=== PATIENT | male | born 1955 | race Caucasian/White ===

== ENCOUNTER → 2017-04-23 | Outpatient (CLI) | payer OTHER ==
[~2017-04-23] MED LIST: ADVIN25/60 INH; ATV/1 PO; CLC100X PO; FLUO20CA36 PO; LAMO200T38 PO; OMEP20CA9 PO; PROP40TA5 PO; PRZ/40 PO; QUET5TAB PO; RISP-99 PO; TRAZ100T29 PO
[2017-04-23 18:13] LABS: BASO % 0.6 %; BASO ABS # 0.04 K/uL (0-0.2); COMPLETE YES; EOS % 1.9 %; HEMATOCRIT 40.8 % (42-52); IG% 0.1 %; LYMPH % 23.1 %; LYMPH ABS # 1.55 K/uL (1.2-3.4); MEAN CELL VOLUME 91.7 fL (80-100); MEAN CORPUSCULAR HEMOGLOBIN 31.2 pg (25-34); MEAN CORPUSCULAR HGB CONC 34.1 g/dl (32-36); MEAN PLATELET VOLUME 9.8 fL (7.4-10.4); MONO % 10.4 %; NEUT % 63.9 %; PLATELET COUNT 213 K/uL (130-400); RED BLOOD COUNT 4.45 M/uL (4.7-6.1)
[2017-04-23 18:21] LABS: ALT/SGPT 32 U/L (12-78); BLOOD UREA NITROGEN 9 mg/dl (7-18); BUN/CREATININE RATIO 12.5 (10-20); CALCIUM 8.8 mg/dl (8.5-10.1); CARBON DIOXIDE 27 mmol/L (21-32); CHLORIDE 106 mmol/L (98-107); CREATININE 0.73 mg/dl (0.60-1.40); GLUCOSE 94 mg/dl (70-99); POTASSIUM 4.2 mmol/L (3.5-5.1); SODIUM 139 mmol/L (136-145)
[2017-04-23 18:32] LABS: ALB/GLOB RATIO 1.8 (0.9-2); ALKALINE PHOSPHATASE 67 U/L (45-117); AST/SGOT 24 U/L (15-37)
[2017-04-23 19:02] LABS: ESTIMATED AVERAGE GLUCOSE 91 mg/dl; HA1C FLAG Normal (Normal)
--- NOTE | 2017-04-29 12:04 | CODING QUERY MEDICAL NECESSITY ---
SUPPORTING DIAGNOSIS NEEDED A supporting diagnosis is required for the test/procedure performed on this patient in order for us to be reimbursed by the patient's insurance. Please provide a supporting diagnosis for the following test/procedure listed below next to the test name along with your signature. *If there is no additional diagnosis for this patient that would support the following test/procedure please document that below next to the test/procedure. Test(s)/Procedure(s) that require a supporting diagnosis: * HEMOGLOBIN A1C DIAGNOSIS: Provider Signature: Date: Thank you Diana Elizondo [facility] Information Management Once completed, please kindly fax back to [phone] For questions please call [phone]
== END | disposition home or self-care (01) ==
LOC: C.LABSPEC 17:33
PROVIDERS: ATTEND Internal Medicine
DX: R53.83 Other fatigue (principal); R63.4 Abnormal weight loss; R73.9 Hyperglycemia, unspecified

== ENCOUNTER 2017-08-03 09:49 | Inpatient (IN) | payer OTHER ==
[~2017-08-03] VITALS: Ht 182.9 cm; Wt 58.7 kg
--- NOTE | 2017-08-03 10:49 | DIAGNOSTIC IMAGING REPORT ---
CHEST ONE VIEW PORTABLE CLINICAL HISTORY: AMS mental status change COMPARISON STUDY: 12/03/2014 FINDINGS: Small left pleural effusion. Parenchymal infiltrate right base. Baseline emphysematous change. Mild stable cardiomegaly. IMPRESSION: 1. Mild parenchymal infiltrate right base. 2. Small left pleural effusion. The above report was generated using voice recognition software. It may contain grammatical, syntax or spelling errors. Electronically signed by: Chente Peralta M.D. 08/03/2017 10:48 AM Dictated Date/Time: 08/03/2017 10:47 AM
--- NOTE | 2017-08-03 11:28 | DIAGNOSTIC IMAGING REPORT ---
HEAD CT NONCONTRAST CT DOSE: 765.09 mGycm HISTORY: Altered mental status. Weakness. TECHNIQUE: Multiaxial CT images of the head were performed without the use of intravenous contrast. Automated exposure control was utilized for this study. A dose lowering technique was utilized adhering to the principles of ALARA. Comparison: Head CT 12/03/2014. Findings: Partial opacification of the right maxillary sinus which has improved. The mastoid air cells are clear. The calvarium and skull base are intact. There is no mass, hematoma, midline shift, acute infarct. White matter hypodensity is nonspecific but suggestive of microvascular ischemic change. The ventricles and sulci demonstrate mild age-related involutional changes. Impression: No significant change compared to the prior study. No acute intracranial abnormality. Electronically signed by: Ray Coker M.D. 08/03/2017 11:27 AM Dictated Date/Time: 08/03/2017 11:23 AM
[2017-08-03] MEDS ORDERED: LEVAQUIN 750MG / 150ML D5W IV STA (11:38)
[2017-08-03 11:49] LABS: BASO % 0.4 %; BASO ABS # 0.03 K/uL (0-0.2); COMPLETE YES; IG% 0.3 %; LYMPH % 13.4 %; LYMPH ABS # 0.92 K/uL (1.2-3.4); MEAN CELL VOLUME 91.5 fL (80-100); MEAN CORPUSCULAR HEMOGLOBIN 30.3 pg (25-34); MEAN CORPUSCULAR HGB CONC 33.1 g/dl (32-36); MEAN PLATELET VOLUME 9.4 fL (7.4-10.4); NEUT % 76.9 %; PLATELET COUNT 166 K/uL (130-400); RED BLOOD COUNT 4.59 M/uL (4.7-6.1); WHITE BLOOD COUNT 6.89 K/uL (4.8-10.8)
[2017-08-03 11:56] LABS: PARTIAL THROMBOPLASTIN RATIO 1.3; PROTHROMBIN TIME (PATIENT) 10.8 SECONDS (9.0-12.0)
[2017-08-03 12:06] LABS: URINE APPEARANCE CLOUDY (CLEAR); URINE BILIRUBIN NEG (NEG); URINE COLOR DK YELLOW; URINE NITRITE POS (NEG); URINE SPECIFIC GRAVITY 1.016 (1.000-1.030); UROBILINOGEN NEG (NEG); ZZURINE CULT IF INDIC CATH YES
[2017-08-03 12:07] LABS: ALT/SGPT 31 U/L (12-78); BLOOD UREA NITROGEN 9 mg/dl (7-18); BUN/CREATININE RATIO 16.5 (10-20); CALCIUM 9.1 mg/dl (8.5-10.1); CARBON DIOXIDE 30 mmol/L (21-32); CHLORIDE 103 mmol/L (98-107); CREATININE 0.55 mg/dl (0.60-1.40); GLUCOSE 97 mg/dl (70-99); POTASSIUM 4.3 mmol/L (3.5-5.1); SODIUM 137 mmol/L (136-145)
[2017-08-03 12:10] LABS: MANUAL MICROSCOPIC REQUIRED? NO; REVIEW REQ? NO
[2017-08-03 12:12] LABS: ALKALINE PHOSPHATASE 78 U/L (45-117); AST/SGOT 19 U/L (15-37)
[2017-08-03] MEDS ORDERED: RISP0.5T10 PO (12:16)
[2017-08-03] MEDS ORDERED: LAMO200T38 PO (12:16)
[2017-08-03] MEDS ORDERED: FLUO20CA35 PO (12:16)
[2017-08-03] MEDS ORDERED: PRLSR20 PO (12:16)
[2017-08-03] MEDS ORDERED: QUET1TAB32 PO (12:16)
[2017-08-03] MEDS ORDERED: LORA-741 PO (12:16)
[2017-08-03] MEDS ORDERED: FLUO40CA8 PO (12:16)
[2017-08-03] MEDS ORDERED: TRAZ100T29 PO (12:17)
[2017-08-03] MEDS ORDERED: FLUV100T12 PO (12:17)
[2017-08-03] MEDS ORDERED: CEFTRIAXONE SOD INJ 1 GM ADDVIAL IV STA (12:32)
[2017-08-03] MEDS ORDERED: INFLUENZA VIRUS QUAD VACCINE 0.5 ML SYR IM. ONE (12:45)
[2017-08-03] MEDS ORDERED: ACETAMINOPHEN 325 MG TAB PO PRN (12:45)
[2017-08-03] MEDS ORDERED: BOOST VANILLA PO SCH ×2 (12:45)
[2017-08-03] MEDS ORDERED: ONDANSETRON INJ 8 MG in DEXTROSE 5% 50ML 50 ML IV PRN (13:45)
[2017-08-03] MEDS ORDERED: LORAZEPAM 0.5 MG TAB PO PRN (13:45)
[2017-08-03 14:44] VITALS: BP 100/65; PULSE 62; TEMP 36.4; O2SAT 90
[2017-08-03] MEDS ORDERED: DO NOT ADMINISTER FLU VACCINE PRN ×3 (14:45)
[2017-08-03] MEDS: SODIUM CHLORIDE 0.9% 1000ML 1,000 ML IV SCH (14:50)
[2017-08-03] MEDS: QUETIAPINE FUMARATE 25 MG TAB PO SCH ×2 (15:48→20:12)
[2017-08-03 16:00] VITALS: BP 100/65; PULSE 62; TEMP 36.4; O2SAT 95; Ht 182.9 cm; Wt 58.7 kg
[2017-08-03] MEDS: LEVALBUTEROL 1.25MG/3ML NEB INH SCH ×2 (16:04→19:46)
[2017-08-03 16:05] VITALS: PULSE 64; O2SAT 95
--- NOTE | 2017-08-03 16:46 | EMERGENCY ROOM VISIT NOTE ---
History Report prepared by Pilar: Deondre Milligan Under the Supervision of: Dr. Cirilo Tony D.O. First contact with patient: 10:12 Chief Complaint: WEAKNESS Stated Complaint: FALLING, WEAKNESS History of Present Illness The patient is a 61 year old male who presents to the Emergency Room with complaints of constant generalized weakness beginning today. He has a history of mental retardation. Per mother, the patient is normally able to speak and would normally know where he is. She states that the patient has been at his mental baseline recently. She is concerned because the patient fell three times today. The patient's mother notes that he has tremors in his upper extremities at baseline. She notes that he takes four doses of Imodium per day as he was prescribed several months ago. The patient states that he fell while doing laundry today. He remembers each fall. He did not hit his head or lose consciousness on any of the falls. The patient also complains of burning with urination. He states this urinary burning been happening "for a while". He denies chest pain, neck pain, abdominal pain, SOB, nausea, or vomiting. The patient has had a cough for over a year. Source of History: patient, parent (mother) Onset: Today Position: other (generalized) Quality: other (weakness) Timing: constant Associated Symptoms: + urinary symptoms (burning), No LOC, No cough (new), No neck pain, No chest pain, No SOB, No nausea, No vomiting, No abdominal pain Review of Systems See HPI for pertinent positives & negatives. A total of 10 systems reviewed and were otherwise negative. Past Medical & Surgical Medical Problems: (1) Mental retardation (2) pneumonia, UTI Surgical Problems: (1) H/O hernia repair Family History No pertinent family history Social History Smoking Status: Former Smoker Housing Status: lives with family Current/Historical Medications Scheduled Fluoxetine (Prozac), 20 MG PO DAILY Fluoxetine (Prozac), 40 MG PO DAILY Fluvoxamine Maleate (Luvox), 50 MG PO HS Lamotrigine (Lamictal), 200 MG PO HS Omeprazole (Prilosec), 20 MG PO BID Quetiapine Fumarate (Seroquel), 50 MG PO TID Risperidone (Risperdal), 0.5 MG PO BID Trazodone Hcl (Trazodone), 200 MG PO HS Scheduled PRN Lorazepam (Ativan), 0.5 MG PO BID PRN for Anxiety Allergies Coded Allergies: Diazepam (Verified Allergy, Unknown, 08/03/17) Physical Exam Vital Signs Date Time Temp Pulse Resp B/P (MAP) Pulse Ox O2 Delivery O2 Flow Rate FiO2 08/03/17 12:49 61 23 93 08/03/17 12:32 108/75 08/03/17 12:19 61 19 95 08/03/17 12:04 60 18 110/65 95 08/03/17 12:01 110/65 08/03/17 11:49 63 24 92 08/03/17 11:42 113/51 08/03/17 10:49 66 23 92 08/03/17 10:37 115/68 08/03/17 10:24 63 08/03/17 10:15 110/71 08/03/17 09:57 36.9 67 18 114/70 94 Room Air Physical Exam GENERAL: Sitting up in bed, disheveled, chronically ill appearing, in no acute distress. HEAD: normal cephalic, atraumatic EYE EXAM: normal conjunctiva, PERRL and EOM's grossly intact OROPHARYNX: no exudate, no erythema, lips, buccal mucosa, and tongue normal and mucous membranes are moist EARS: TMs clear b/l NECK: supple, no nuchal rigidity, no adenopathy, non-tender CHEST: stable to compression anteriorly and posteriorly LUNGS: clear to auscultation. Normal chest wall mechanics HEART: no murmurs, S1 normal and S2 normal ABDOMEN: abdomen soft, non-tender, normo-active bowel sounds, no masses, no rebound or guarding. PELVIS: stable to compression anteriorly and posteriorly BACK: Back is symmetrical on inspection and there is no deformity, no midline tenderness, no CVA tenderness. UPPER EXTREMITIES: full active and passive range of motion of all joints without tenderness to palpation LOWER EXTREMITIES: full active and passive range of motion of all joints without tenderness to palpation NEURO EXAM: Oriented to place and person, but not year. CN II-XII intact. No weakness of the upper or lower extremities. Medical Decision & Procedures ER Provider Diagnostic Interpretation: Radiology results as stated below per my review and the radiologist's interpretation: HEAD CT NONCONTRAST Findings: Partial opacification of the right maxillary sinus which has improved. The mastoid air cells are clear. The calvarium and skull base are intact. There is no mass, hematoma, midline shift, acute infarct. White matter hypodensity is nonspecific but suggestive of microvascular ischemic change. The ventricles and sulci demonstrate mild age-related involutional changes. Impression: No significant change compared to the prior study. No acute intracranial abnormality. Electronically signed by: Ray Coker M.D. 08/03/2017 11:27 AM CHEST ONE VIEW PORTABLE FINDINGS: Small left pleural effusion. Parenchymal infiltrate right base. Baseline emphysematous change. Mild stable cardiomegaly. IMPRESSION: 1. Mild parenchymal infiltrate right base. 2. Small left pleural effusion. The above report was generated using voice recognition software. It may contain grammatical, syntax or spelling errors. Electronically signed by: Chente Peralta M.D. 08/03/2017 10:48 AM Laboratory Results 08/03/17 11:31 Red Blood Count 4.59, Mean Corpuscular Volume 91.5, Mean Corpuscular Hemoglobin 30.3, Mean Corpuscular Hemoglobin Concent 33.1, Mean Platelet Volume 9.4, Neutrophils (%) (Auto) 76.9, Lymphocytes (%) (Auto) 13.4, Monocytes (%) (Auto) 8.0, Eosinophils (%) (Auto) 1.0, Basophils (%) (Auto) 0.4, Neutrophils # (Auto) 5.30, Lymphocytes # (Auto) 0.92, Monocytes # (Auto) 0.55, Eosinophils # (Auto) 0.07, Basophils # (Auto) 0.03 08/03/17 11:31 Test 08/03/17 11:31 08/03/17 11:50 White Blood Count 6.89 K/uL (4.8-10.8) Red Blood Count 4.59 M/uL (4.7-6.1) Hemoglobin 13.9 g/dL (14.0-18.0) Hematocrit 42.0 % (42-52) Mean Corpuscular Volume 91.5 fL (80-100) Mean Corpuscular Hemoglobin 30.3 pg (25-34) Mean Corpuscular Hemoglobin Concent 33.1 g/dl (32-36) Platelet Count 166 K/uL (130-400) Mean Platelet Volume 9.4 fL (7.4-10.4) Neutrophils (%) (Auto) 76.9 % Lymphocytes (%) (Auto) 13.4 % Monocytes (%) (Auto) 8.0 % Eosinophils (%) (Auto) 1.0 % Basophils (%) (Auto) 0.4 % Neutrophils # (Auto) 5.30 K/uL (1.4-6.5) Lymphocytes # (Auto) 0.92 K/uL (1.2-3.4) Monocytes # (Auto) 0.55 K/uL (0.11-0.59) Eosinophils # (Auto) 0.07 K/uL (0-0.5) Basophils # (Auto) 0.03 K/uL (0-0.2) RDW Standard Deviation 45.2 fL (36.4-46.3) RDW Coefficient of Variation 13.5 % (11.5-14.5) Immature Granulocyte % (Auto) 0.3 % Immature Granulocyte # (Auto) 0.02 K/uL (0.00-0.02) Prothrombin Time 10.8 SECONDS (9.0-12.0) Prothromb Time International Ratio 1.0 (0.9-1.1) Activated Partial Thromboplast Time 33.7 SECONDS (21.0-31.0) Partial Thromboplastin Ratio 1.3 Anion Gap 4.0 mmol/L (3-11) Est Creatinine Clear Calc Drug Dose 117.1 ml/min Estimated GFR () 130.4 Estimated GFR (Non- 112.5 BUN/Creatinine Ratio 16.5 (10-20) Calcium Level 9.1 mg/dl (8.5-10.1) Total Bilirubin 0.5 mg/dl (0.2-1) Direct Bilirubin 0.2 mg/dl (0-0.2) Aspartate Amino Transf (AST/SGOT) 19 U/L (15-37) Alanine Aminotransferase (ALT/SGPT) 31 U/L (12-78) Alkaline Phosphatase 78 U/L (45-117) Troponin I < 0.015 ng/ml (0-0.045) Total Protein 5.9 gm/dl (6.4-8.2) Albumin 3.3 gm/dl (3.4-5.0) Urine Color DK YELLOW Urine Appearance CLOUDY (CLEAR) Urine pH 7.0 (4.5-7.5) Urine Specific [place] 1.016 (1.000-1.030) Urine Protein NEG (NEG) Urine Glucose (UA) NEG (NEG) Urine Ketones NEG (NEG) Urine Occult Blood TRACE (NEG) Urine Nitrite POS (NEG) Urine Bilirubin NEG (NEG) Urine Urobilinogen NEG (NEG) Urine Leukocyte Esterase SMALL (NEG) Urine WBC (Auto) 10-30 /hpf (0-5) Urine RBC (Auto) 0-4 /hpf (0-4) Urine Hyaline Casts (Auto) 1-5 /lpf (0-5) Urine Epithelial Cells (Auto) 10-20 /lpf (0-5) Urine Bacteria (Auto) 1+ (NEG) Laboratory results per my review. Medications Administered Medications (Trade) Dose Ordered Sig/Thierno Route Start Time Stop Time Status Last Admin Dose Admin Levofloxacin (Levaquin / D5W) 750 mg NOW STAT IV 08/03/17 11:38 08/03/17 11:39 DC 08/03/17 12:02 750 MG Ceftriaxone Sodium (Rocephin Inj) 1 gm NOW STAT IV 08/03/17 12:32 08/03/17 12:33 DC 08/03/17 12:32 1 GM Enteral Nutritional Formula (Boost) 1 can NOW PO 08/03/17 12:45 08/03/17 16:00 DC 08/03/17 13:41 1 CAN Sodium Chloride 1,000 ml @ 100 mls/hr Q10H IV 08/03/17 12:45 09/02/17 12:44 08/03/17 14:50 100 MLS/HR ECG Indication: weakness Rate (beats per minute): 82 Rhythm: sinus rhythm Findings: 1st degree AV block, no ectopy ED Course ED COURSE: Vital signs were reviewed and appeared normal. The patients medical record was reviewed The above diagnostic studies were performed and reviewed. ED treatments and interventions as stated above. 1020: The patient was evaluated in room B1. A complete history and physical examination was performed. 1138: Ordered Levaquin / D5W 750 mg I. 1232: Ordered Rocephin Inj 1 gm IV. 1235: Upon reevaluation, the patient is resting comfortably. I discussed my findings with the patient and he understands and agrees with the treatment plan. Based on the patients age, coexisting illnesses, exam and lab findings the decision to treat as an inpatient was made. The patient remained stable while under my care. The patient appeared well at the time of discharge. 1245: Ordered Boost 1 can PO. Medical Decision Differential diagnoses include major intracranial, cervical, spinal, thoracic, abdominal, pelvic and neurologic injury. Fracture, contusion, sprain, strain, laceration, abrasions included as well. Patient is a 61-year-old male who was brought in by mom for worsening cough and dysuria. He fell 3 times today and is complaining of feeling very weak. Labs show no significant leukocytosis. BMP all LFTs, bilirubin and troponin was unremarkable. UA shows nitrates, esterase, white cells and +1 bacteria. INR was unremarkable. Patient was updated at bedside. He was given IV antibiotics. He was given IV fluids. Discussed with his PCP who admitted him to the hospital for pneumonia with UTI and recurrent falls. Medication Reconcilliation Current Medication List: was personally reviewed by me Blood Pressure Screening Patient's blood pressure: Normal blood pressure Blood pressure disposition: Did not require urgent referral Consults Time Called: 1232 Consulting Physician: Dr. Samuels -[facility] Returned Call: 1238 I reviewed the patient's case with Dr. Samuels. He will evaluate the patient for further management. Impression Primary Impression: Pneumonia Additional Impression: Recurrent falls Scribe Attestation The scribe's documentation has been prepared under my direction and personally reviewed by me in its entirety. I confirm that the note above accurately reflects all work, treatment, procedures, and medical decision making performed by me. Departure Information Dispostion Being Evaluated By Hospitalist Referrals No Doctor, Assigned (PCP) Patient Instructions My [facility] Problem Qualifiers Primary Impression: Pneumonia Pneumonia type: due to unspecified organism Laterality: unspecified laterality Lung location: unspecified part of lung Qualified Codes: J18.9 - Pneumonia, unspecified organism
[2017-08-03 19:47] VITALS: PULSE 68; O2SAT 95
--- NOTE | 2017-08-03 19:53 | History and Physical ---
History & Physical Date of Service Aug 03, 2017. History & Physical ADMISSION DATE: 08/03/2017 CHIEF COMPLAINT: 61-year-old male admitted through the emergency room with multiple problems including generalized weakness, multiple falls, was also diagnosed with right lower lobe pneumonia and urinary tract infection. PRESENT ILLNESS: patient with chronic obstructive complaint disease, depression, anxiety, obsessive disorder, history of surgery for Zenker's diverticulum. he does have mental handicap His mother called this morning stating that she was very weak. He fell down 3 times. She was concerned about multiple issues with him. I asked her to bring him to the emergency room. He was evaluated by Dr. Tony. Multiple tests were done. His chest x-ray showed evidence of an infiltrate in the right base. His urinalysis was abnormal showing evidence of urinary tract infection. Patient has not had any fever at home or any chills. Denies any congestion. He has had some cough. No sputum. No hemoptysis. Was not having any urinary frequency or burning on urination. Patient was admitted for further treatment PAST MEDICAL HISTORY: * chronic obstructive pulmonary disease. Long-standing. * Long-standing history of depression and anxiety and obsessive disorder.he has been treated by Dr. Saldaña. * Had a long-standing problem with sinus infection and congestion. He has had sinus surgery in the past back in 2004. * Bilateral inguinal hernias repaired in the past but they did recur and require additional surgery * Zenker's diverticulum requiring surgery in 2005 * all his teeth have been extracted. Does not have any dentures. * Mental handicap. SOCIAL HISTORY: he is single. He does have a girlfriend who lives with him and his parents house. They have been together for many years over 20. He does not smoke. He does chew tobacco. No excessive coffee tea or soft drinks. No drugs. 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 FAMILY HISTORY: his father of urine in her bladder cancer with metastases. His mother is living. She has atrial fibrillation, arterial hypertension. He has one brother and one sister. ALLERGIES: * diazepam which caused him psychotic symptomatology CURRENT MEDICATIONS: * lorazepam 0.5 mg twice a day * Fluoxetine 40 mg daily * Luvox 50 mg at bedtime he has 100 mg tablets that he breaks in half * Trazodone 200 mg at bedtime * Omeprazole 20 mg daily * Lamotrigine 200 mg at bedtime * Seroquel 50 mg 3 times a day * Risperidone 0.5 mg at bedtime * B 12 2500 mcg daily * aspirin 81 mg daily * Iron one tablet daily * Advair 250/50 one inhalation twice a day REVIEW OF SYSTEMS: he has been complaining of feeling weak and tired. Denies any headache. No dizziness. He fell down 3 times at home. He just felt weak. There was no loss of consciousness. No head trauma. Denied any earache or sore throat. No neck pain. No chest pain. No shortness of breath. Minimal cough. No sputum. No hemoptysis. No abdominal pain no nausea no vomiting. No problem with his bowel movements. No problem urinating. No pain in his back or extremities. PHYSICAL EXAMINATION: GENERAL : Well developed. Well nourished. No acute distress.weight 58.7 kg, height 182.9 cm, BMI 17.5. VITAL SIGNS : Blood Pressure : 114/70, pulse 67, respiration 18, temperature 36.9, oxygen saturation 94% on room air. SKIN : Warm and dry. No rash. HEENT :He was glasses. Post cataract surgery. Had hearing aid. Does not have any teeth. NECK : Supple. No adenopathy. No thyromegaly. No JVD. Normal carotid pulses. No carotid bruit. CHEST : Normal HEART: Regular heart sounds without any murmur rub or gallop. PMI not displaced. LUNGS: Minimal rhonchi right base. No wheezing. ABDOMEN: Soft nontender. No organomegaly or masses. Good bowel sounds. BACK: No spine or CVA tenderness. EXTREMITIES : No edema clubbing or cyanosis. No joint or muscle tenderness. Good peripheral pulses. NEUROLOGICAL EXAMINATION he is well-developed. No distress. No evidence of any deficit. LABORATORY TEST; WBC count 6809 8, hemoglobin 13.9, hematocrit 42%, platelet count 166,000. Prothrombin time 10.8, INR one, PTT 33.7. Sodium 137, potassium 4.3, chloride 103, CO2 30, BUN 9, creatinine 0.55, glucose 97, calcium 9.1, total bilirubin 0.5, direct bilirubin 2.2, AST 19, ALT 31, alkaline phosphatase 78, total protein 5.9, albumin 3.3, troponin I less than 0.015. CT scan of the the head without contrast was unremarkable. Chest x-ray showed mild parenchymal infiltrates right base. Electrocardiogram showed a sinus rhythm. No acute changes. QT and QTC were normal ASSESSMENT: * right basilar pneumonia * Urinary tract infection * Generalized weakness * Chronic obstructive pulmonary disease * Depression, anxiety, obsessive disorder. * Mental handicap. PLAN: patient was admitted to a medical bed. Resuscitation level I. all his laboratory tests were ordered. Fall precautions ordered. He was started on IV Levaquin, given high flow treatments with Xopenex. He was continued on some of his medications but not all of them. Physical and occupational therapies ordered. Urine culture was ordered. The plan is to wait for his cultures. See how he does with his therapies. Continue his medications. IV fluid. IV Levaquin.
[2017-08-03] MEDS: BOOST VANILLA PO SCH ×2 (20:10)
[2017-08-03] MEDS: HEPARIN SOD 5000 UNIT/0.5 ML CARP SQ SCH (20:32)
[2017-08-03] MEDS: FLUTICASONE/SALMETEROL 250/50 (ADVAIR) 14 PUFF/1 INHALER INH SCH (21:36)
[2017-08-04] VITALS (8 sets, daily range): BP systolic 112–124; BP diastolic 58–70; PULSE 70–88; TEMP 36.7–37.6; O2SAT 90–97
[2017-08-04] MEDS: SODIUM CHLORIDE 0.9% 1000ML 1,000 ML IV SCH ×3 (00:06→22:07)
[2017-08-04] MEDS: LEVALBUTEROL 1.25MG/3ML NEB INH SCH ×4 (01:39→19:04)
--- NOTE | 2017-08-04 07:18 | Clinical Documentation Query ---
CLINICAL DOCUMENTATION QUERY 61 year old male who presents to the Emergency Room with complaints of constant generalized weakness found to have pneumonia and UTI. Nursing assessments and RD consult demonstrate this patient has being underweight. In your clinical opinion is this patient being managed for: ( x ) Mild malnutrition evidenced by BMI of 17.9 and malnutrition risk score of 2 treated with dietary consult, Regular diet, and Boost BID. ( ) Not Agree ( ) Other explanation of clinical findings (Please Explain) ( ) Unable to determine (Please Define) ( ) Need to Discuss The medical record reflects the following clinical findings, treatment, and risk factors. Clinical Indicators: BMI 17.9, Wt 58.7 kg, Risk for malnutrition score of 2. RD consult states that family is reporting weight is down but unsure of exact amount. He is underweight per RD. Treatment: Regular diet, Boost BID, Dietary consult, Risk Factors: Age, acute and chronic illnesses, mentally handicap. Please clarify and document your clinical opinion in the progress notes and discharge summary. Terms such as "probable", "suspected", "likely", "questionable", "possible", or "still to be ruled out" are acceptable. IF IN AGREEMENT, YOU MUST DOCUMENT ABOVE DIAGNOSTIC STATEMENT IN DAILY PROGRESS NOTES AND DISCHARGE SUMMARY. This document is not part of the patient's record. Thank You, Polo Molina, [phone] [phone]
[2017-08-04] MEDS: FLUOXETINE HCL 20 MG CAP PO SCH (08:19)
[2017-08-04] MEDS: BOOST VANILLA PO SCH ×4 (08:19→17:25)
[2017-08-04] MEDS: QUETIAPINE FUMARATE 25 MG TAB PO SCH ×3 (08:19→20:48)
[2017-08-04] MEDS: FLUTICASONE/SALMETEROL 250/50 (ADVAIR) 14 PUFF/1 INHALER INH SCH ×2 (08:19→20:47)
[2017-08-04] MEDS: PANTOprazole SOD 40 MG TAB PO SCH (08:20)
[2017-08-04] MEDS: HEPARIN SOD 5000 UNIT/0.5 ML CARP SQ SCH ×2 (08:22→20:52)
[2017-08-04 08:54] LABS: BASO % 0.4 %; BASO ABS # 0.02 K/uL (0-0.2); COMPLETE YES; EOS % 1.2 %; HEMATOCRIT 41.2 % (42-52); IG% 0.2 %; LYMPH % 20.4 %; LYMPH ABS # 1.06 K/uL (1.2-3.4); MEAN CELL VOLUME 92.2 fL (80-100); MEAN CORPUSCULAR HEMOGLOBIN 30.4 pg (25-34); MEAN PLATELET VOLUME 9.5 fL (7.4-10.4); NEUT % 66.8 %; PLATELET COUNT 186 K/uL (130-400); RED BLOOD COUNT 4.47 M/uL (4.7-6.1)
[2017-08-04 09:18] LABS: BUN/CREATININE RATIO 10.9 (10-20); CALCIUM 8.2 mg/dl (8.5-10.1); CREATININE 0.65 mg/dl (0.60-1.40); POTASSIUM 3.8 mmol/L (3.5-5.1)
[2017-08-04] MEDS ORDERED: LEVOFLOXACIN / D5W 750 MG in PREMIXED IN D5W 150 ML IV SCH (12:00)
[2017-08-04] MEDS ORDERED: LOPERAMIDE HCL 2 MG CAP PO PRN (15:45)
--- NOTE | 2017-08-04 17:43 | Progress Note ---
Progress Note Date of Service Aug 04, 2017. Progress Note 61-year-old male admitted through the emergency room with multiple problems including * Urinary tract infection * Right basilar infiltrate * Generalized weakness * Multiple falls * Chronic obstructive pulmonary disease * Mental handicap Patient was admitted. He was started on IV fluid. IV Levaquin. Physical and occupational therapies were ordered. Overall he seems to have improved. Denied any headache or dizziness. No chest pain. No shortness of breath. Minimal cough. No sputum or hemoptysis. Good appetite. No abdominal pain. No nausea no vomiting. He does have loose stool when he drinks Ensure. EXAMINATION : GENERAL: No distress VITAL SIGNS: Blood pressure 112/69, pulse 71, respiration 18, temperature 37.6, oxygen saturation 90% on room air SKIN: Warm and dry. No rash. HEENT: Decreased hearing. Has hearing aids. Edentulous. NECK: Supple. Nontender. No adenopathy no thyromegaly. No JVD. Scar from prior surgery for Zenker's diverticulum HEART: Regular heart sounds no murmur rub or gallop LUNGS: Decreased breath sounds. No wheezing. ABDOMEN: Soft nontender. No organomegaly or masses BACK: No spinal tenderness EXTREMITIES: No edema clubbing or cyanosis. LABORATORY TESTS : WBC count 5200, hemoglobin 13.6, hematocrit 41.2, platelet count 186,000. Sodium 140, potassium 3.8, chloride 105, CO2 31, BUNs 7, creatinine 0.65, glucose 89, calcium 8.2. Urine culture is growing Escherichia coli. Final report is pending. ASSESSMENT : * Urinary tract infection * Right basilar infiltrate * Generalized weakness * Multiple falls * Chronic obstructive pulmonary disease * Poor nutritional status PLAN : * Urine culture results final report pending * Continue the same antibiotics * Continue IV fluid * Physical and occupational therapies * Supplementation of his meals with the ensure * Anticipating that he will go back home after his acute hospitalization
[2017-08-05] VITALS (7 sets, daily range): BP systolic 107–131; BP diastolic 61–71; PULSE 67–91; TEMP 36.6–37; O2SAT 93–96
[2017-08-05] MEDS: LEVALBUTEROL 1.25MG/3ML NEB INH SCH ×3 (02:11→14:07)
[2017-08-05] MEDS: SODIUM CHLORIDE 0.9% 1000ML 1,000 ML IV SCH ×2 (04:56→14:09)
[2017-08-05] MEDS: FLUTICASONE/SALMETEROL 250/50 (ADVAIR) 14 PUFF/1 INHALER INH SCH (08:31)
[2017-08-05] MEDS: BOOST VANILLA PO SCH ×2 (08:31)
[2017-08-05] MEDS: FLUOXETINE HCL 20 MG CAP PO SCH (08:32)
[2017-08-05] MEDS: PANTOprazole SOD 40 MG TAB PO SCH (08:32)
[2017-08-05] MEDS: QUETIAPINE FUMARATE 25 MG TAB PO SCH ×2 (08:32→14:09)
[2017-08-05] MEDS: HEPARIN SOD 5000 UNIT/0.5 ML CARP SQ SCH (08:38)
[2017-08-05] MEDS ORDERED: LEVOFLOXACIN 750 MG TAB PO SCH (12:00)
[2017-08-05] MEDS ORDERED: LVQ750 PO (17:32)
[2017-08-05] MEDS ORDERED: ADVIN25050 INH (17:32)
--- NOTE | 2017-08-05 17:35 | Discharge Instructions ---
Discharge Instructions Date of Service Aug 05, 2017. Admission Reason for Admission: Pneumonia,Uti Discharge Discharge Diagnosis / Problem: LEFT BASILAR PNEUMONIA. URINARY TRACT INFECTION Discharge Goals Goal(s): Decrease discomfort, Improve function, Increase independence, Improve disease control, Improve nutritional status Activity Recommendations Activity Limitations: resume your previous activity . Instructions / Follow-Up Instructions / Follow-Up Dr Samuels in one week Current Hospital Diet Patient's current hospital diet: Regular Diet Discharge Diet Recommended Diet: Regular Diet Pending Studies Studies pending at discharge: no Medical Emergencies . Who to Call and When: Medical Emergencies: If at any time you feel your situation is an emergency, please call 911 immediately. . Non-Emergent Contact Non-Emergency issues call your: Primary Care Provider . . "Provider Documentation" section prepared by Rodrick Samuels. . VTE Core Measure Inpt VTE Proph given/why not?: Treatment not indicated
--- NOTE | 2017-08-05 17:46 | Progress Note ---
Progress Note Date of Service Aug 05, 2017. Progress Note 61-year-old male admitted with left basilar pneumonia and urinary tract infection. His medical problems also include chronic obstructive pulmonary disease, psychiatric disorder, dyspepsia. Patient was admitted. Started on IV fluid. He is started on IV Levaquin. Overall he is doing well. He is very anxious to go home. He denied any headache or dizziness or lightheadedness. No chest pain no shortness of breath. No cough. No sputum. No nausea no vomiting. He is ambulating. I was able to walk with him around the unit on the fourth floor without any problem. He did not need any support. EXAMINATION : GENERAL: Well-developed in no distress VITAL SIGNS: 107/61, pulse 91, respiration 18, temperature 37, oxygen saturation 93% on room air SKIN: Warm and dry. No rash HEENT: No mucosal abnormalities NECK: Supple. Nontender. No lymph node or thyroid enlargement. HEART: Regular heart sounds LUNGS: Decreased breath sounds. No wheezing no rhonchi ABDOMEN: Soft nontender. BACK: No spinal tenderness EXTREMITIES: No edema clubbing or cyanosis ASSESSMENT : * Right basilar infiltrate consistent with early pneumonia * Urinary tract infection secondary to Escherichia coli * Psychiatric disorder * Dehydration * Chronic obstructive pulmonary disease * Dyspepsia * History of Zenker's diverticulum required surgery PLAN : * His condition has improved. Good appetite. He is ambulating. He remains afebrile. * He is very anxious to go home. * We will go ahead and discharge him tonight. * He will be on oral Levaquin * He will continue his other medications * I will see him in the office in one week
--- NOTE | 2017-08-17 20:17 | Discharge Summary ---
Discharge Summary Date of Service Aug 17, 2017. Discharge Summary ADMISSION DATE: 08/03/2017 DISCHARGE DATE: 08/05/2017 DISCHARGE DIAGNOSES: * right basilar pneumonia * Urinary tract infection * psychiatric disorder * Dehydration * Chronic obstructive pulmonary disease DISCHARGE MEDICATIONS: * Advair Diskus 250/50 one inhalation twice a day * Levofloxacin 750 mg daily for 7 days * Fluoxetine 60 mg daily. He has the 20 mg and the 40 mg capsules at home and he takes one of each * Luvox 100 mg tablets half at bedtime * Lamotrigine 200 mg at bed time * lorazepam 0.5 mg twice a day as needed for anxiety * Omeprazole 20 mg daily * Seroquel 50 mg 3 times a day * Risperidone 0.5 mg twice a day * Trazodone 200 mg at bedtime 61-year-old male admitted with evidence of right lower lobe pneumonia and urinary tract infection. Patient with chronic obstructive lung disease, depression, anxiety, objective disorder, period his mother called the office stating that he was feeling very weak. He fell down 3 times. We asked her to bring him to the emergency room. He was evaluated. He had an abnormal chest x-ray. Also abnormal urinalysis. He was started on IV fluids. Started on IV antibiotics. Arrangements were made for admission. PAST MEDICAL HISTORY, SOCIAL HISTORY, FAMILY HISTORY: As noted on admission history and physical ALLERGIES: diazepam ADMISSION MEDICATIONS: As noted on the home medication list PHYSICAL EXAMINATION AND LABORATORY TESTS ARE NOTED ON ADMISSION HITORY AND PHYSICAL HOSPITAL COURSE: patient was admitted to a medical bed. Resuscitation status I. laboratory tests were ordered. Father risks precautions were taken. He was started on IV Levaquin. Given high flow treatment with Xopenex. Physical and occupational therapies were ordered. Urine culture was done. He remained afebrile. He was not having any significant cough or any sputum. His condition started to improve. His urine culture grew Escherichia coli. He was doing well in therapy. He was ambulating. He was very anxious to go home. Patient was seen by dietitian. Issues related to his diet and supplementation were addressed. Patient was discharged home. Medications as noted above. Followup in the office in one week.
== END 2017-08-05 18:12 | disposition home or self-care (01) | DRG 194 ==
LOC: C.EDB 09:53 → C.MS4W 12:54 → ENRESERV 13:26
PROVIDERS: ADMIT Internal Medicine; ATTEND Internal Medicine
DX: J18.9 Pneumonia, unspecified organism (principal); N39.0 Urinary tract infection, site not specified; J44.9 Chronic obstructive pulmonary disease, unspecified; F79 Unspecified intellectual disabilities; F41.9 Anxiety disorder, unspecified; F32.9 Major depressive disorder, single episode, unspecified; F42.8 Other obsessive-compulsive disorder; Z87.01 Personal history of pneumonia (recurrent); Z87.440 Personal history of urinary (tract) infections; Z87.891 Personal history of nicotine dependence; Z91.81 History of falling

== ENCOUNTER 2024-11-27 20:46 | Inpatient (IN) ==
[2024-11-27 21:42] LABS: Albumin Globulin Ratio 2.1 (0.9-2); Albumin Level 3.6 gm/dl (3.4-5.0); BUN Creatinine Ratio 34.8 (10-20); Bilirubin,Total 0.5 mg/dl (0.2-1.0); Calcium 8.4 mg/dl (8.6-10.3); Creatinine Clr Calc Pharmacy 109.5 ml/min; Globulin 1.7 gm/dl (2.5-4.0); Hematocrit (blood only) 42.4 % (42.0-52.0); Hemoglobin 14.5 g/dl (14.0-18.0); Mean Corpuscular Hgb Conc 34.2 g/dL (32.0-36.0); Mean Corpuscular Volume 96.4 fL (80.0-100.0); Mean Platelet Volume 9.2 fL (9.4-12.4); Platelet Count 350 K/uL (130-400); Potassium 3.5 mmol/L (3.5-5.1); RDW Coefficient of Variation 13.8 % (11.5-14.5); RDW Standard Deviation 49.6 fL (36.4-46.3); Total Protein 5.3 gm/dl (6.0-8.3)
[2024-11-27 21:47] LABS: Troponin I High Sensitivity 12.5 pg/ml (0-20)
[2024-11-27 21:50] LABS: Partial Thromboplastin Ratio 1.2; Partial Thromboplastin Time 31 Seconds (21-31); Prothrombin Time 11.3 Seconds (9.0-12.0)
[2024-11-27 22:07] LABS: Adenovirus PCR Not Detected (NotDetected); Bordetella parapertussis PCR Not Detected (NotDetected); Bordetella pertussis PCR Not Detected (NotDetected); Chlamydia pneumoniae PCR Not Detected (NotDetected); Coronavirus 229E PCR Not Detected (NotDetected); Coronavirus CoV-2 (COVID19)PCR Not Detected (NotDetected); Coronavirus HKU1 PCR Not Detected (NotDetected); Coronavirus NL63 PCR Not Detected (NotDetected); Coronavirus OC43PCR Not Detected (NotDetected); Human Metapneumovirus PCR Not Detected (NotDetected); Influenza A PCR Not Detected (NotDetected); Influenza B PCR Not Detected (NotDetected); Mycoplasma pneumoniae PCR Not Detected (NotDetected); Parainfluenza Virus 1 PCR Not Detected (NotDetected); Parainfluenza Virus 2 PCR Not Detected (NotDetected); Parainfluenza Virus 3 PCR Not Detected (NotDetected); Parainfluenza Virus 4 PCR Not Detected (NotDetected); Respiratory Syncytial VirusPCR Not Detected (NotDetected); Rhinovirus/Enterovirus PCR Not Detected (NotDetected)
[2024-11-27] MEDS: OPTIRAY 320 125ml IV ONE (22:19)
--- NOTE | 2024-11-27 22:32 | XRay Report ---
Exam(s): XR CXR 1 VIEW EXAM: XR Chest, 1 View CLINICAL HISTORY: Reason for exam: Chest pain, nonspecific. TECHNIQUE: Frontal view of the chest. COMPARISON: No relevant prior studies available. FINDINGS: Lungs: There is approximately 9 cm elevation left diaphragm with left lower lung atelectasis versus edema or pneumonia. Small amount of right lung base edema or infiltrate as well. Pleural space: Unremarkable. No pneumothorax. Heart: Unremarkable. No cardiomegaly. Mediastinum: Unremarkable. Normal mediastinal contour. Bones/joints: Unremarkable. No acute fracture. Vasculature: The aortic arch is mildly calcified. IMPRESSION: 1. There is approximately 9 cm elevation left diaphragm with left lower lung atelectasis versus edema or pneumonia. 2. Small amount of right lung base edema or infiltrate as well. Electronically signed by: Young Davis MD 11/27/24 22:31 PM
[2024-11-27 22:34] LABS: Basophils # (auto) 0.04 K/uL (0.00-0.20); Basophils % (auto) 0.2 %; Eosinophils # (auto) 0.02 K/uL (0.00-0.50); Eosinophils % (auto) 0.1 %; Immature Granulocytes # (auto) 0.16 K/uL (0.01-0.20); Immature Granulocytes % (auto) 0.7 %; Lymphocytes # (auto) 1.07 K/uL (1.20-3.40); Lymphocytes % (auto) 4.5 %; Monocytes # (auto) 1.27 K/uL (0.11-0.59); Monocytes % (auto) 5.4 %; Neutrophils # (auto) 21.04 K/uL (1.40-6.50); Neutrophils % (auto) 89.1 %
[2024-11-27 22:45] LABS: Appearance Urine Clear (Clear); Bacteria Urine Automated None Seen (None Seen); Bilirubin Urine Negative (Negative); Blood Urine Negative (Negative); Cast Urine Automated 0-2 /lpf (0-2); Color Urine Dark Yellow; Glucose Urine UA Negative (Negative); Ketones Urine Negative (Negative); Leukocyte Esterase Urine Trace (Negative); Nitrite Urine Negative (Negative); Protein Urine 1+ (Negative); RBC Urine Automated 0-2 /hpf (0-2); Specific Gravity Urine 1.028 (1.000-1.030); Urobilinogen Urine Negative (Negative); WBC Urine Automated 0-5 /hpf (0-5); pH Urine 5.5 (4.5-7.5)
--- NOTE | 2024-11-27 23:14 | CT Scan Report ---
Exam(s): CTA CHEST IV Amt: 119 ML [id number] EXAM: CT Angiography Chest With Intravenous Contrast CLINICAL HISTORY: Reason for exam: substernal chest pain, hx of COPD. TECHNIQUE: Axial computed tomographic angiography images of the chest with intravenous contrast. CTDI is 26.16 mGy and DLP is 383.63 mGy-cm. Automated exposure control was utilized for the study. A dose lowering technique was utilized adhering to the principles of ALARA. MIP reconstructed images were created and reviewed. COMPARISON: No relevant prior studies available. FINDINGS: Pulmonary arteries: The pulmonary arterial tree is well opacified with contrast. No pulmonary embolism is identified. Aorta: The thoracic aorta is mildly calcified and tortuous but nondilated. There is no aneurysm or dissection. Lungs: Small amount of infiltrate in the right middle lobe and right lower lobe as well. Pleural space: Unremarkable. No significant effusion. No pneumothorax. Heart: Unremarkable. No cardiomegaly. No significant pericardial effusion. No evidence of RV dysfunction. Bones/joints: There is a chronic appearing 80% compression fracture of T6 is diffuse osteopenia. No acute fracture is identified. No dislocation. Soft tissues: Unremarkable. Lymph nodes: Unremarkable. No enlarged lymph nodes. Upper abdomen: There is 5 cm elevation of the left diaphragm as well as consolidation and infiltrate involving most of the lower lobe and lingula as well as a portion of the left upper lobe centrally. IMPRESSION: 1. The thoracic aorta is mildly calcified and tortuous but nondilated. There is no aneurysm or dissection. 2. The pulmonary arterial tree is well opacified with contrast. No pulmonary embolism is identified. 3. There is 5 cm elevation of the left diaphragm as well as consolidation and infiltrate involving most of the lower lobe and lingula as well as a portion of the left upper lobe centrally. Consider a combination of pneumonia and atelectasis. There is a small amount of bronchial plugging extending into the left upper lobe. 4. Small amount of infiltrate in the right middle lobe and right lower lobe as well. Electronically signed by: Young Davis MD 11/27/24 23:13 PM
[2024-11-27] MEDS ORDERED: VANCOMYCIN CONSULT ACTIVE PRN (23:17)
[2024-11-27] MEDS: CEFEPIME 2000MG 2,000 MG/20 ML SYR IV STA (23:19)
[2024-11-28] MEDS: DOXYCYCLINE HYCLATE 100 MG in DEXTROSE 5% MINI-B 100 ML IV STA (00:13)
[2024-11-28] MEDS: VANCOMYCIN HCL 1,000 MG in SODIUM CHLORIDE 0.9% 500 ML IV ONE (00:14)
--- NOTE | 2024-11-28 00:29 | Emergency Department Note ---
Impression & Plan Multifocal pneumonia ED Provider Note NAME: MING ESTRADA AGE: 69 SEX: Male INFORMANT: Patient and family ED PROVIDER(S): Christiano Nina MD CHIEF COMPLAINT: Chest pain PLAN: Disposition: Admitted Outpatient prescription management: none Referral: None MEDICAL DECISION MAKING: Patient presented because of worsening pulmonary symptoms and chest discomfort. Workup was initiated. Pneumonia seen on chest x-ray. ECG did not show any acute ischemia. The patient had a marked leukocytosis on his CBC. He is already finished his prednisone and the leukocytosis is above that I would expect for steroids. Patient had blood cultures done. Chemistries were rather unremarkable. He was treated with cefepime, vancomycin and doxycycline for broad-spectrum and atypical coverage. CT imaging of the chest was performed. No pulmonary embolism but multifocal pneumonia seen Most notably in the left lower lobe. Further management in the hospital will be necessary. Patient in agreement. Consultation was made with Dr. Ayaz Ledesma of the [facility] service. Patient was evaluated in the ER for further management. Care/management discussed with: warehouse distribution manager Level of care consideration(s): After review of the information above and other included data, I feel the patient requires escalation of care to admission Triage Nursing notes: reviewed and agree them. Vital Signs: reviewed and remarkable for no significant abnormalities Additional History obtained from: none Chronic Medical/Social Conditions affecting care: COPD Prior/ Outside/ External records reviewed: none Differential Diagnosis: Reactive airway disease, pneumonia, pneumothorax, COPD, CHF, infections, cardiac ischemia, pulmonary embolism, musculoskeletal, gastrointestinal, as well as other pathologies. Diagnostics, independently interpreted by me: ECG: Twelve-lead ECG reveals normal sinus rhythm at 63 beats per minute. No evidence of pericarditis, ischemia, ectopy, or dysrhythmia. Cardiac Monitoring: Cardiac monitoring ordered by me: The patient was placed on continuous cardiac monitoring and observed. It revealed a normal sinus rhythm at 65 beats per minute without ectopy or evidence of dysrhythmia. Medical decision rules: none Imaging studies: Chest x-ray reveals left-sided pneumonia. CT PE study reveals left lower lobe and right perihilar infiltrates. I refer you to the EMR for further details. HPI: 69 year old Male arrives for evaluation of chest pain and cough. Patient presents with intermittent substernal chest discomfort and cough. He has had symptoms for a few weeks and was seen by his primary physician. Has a history of COPD. He was placed on an antibiotic and prednisone. He has finished the prednisone at this point. He was feeling more symptomatic and came to the emergency department. Patient reports his discomfort is a 4 out of 10. Pt denies LOC, headache, fevers, chills, neck pain, nausea, vomiting, abdominal pain, back pain, melena, hematochezia, urinary symptoms, numbness, weakness, or other complaints. PAST MEDICAL HISTORY: See Below, COPD PAST SURGICAL HISTORY: See Below, SOCIAL HISTORY: See Below, former smoker HOME MEDICATIONS: See Below ALLERGIES: See Below VITALS: See Below PHYSICAL EXAMINATION: GENERAL: Awake, alert, nontoxic-appearing, in no distress HENT: Normocephalic, atraumatic. Oropharynx unremarkable. EYES: Normal conjunctiva. Sclera non-icteric. NECK: Inspection normal. Non-tender. Supple. No nuchal rigidity. FROM. No masses. RESPIRATORY: Scattered rhonchi and rales. Wet sounding cough. Mildly increased respiratory effort. CARDIAC: Normal rate. Normal rhythm. No murmurs. No rubs. Extremities warm and well perfused. Pulses equal. No JVD. GI: Soft, non-distended. No tenderness to palpation. No rebound or guarding. No masses. RECTAL: Deferred. MUSCULOSKELETAL: Atraumatic. Chest examination reveals no tenderness. The back is symmetrical on inspection without obvious abnormality. There is no CVA tenderness to palpation. No joint edema. LOWER EXTREMITIES: Calves are equal size bilaterally and non-tender. 2+ edema. No discoloration. NEURO: Normal sensorium. No sensory or motor deficits noted. SKIN: No rash or jaundice noted. PROCEDURES: none CRITICAL CARE: none OBSERVATION NOTE: none Past Med/Surg History Problem List (Updated 11/28/24 @ 00:28 by Christiano Nina MD) Multifocal pneumonia (Acute) COPD exacerbation (Acute) Onychomycosis Hypogonadism in male Insomnia Osteoporosis COPD (chronic obstructive pulmonary disease) Constipation Low back pain Recurrent UTI HTN (hypertension) (~07/13/24) Anemia BPH (benign prostatic hyperplasia) Chewing tobacco nicotine dependence GERD with esophagitis Anxiety Depression Seasonal allergies Asthma Medical History (Updated 11/28/24 @ 00:28 by Christiano Nina MD) Hx of compression fracture of spine L1 and L2 Fracture Risk Assessment Score (FRAX) indicating greater than 3% risk for hip fracture Fracture Risk Assessment Score (FRAX) indicating greater than 20% risk for major osteoporosis-related fracture Rib pain on left side Weight loss Acute UTI Chronic diarrhea Fecal incontinence Agitation Intellectual disability Otomycosis Sensorineural hearing loss (SNHL) of both ears Chronic rhinitis Chronic sinusitis Excessive cerumen in both ear canals Recurrent falls Surgical History History of sinus surgery History of tooth extraction History of cataract extraction with lens replacement History of clubfoot correction History of hernia repair Family History (Updated 08/11/24 @ 14:49 by FELIPE Cochran) Mother Hearing loss Father Hypertension Cancer Prostate cancer Rheumatoid arthritis Aunt Stroke Grandfather (Maternal) Stomach cancer Other No family history of adverse response to anesthesia No family history of bleeding disorder Denies family history of Ovarian cancer Diabetes Myocardial infarction Breast cancer Lung cancer Colorectal cancer Social History (Updated 10/18/24 @ 14:17 by SHANNAN Blackburn) Smoking Status: Former smoker Tobacco Type: Cigarettes Age Started Using Tobacco: 18; Age Quit Using Tobacco: 28; packs per day: 0; Second Hand Exposure: No; Do You Dip or Chew Tobacco: Yes; Hx Alcohol Use: Yes Alcohol type: beer Alcohol Intake Frequency: Monthly or Less Hx Substance Use: No Preferred Language: Ukrainian Visual Impairment: Limited Hearing Ability: Use of Hearing Aid marital status: Single Current Living Situation: Family current occupational status: disabled Feels Safe at Home: Yes Childhood Exposure to Second-Hand Smoke: No caffeine: Yes Dental Care, Regularly: No Physical Activity Frequency: Does not Exercise Seatbelt Use: always Sunscreen Use: Yes Assistive Devices: Cane, Glasses and Hearing Aid - Bilateral Allergies Allergies Allergy/AdvReac Type Severity Reaction Status Date / Time diazepam AdvReac Intermediate OPPOSITE Verified 11/16/24 13:28 EFFECT Home Meds Home Medications Medication Instructions Recorded Confirmed acetaminophen 325 mg tablet 650 mg PO QID PRN Pain 06/02/22 11/27/24 (Tylenol) ferrous sulfate 325 mg (65 mg 325 mg PO DAILY 06/02/22 11/27/24 iron) tablet (FeroSul) mecobalamin (vitamin B12) 5,000 5,000 mcg PO DAILY 08/22/22 02/16/25 mcg disintegrating tablet multivitamin 1 tab PO DAILY 06/02/22 11/27/24 vitamin B complex 1 cap PO DAILY 06/02/22 11/27/24 cholecalciferol (vitamin D3) 50 50 mcg PO DAILY 04/07/24 11/27/24 mcg (2,000 unit) capsule (Vitamin D3) melatonin 3 mg tablet 6 mg PO HS PRN Pain 11/27/24 11/27/24 Previous Rx's Medication Instructions Recorded nebulizer accessories #1 ea 10/30/23 nebulizer and compressor #1 ea 10/30/23 omeprazole 40 mg capsule,delayed 40 mg PO DAILY #90 caps 05/17/24 release fluoxetine 20 mg capsule 20 mg PO DAILY #90 caps 06/16/24 fluoxetine 40 mg capsule 40 mg PO DAILY #90 caps 06/16/24 quetiapine 50 mg tablet 50 mg PO BID #180 tabs 06/16/24 trazodone 100 mg tablet 100 mg PO HS #90 tabs 07/13/24 fluticasone fur. 200 mcg-umeclid 1 inh inhalation Q24H #60 ea 09/15/24 62.5 mcg-vilant 25 mcg inhalat.powder (Trelegy Ellipta) sulfamethoxazole 400 0.5 tab PO DAILY 90 days #45 tabs 09/15/24 mg-trimethoprim 80 mg tablet (Bactrim) propranolol 40 mg tablet 40 mg PO BID 90 days #180 tabs 10/06/24 lorazepam 0.5 mg tablet 0.5 mg PO TID anxiety #90 tabs 10/17/24 loperamide 2 mg capsule (Imodium 2 mg PO DAILY PRN loose stool #120 10/18/24 A-D) caps BD GINO 2 GEN PEN NDL 32G 4MM #360 ea 11/24/24 teriparatide 20 mcg/dose (600 20 mcg (0.08 mL) subcut DAILY #2.4 11/24/24 mcg/2.4 mL) subcutaneous pen mL injector Results & Data (ED) Vital Signs Vital Signs - 24 hr 11/27/24 20:53 11/27/24 21:01 11/27/24 21:09 Temperature 36.7 C Temperature Source Temporal Artery Scan Pulse Rate 137 H 65 Pulse Rate [Left Finger] Respiratory Rate 20 Respiratory Effort / Characteristics Non-Labored Spontaneous Respiratory Depth Normal Respiratory Pattern Regular Blood Pressure 164/87 H Blood Pressure [Right Arm] Blood Pressure Mean 112 Blood Pressure Mean [Right Arm] Blood Pressure Position Sitting Pulse Oximetry 97 88 L Oxygen Delivery Method Room Air Room Air Oxygen Flow Rate Sepsis Recent Fever Within 48 Hours No Sepsis New/Unexplained Change in Mental Status No Sepsis Action Taken by Nursing No Action Required Oxygen Flow Rate - Titration 2 Pulse Oximetry Post Tiitration 93 11/27/24 21:09 11/27/24 21:14 11/27/24 23:20 Temperature Temperature Source Pulse Rate Pulse Rate [Left Finger] 63 Respiratory Rate 22 Respiratory Effort / Characteristics Respiratory Depth Respiratory Pattern Blood Pressure Blood Pressure [Right Arm] 153/78 H Blood Pressure Mean Blood Pressure Mean [Right Arm] 103 Blood Pressure Position Pulse Oximetry 95 95 95 Oxygen Delivery Method Room Air Nasal Cannula Nasal Cannula Nasal Cannula Oxygen Flow Rate 2 2 3 Sepsis Recent Fever Within 48 Hours Sepsis New/Unexplained Change in Mental Status Sepsis Action Taken by Nursing Oxygen Flow Rate - Titration Pulse Oximetry Post Tiitration 11/28/24 00:19 Temperature Temperature Source Pulse Rate Pulse Rate [Left Finger] 65 Respiratory Rate 24 Respiratory Effort / Characteristics Respiratory Depth Respiratory Pattern Blood Pressure Blood Pressure [Right Arm] 138/72 Blood Pressure Mean Blood Pressure Mean [Right Arm] 94 Blood Pressure Position Pulse Oximetry 93 Oxygen Delivery Method Nasal Cannula Oxygen Flow Rate 3 Sepsis Recent Fever Within 48 Hours Sepsis New/Unexplained Change in Mental Status Sepsis Action Taken by Nursing Oxygen Flow Rate - Titration Pulse Oximetry Post Tiitration Laboratory Data 11/27/24 21:04 11/27/24 21:04 Lab Results 11/27/24 11/27/24 Range/Units 21:04 22:27 WBC 23.60 H (4.8-10.8) K/ul RBC 4.40 L (4.70-6.10) M/uL Hgb 14.5 (14.0-18.0) g/dl Hct 42.4 (42.0-52.0) % MCV 96.4 (80.0-100.0) fL MCH 33.0 (25.0-34.0) pg MCHC 34.2 (32.0-36.0) g/dL RDW Std Deviation 49.6 H (36.4-46.3) fL RDW Coeff of Fabio 13.8 (11.5-14.5) % Plt Count 350 (130-400) K/uL MPV 9.2 L (9.4-12.4) fL Immature Gran % (Auto) 0.7 % Neut % (Auto) 89.1 % Lymph % (Auto) 4.5 % [place] % (Auto) 5.4 % Eos % (Auto) 0.1 % Baso % (Auto) 0.2 % Neut # (Auto) 21.04 H (1.40-6.50) K/uL Lymph # (Auto) 1.07 L (1.20-3.40) K/uL [place] # (Auto) 1.27 H (0.11-0.59) K/uL Eos # (Auto) 0.02 (0.00-0.50) K/uL Baso # (Auto) 0.04 (0.00-0.20) K/uL Immature Gran # (Auto) 0.16 (0.01-0.20) K/uL PT 11.3 (9.0-12.0) Seconds INR 1.0 (0.9-1.1) APTT 31 (21-31) Seconds PTT Ratio 1.2 Sodium 140 (136-145) mmol/L Potassium 3.5 (3.5-5.1) mmol/L Chloride 107 (98-107) mmol/L Carbon Dioxide 29 (21-32) mmol/L Anion Gap 4 (3-11) BUN 16 (6-23) mg/dl Creatinine 0.46 L (0.6-1.4) mg/dl Est Cr Clr Drug Dosing 109.5 ml/min eGFR 113.23 BUN/Creatinine Ratio 34.8 H (10-20) Glucose 113 H (70-99(Fasting)) mg/dl Calcium 8.4 L (8.6-10.3) mg/dl Total Bilirubin 0.5 (0.2-1.0) mg/dl AST 33 (13-39) U/L ALT 74 H (7-52) U/L Alkaline Phosphatase 126 H (34-104) U/L Troponin I High Sens 12.5 (0-20) pg/ml B-Natriuretic Peptide 365 H (0-100) pg/ml Total Protein 5.3 L (6.0-8.3) gm/dl Albumin 3.6 (3.4-5.0) gm/dl Globulin 1.7 L (2.5-4.0) gm/dl Albumin/Globulin Ratio 2.1 H (0.9-2) Lipase 12 (11-82) U/L Procalcitonin 0.03 (0-0.5) ng/ml Urine Color Dark Yellow Urine Appearance Clear (Clear) Urine pH 5.5 (4.5-7.5) Ur Specific Jesse 1.028 (1.000-1.030) Urine Protein 1+ H (Negative) Urine Glucose (UA) Negative (Negative) Urine Ketones Negative (Negative) Urine Blood Negative (Negative) Urine Nitrite Negative (Negative) Urine Bilirubin Negative (Negative) Urine Urobilinogen Negative (Negative) Ur Leukocyte Esterase Trace H (Negative) Urine WBC (Auto) 0-5 (0-5) /hpf Urine RBC (Auto) 0-2 (0-2) /hpf U Hyaline Cast (Auto) 0-2 (0-2) /lpf U Epithel Cells (Auto) 3-5 H (0-2) /hpf Urine Bacteria (Auto) None Seen (None Seen) Adenovirus (PCR) Not Detected (NotDetected) B. pertussis DNA (PCR) Not Detected (NotDetected) B.parapertussis DNA PCR Not Detected (NotDetected) C. pneumoniae DNA (PCR) Not Detected (NotDetected) Coronavirus OC43 (PCR) Not Detected (NotDetected) Coronavirus HKU1 (PCR) Not Detected (NotDetected) Coronavirus 229E (PCR) Not Detected (NotDetected) SARS-CoV-2 (PCR) Not Detected (NotDetected) Coronavirus NL63 (PCR) Not Detected (NotDetected) Human Metapneumovir PCR Not Detected (NotDetected) Influenza Type A (PCR) Not Detected (NotDetected) Influenza Type B (PCR) Not Detected (NotDetected) M. pneumoniae (PCR) Not Detected (NotDetected) Parainfluenza 1 (PCR) Not Detected (NotDetected) Parainfluenza 2 (PCR) Not Detected (NotDetected) Parainfluenza 3 (PCR) Not Detected (NotDetected) Parainfluenza 4 (PCR) Not Detected (NotDetected) RSV (PCR) Not Detected (NotDetected) Entero/Rhino (PCR) Not Detected (NotDetected) Administered Medications Vancomycin HCl 1,000 mg/ (Sodium Chloride) 520 mls @ 200 mls/hr IV NOW ONE Stop: 11/28/24 01:52 Last Admin: 11/28/24 00:14 Dose: 200 mls/hr Documented By: ISIDRO Doxycycline Hyclate 100 mg/ (Dextrose) 100 mls @ 50 mls/hr IV NOW STA Stop: 11/28/24 01:16 Last Admin: 11/28/24 00:13 Dose: 50 mls/hr Documented By: CTK Discontinued Medications Cefepime HCl (Maxipime 2000mg) 2,000 mg in 20 mls @ 5 mls/min IV NOW STA; Protocol Stop: 11/27/24 22:02 Last Admin: 11/27/24 23:19 Dose: 5 mls/min Documented By: ISIDRO Ioversol (Optiray 320 125ml) 119 ml IV ONCE ONE Stop: 11/27/24 22:19 Last Admin: 11/27/24 22:19 Dose: 119 ml Documented By: Imaging Data Radiologist's Impression: Chest X-Ray 11/27/24 21:02 Exam(s): XR CXR 1 VIEW EXAM: XR Chest, 1 View CLINICAL HISTORY: Reason for exam: Chest pain, nonspecific. TECHNIQUE: Frontal view of the chest. COMPARISON: No relevant prior studies available. FINDINGS: Lungs: There is approximately 9 cm elevation left diaphragm with left lower lung atelectasis versus edema or pneumonia. Small amount of right lung base edema or infiltrate as well. Pleural space: Unremarkable. No pneumothorax. Heart: Unremarkable. No cardiomegaly. Mediastinum: Unremarkable. Normal mediastinal contour. Bones/joints: Unremarkable. No acute fracture. Vasculature: The aortic arch is mildly calcified. IMPRESSION: 1. There is approximately 9 cm elevation left diaphragm with left lower lung atelectasis versus edema or pneumonia. 2. Small amount of right lung base edema or infiltrate as well. Electronically signed by: Young Davis MD 11/27/24 22:31 PM Chest CTA 11/27/24 21:57 Exam(s): CTA CHEST IV Amt: 119 ML [id number] EXAM: CT Angiography Chest With Intravenous Contrast CLINICAL HISTORY: Reason for exam: substernal chest pain, hx of COPD. TECHNIQUE: Axial computed tomographic angiography images of the chest with intravenous contrast. CTDI is 26.16 mGy and DLP is 383.63 mGy-cm. Automated exposure control was utilized for the study. A dose lowering technique was utilized adhering to the principles of ALARA. MIP reconstructed images were created and reviewed. COMPARISON: No relevant prior studies available. FINDINGS: Pulmonary arteries: The pulmonary arterial tree is well opacified with contrast. No pulmonary embolism is identified. Aorta: The thoracic aorta is mildly calcified and tortuous but nondilated. There is no aneurysm or dissection. Lungs: Small amount of infiltrate in the right middle lobe and right lower lobe as well. Pleural space: Unremarkable. No significant effusion. No pneumothorax. Heart: Unremarkable. No cardiomegaly. No significant pericardial effusion. No evidence of RV dysfunction. Bones/joints: There is a chronic appearing 80% compression fracture of T6 is diffuse osteopenia. No acute fracture is identified. No dislocation. Soft tissues: Unremarkable. Lymph nodes: Unremarkable. No enlarged lymph nodes. Upper abdomen: There is 5 cm elevation of the left diaphragm as well as consolidation and infiltrate involving most of the lower lobe and lingula as well as a portion of the left upper lobe centrally. IMPRESSION: 1. The thoracic aorta is mildly calcified and tortuous but nondilated. There is no aneurysm or dissection. 2. The pulmonary arterial tree is well opacified with contrast. No pulmonary embolism is identified. 3. There is 5 cm elevation of the left diaphragm as well as consolidation and infiltrate involving most of the lower lobe and lingula as well as a portion of the left upper lobe centrally. Consider a combination of pneumonia and atelectasis. There is a small amount of bronchial plugging extending into the left upper lobe. 4. Small amount of infiltrate in the right middle lobe and right lower lobe as well. Electronically signed by: Young Davis MD 11/27/24 23:13 PM Discharge Plan Visit Data Chief Complaint: Chest Pain Stated Complaint: CHEST PAIN, SOB, ED Provider: Christiano Nina Discharge Problem: Multifocal pneumonia Forms Stand Alone Forms: My [facility] [employer] Prescriptions Prescriptions: No Action omeprazole 40 mg capsule,delayed release(DR/EC) 40 mg PO DAILY Qty: 90 3RF quetiapine 50 mg tablet 50 mg PO BID Qty: 180 3RF Rx Instructions: TAKE 1 TABLET BY MOUTH TWICE A DAY fluoxetine 20 mg capsule 20 mg PO DAILY Qty: 90 3RF Rx Instructions: TOTAL DOSE 60 MG--TAKES WITH 40 MG CAP fluoxetine 40 mg capsule 40 mg PO DAILY Qty: 90 3RF Rx Instructions: TOTAL DOSE 60 MG--20 MG CAP. Trelegy Ellipta 200-62.5-25 mcg blister with device 1 inh inhalation Q24H Qty: 60 3RF sulfamethoxazole-trimethoprim [Bactrim] 400-80 mg tablet 0.5 tab PO DAILY 90 Days Qty: 45 3RF Rx Instructions: take one half a tablet once a day propranolol 40 mg tablet 40 mg PO BID 90 Days Qty: 180 1RF lorazepam 0.5 mg tablet 0.5 mg PO TID Qty: 90 2RF (DME) BD GINO 2 GEN PEN NDL 32G 4MM See Rx Instructions .Route .MEDSUPPLY Qty: 360 1RF Rx Instructions: As directed NEEDLES TO BE USES WITH TYMLOS INJECTIONS DAILY teriparatide 20 mcg/dose (600mcg/2.4mL) pen injector 20 mcg subcut DAILY Qty: 2.4 3RF (DME) nebulizer accessories Kit See Rx Instructions .ROUTE .MEDSUPPLY Qty: 1 0RF Rx Instructions: As directed (DME) nebulizer and compressor Device See Rx Instructions .ROUTE .MEDSUPPLY Qty: 1 0RF Rx Instructions: As directed mecobalamin (vitamin B12) 5,000 mcg tablet,disintegrating 5,000 mcg PO DAILY vitamin B complex Capsule 1 cap PO DAILY ferrous sulfate [FeroSul] 325 mg (65 mg iron) tablet 325 mg PO DAILY multivitamin Tablet 1 tab PO DAILY acetaminophen [Tylenol] 325 mg tablet 650 mg PO QID PRN (Reason: Pain) cholecalciferol (vitamin D3) [Vitamin D3] 50 mcg (2,000 unit) capsule 50 mcg PO DAILY loperamide [Imodium A-D] 2 mg capsule 2 mg PO DAILY PRN (Reason: loose stool) Qty: 120 2RF trazodone 100 mg tablet 100 mg PO HS Qty: 90 3RF melatonin 3 mg Tablet 6 mg PO HS PRN (Reason: Pain) Referrals Referrals: Syed Capone, [Primary Care Provider] -
[2024-11-28] MEDS ORDERED: VANCOMYCIN CONSULT ACTIVE PRN (02:15)
[2024-11-28] MEDS ORDERED: NON-FORMULARY MEDICATION (Fluticasone-Umeclidin-Vilanter [Trelegy Ellipta] 200-62.5-25 mcg INH SCH (02:15)
[2024-11-28] MEDS ORDERED: ONDANSETRON INJ 2 MG/ML 2 ML VIAL IV PRN (02:15)
--- NOTE | 2024-11-28 03:15 | History & Physical Report ---
Date of Service November 28, 2024 Assessment & Plan (1) Multifocal pneumonia: (2) COPD exacerbation: (3) Generalized weakness: (4) Acute respiratory failure with hypoxia: Plan The patient is a 69-year-old male with past medical history including COPD, osteoporosis, insomnia, constipation, recurring or tract infection, hypertension, BPH, GERD with esophagitis, anxiety with depression, seasonal allergies and asthma. The patient presents to the emergency department with complaint of worsening shortness of breath, dyspnea on exertion, productive cough over the past few days. Workup in the emergency department included chest x-ray showing significant multifocal pneumonia, in part associated with large left hiatal hernia, and bibasilar infiltrates. He was started on vancomycin, cefepime, doxycycline IV and was then referred for evaluation for admission. He was found to have pulse ox 88% on room air, which improved to 94% with 2 L nasal cannula. He did complain of feeling generally weak, and had decreased oral intake over the past few days as well. #Multifocal pneumonia/acute respiratory failure with hypoxia- Respiratory BioFire testing negative Vancomycin IV per pharmacokinetic monitoring Cefepime 2 g IV every 12 hours Doxycycline 100 mg IV every 12 hours DuoNebs every 2 hours as needed Zofran 4 mg IV every 6 hours as needed Consult speech therapy for assessment for possible aspiration Large hiatal hernia/GERD with esophagitis- Place on pantoprazole 40 mg IV daily Consult speech therapy as noted above, patient looks to be an aspiration risk Generalized deconditioning/ambulatory dysfunction- Consult PT/OT Anxiety with depression- Continue, trazodone, quetiapine, fluoxetine and lorazepam Admission and Anticipated Discharge Date Admission Date: November 28, 2024 History of Present Illness Chief Complaint: The patient presents to the emergency department with complaint of worsening shortness of breath, dyspnea on exertion, productive cough over the past few days. Workup in the emergency department included chest x-ray showing significant multifocal pneumonia, in part associated with large left hiatal hernia, and bibasilar infiltrates. He was started on vancomycin, cefepime, doxycycline IV and was then referred for evaluation for admission. Primary Care Provider: Syed Capone DO The patient is a 69-year-old male with past medical history including COPD, osteoporosis, insomnia, constipation, recurring or tract infection, hypertension, BPH, GERD with esophagitis, anxiety with depression, seasonal allergies and asthma. The patient presents to the emergency department with complaint of worsening shortness of breath, dyspnea on exertion, productive cough over the past few days. Workup in the emergency department included chest x-ray showing significant multifocal pneumonia, in part associated with large left hiatal hernia, and bibasilar infiltrates. He was started on vancomycin, cefepime, doxycycline IV and was then referred for evaluation for admission. He was found to have pulse ox 88% on room air, which improved to 94% with 2 L nasal cannula. Allergies Allergy/AdvReac Type Severity Reaction Status Date / Time diazepam AdvReac Intermediate OPPOSITE Verified 11/16/24 13:28 EFFECT Home Medications Medication Instructions Recorded Confirmed Type acetaminophen 325 mg tablet 650 mg PO QID PRN Pain 06/02/22 11/27/24 History (Tylenol) ferrous sulfate 325 mg (65 mg 325 mg PO DAILY 06/02/22 11/27/24 History iron) tablet (FeroSul) mecobalamin (vitamin B12) 5,000 5,000 mcg PO DAILY 06/02/22 11/27/24 History mcg disintegrating tablet multivitamin 1 tab PO DAILY 06/02/22 11/27/24 History vitamin B complex 1 cap PO DAILY 06/02/22 11/27/24 History nebulizer accessories #1 ea 10/30/23 11/27/24 Rx nebulizer and compressor #1 ea 10/30/23 11/27/24 Rx cholecalciferol (vitamin D3) 50 50 mcg PO DAILY 04/07/24 11/27/24 History mcg (2,000 unit) capsule (Vitamin D3) omeprazole 40 mg capsule,delayed 40 mg PO DAILY #90 caps 05/17/24 11/27/24 Rx release fluoxetine 20 mg capsule 20 mg PO DAILY #90 caps 06/16/24 11/27/24 Rx fluoxetine 40 mg capsule 40 mg PO DAILY #90 caps 06/16/24 11/27/24 Rx quetiapine 50 mg tablet 50 mg PO BID #180 tabs 06/16/24 11/27/24 Rx trazodone 100 mg tablet 100 mg PO HS #90 tabs 07/13/24 11/27/24 Rx fluticasone fur. 200 mcg-umeclid 1 inh inhalation Q24H #60 ea 09/15/24 11/27/24 Rx 62.5 mcg-vilant 25 mcg inhalat.powder (Trelegy Ellipta) sulfamethoxazole 400 0.5 tab PO DAILY 90 days #45 tabs 09/15/24 11/27/24 Rx mg-trimethoprim 80 mg tablet (Bactrim) propranolol 40 mg tablet 40 mg PO BID 90 days #180 tabs 10/06/24 11/27/24 Rx lorazepam 0.5 mg tablet 0.5 mg PO TID anxiety #90 tabs 10/17/24 11/27/24 Rx loperamide 2 mg capsule (Imodium 2 mg PO DAILY PRN loose stool #120 10/18/24 11/27/24 Rx A-D) caps BD GINO 2 GEN PEN NDL 32G 4MM #360 ea 11/24/24 11/27/24 Rx teriparatide 20 mcg/dose (600 20 mcg (0.08 mL) subcut DAILY #2.4 11/24/24 11/27/24 Rx mcg/2.4 mL) subcutaneous pen mL injector melatonin 3 mg tablet 6 mg PO HS PRN Pain 11/27/24 11/27/24 History Past Med/Surg History Problem List (Updated 11/28/24 @ 03:11 by Ayaz Ledesma MD) Acute respiratory failure with hypoxia Generalized weakness Ambulatory dysfunction Multifocal pneumonia (Acute) COPD exacerbation (Acute) Onychomycosis Hypogonadism in male Insomnia Osteoporosis COPD (chronic obstructive pulmonary disease) Constipation Low back pain Recurrent UTI HTN (hypertension) (~07/13/24) Anemia BPH (benign prostatic hyperplasia) Chewing tobacco nicotine dependence GERD with esophagitis Anxiety Depression Seasonal allergies Asthma Medical History (Updated 11/28/24 @ 03:11 by Ayaz Ledesma MD) Hx of compression fracture of spine L1 and L2 Fracture Risk Assessment Score (FRAX) indicating greater than 3% risk for hip fracture Fracture Risk Assessment Score (FRAX) indicating greater than 20% risk for major osteoporosis-related fracture Rib pain on left side Weight loss Acute UTI Chronic diarrhea Fecal incontinence Agitation Intellectual disability Otomycosis Sensorineural hearing loss (SNHL) of both ears Chronic rhinitis Chronic sinusitis Excessive cerumen in both ear canals Recurrent falls Surgical History History of sinus surgery History of tooth extraction History of cataract extraction with lens replacement History of clubfoot correction History of hernia repair Family History (Updated 08/11/24 @ 14:49 by FELIPE Cochran) Mother Hearing loss Father Hypertension Cancer Prostate cancer Rheumatoid arthritis Aunt Stroke Grandfather (Maternal) Stomach cancer Other No family history of adverse response to anesthesia No family history of bleeding disorder Denies family history of Ovarian cancer Diabetes Myocardial infarction Breast cancer Lung cancer Colorectal cancer Social History (Updated 10/18/24 @ 14:17 by SHANNAN Blackburn) Smoking Status: Former smoker Tobacco Type: Cigarettes Age Started Using Tobacco: 18; Age Quit Using Tobacco: 28; packs per day: 0; Second Hand Exposure: No; Do You Dip or Chew Tobacco: Yes; Hx Alcohol Use: Yes Alcohol type: beer Alcohol Intake Frequency: Monthly or Less Hx Substance Use: No Preferred Language: Georgian Visual Impairment: Limited Hearing Ability: Use of Hearing Aid marital status: Single Current Living Situation: Family current occupational status: disabled Feels Safe at Home: Yes Childhood Exposure to Second-Hand Smoke: No caffeine: Yes Dental Care, Regularly: No Physical Activity Frequency: Does not Exercise Seatbelt Use: always Sunscreen Use: Yes Assistive Devices: Cane, Glasses and Hearing Aid - Bilateral Review of Systems Review of Systems: The patient denies chest pain, palpitations, lower extremity swelling, sore throat, fevers, chills, sweats, weight change, fatigue, nausea, vomiting, diarrhea , constipation, abdominal pain, pelvic pain, blood in urine or stool, dysuria, urinary frequency or urgency, lightheadedness, dizziness, headache, memory loss, loss of consciousness, rash, abnormal bruising or bleeding, imbalance, focal weakness, numbness or tingling in arms or legs, generalized a rthralgias or myalgias, back or neck pain, or night sweats. The review of systems is otherwise negative other than for that already noted above, and at least 10 systems have been reviewed. Physical Exam Physical Exam: The patient is awake, alert and oriented 3, well developed and well nourished, normocephalic and atraumatic, lying in bed and in no acute distress. HEENT--PERRL, EOMI, mucous membranes and oropharynx mildly dry. Neck--supple. No JVD. No bruits. Thyroid normal, trachea midline, no adenopathy. Heart--normal S1 and S2. No murmurs, rubs or gallops. Lungs--clear bilaterally, no respiratory distress, no accessory muscle use. Abdomen--normal bowel sounds and soft. Nontender. Nondistended, no hernias or masses, no organomegaly. Extremities--no cyanosis or clubbing. No edema. Dermatologic--skin is mildly dry Neurologic--cranial nerves II through XII grossly intact. Rheumatologic--normal range of motion. Psychiatric--normal affect. Results & Data Results & Data Vital Signs (Past 12 Hours) Vital Signs Temp Pulse Pulse Resp BP BP Pulse Ox 11/28/24 02:42 36.7 C 61 18 132/72 92 11/28/24 02:08 36.6 C 64 20 143/72 H 97 11/28/24 02:00 11/28/24 01:31 61 20 142/70 H 94 11/28/24 00:52 64 11/28/24 00:19 65 24 138/72 93 11/27/24 23:20 63 22 153/78 H 95 11/27/24 21:14 95 11/27/24 21:09 95 11/27/24 21:09 88 L 11/27/24 21:01 65 11/27/24 20:53 36.7 C 137 H 20 164/87 H 97 O2 Del Method O2 Flow Rate 11/28/24 02:42 Nasal Cannula 3.0 11/28/24 02:08 Nasal Cannula 3 11/28/24 02:00 Nasal Cannula 3 11/28/24 01:31 Nasal Cannula 3 11/28/24 00:52 11/28/24 00:19 Nasal Cannula 3 11/27/24 23:20 Nasal Cannula 3 11/27/24 21:14 Nasal Cannula 2 11/27/24 21:09 Room Air, Nasal Cannula 2 11/27/24 21:09 Room Air 11/27/24 21:01 11/27/24 20:53 Room Air Code Status & VTE Plan Code Status Full code VTE Prophylaxis Plan VTE Prophylaxis will be ordered: Yes PG Care Time/CCT Total # of Minutes Spent Total Time Spent with Patient: Total time spent is greater than 50% in coordination of care (as documented) at patient's floor/unit and/or counseling patient: Coding Level of Care Code 58933 INT INP/OBS CARE 3/75MIN Diagnoses Multifocal pneumonia J18.9 COPD exacerbation J44.1 Generalized weakness R53.1 Acute respiratory failure with hypoxia J96.01
[2024-11-28] MEDS: VANCOMYCIN HCL 750 MG in SODIUM CHLORIDE 0.9% 250 ML IV SCH (05:11)
[2024-11-28] MEDS: BUDESONIDE 0.5 MG/2 ML VIAL (PULMICORT) NEB SCH (06:06)
[2024-11-28 06:13] LABS: Basophils # (auto) 0.04 K/uL (0.00-0.20); Basophils % (auto) 0.3 %; Eosinophils # (auto) 0.03 K/uL (0.00-0.50); Eosinophils % (auto) 0.2 %; Hematocrit (blood only) 42.5 % (42.0-52.0); Hemoglobin 14.2 g/dl (14.0-18.0); Immature Granulocytes # (auto) 0.06 K/uL (0.01-0.20); Immature Granulocytes % (auto) 0.4 %; Lymphocytes # (auto) 1.04 K/uL (1.20-3.40); Lymphocytes % (auto) 7.3 %; Mean Corpuscular Hemoglobin 32.4 pg (25.0-34.0); Mean Corpuscular Hgb Conc 33.4 g/dL (32.0-36.0); Mean Platelet Volume 9.2 fL (9.4-12.4); Monocytes # (auto) 0.91 K/uL (0.11-0.59); Monocytes % (auto) 6.4 %; Neutrophils # (auto) 12.17 K/uL (1.40-6.50); Neutrophils % (auto) 85.4 %; Platelet Count 292 K/uL (130-400); RDW Standard Deviation 50.4 fL (36.4-46.3); Red Blood Count 4.38 M/uL (4.70-6.10); White Blood Count 14.25 K/ul (4.8-10.8)
[2024-11-28 06:46] LABS: Albumin Globulin Ratio 1.7 (0.9-2); Albumin Level 3.3 gm/dl (3.4-5.0); BUN Creatinine Ratio 27.7 (10-20); Bilirubin,Total 0.5 mg/dl (0.2-1.0); Calcium 8.1 mg/dl (8.6-10.3); Creatinine Clr Calc Pharmacy 107.2 ml/min; Globulin 1.9 gm/dl (2.5-4.0); Potassium 3.6 mmol/L (3.5-5.1); Total Protein 5.2 gm/dl (6.0-8.3)
[2024-11-28] MEDS: ACETAMINOPHEN 325 MG TAB PO PRN (07:43)
[2024-11-28] MEDS: HEPARIN SOD 5,000 UNIT/0.5 ML VIAL SQ SCH (08:26)
[2024-11-28] MEDS: FLUTICASONE FUROATE 200MCG 14 PUFFS/INHALER INH SCH (08:26)
[2024-11-28] MEDS: VITAMIN B COMPLEX TAB PO SCH (08:26)
[2024-11-28] MEDS: LORazepam 0.5 MG TAB PO SCH (08:26)
[2024-11-28] MEDS: FLUoxetine HCL 20 MG CAP PO SCH (08:26)
[2024-11-28] MEDS: FERROUS SULFATE 325 MG TAB PO SCH (08:27)
[2024-11-28] MEDS: PROPRANOLOL HCL 20 MG TAB PO SCH (08:27)
[2024-11-28] MEDS: CHOLECALCIFEROL 25 MCG (1000 UNITS) TAB PO SCH (08:27)
[2024-11-28] MEDS: guaiFENesin 600 MG TABCR PO SCH (08:27)
[2024-11-28] MEDS: QUEtiapine FUMARATE 25 MG TABLET PO SCH (08:27)
[2024-11-28] MEDS: PANTOprazole 40 MG/10 ML SYR IV SCH (08:27)
[2024-11-28] MEDS: MULTIVITAMIN TAB PO SCH (08:27)
[2024-11-28] MEDS: UMECLIDINIUM/VILANTEROL 62.5/25MCG 7 PUFFS/INHALER INH SCH (08:28)
[2024-11-28] MEDS: CYANOCOBALAMIN (B-12) 2,500 MCG TABLET PO SCH (08:29)
[2024-11-28] MEDS: CEFEPIME 2000MG 2,000 MG/20 ML SYR IV SCH (08:29)
[2024-11-28] MEDS ORDERED: FLUoxetine HCL 20 MG CAP PO SCH (09:00)
--- NOTE | 2024-11-28 09:28 | Hospitalist Progress Note ---
Date of Service November 28, 2024 Assessment & Plan (1) Multifocal pneumonia: Plan: Vancomycin IV Cefepime 2 g IV every 12 hours Doxycycline 100 mg IV every 12 hours DuoNebs every 2 hours as needed (2) COPD exacerbation: Plan: DuoNebs every 2 hours as needed (3) Generalized weakness: Plan: PT/OT (4) Acute respiratory failure with hypoxia: Plan: -2nd to multifocal PNA Plan The patient is a 69-year-old male with past medical history including COPD, osteoporosis, insomnia, constipation, recurring or tract infection, hypertension, BPH, GERD with esophagitis, anxiety with depression, seasonal allergies and asthma. The patient presents to the emergency department with complaint of worsening shortness of breath, dyspnea on exertion, productive cough over the past few days. Workup in the emergency department included chest x-ray showing significant multifocal pneumonia, in part associated with large left hiatal hernia, and bibasilar infiltrates. He was started on vancomycin, cefepime, doxycycline IV and was then referred for evaluation for admission. He was found to have pulse ox 88% on room air, which improved to 94% with 2 L nasal cannula. He did complain of feeling generally weak, and had decreased oral intake over the past few days as well. Admission and Anticipated Discharge Date Admission Date: November 28, 2024 Subjective No events overnight. Pt is complaining of some SOB this am. Review of Systems Review of Systems: CONST: Negative for fever, body aches and chills. HENT: Negative for neck pain/stiffness, headache, congestion, sore throat, swelling. EYES: Negative for discharge/pain or vision changes. RESP: Negative for cough/hemoptysis and shortness of breath. CV: Negative chest pain, difficulty breathing, palpitations. ABD: Negative pain, nausea, vomiting. : Negative increase frequency, dysuria, blood in urine or stool. MUSC: Negative for muscle aches, edema. SKIN: Negative rash, lesions/sores. NEURO: Negative headache, dizziness, weakness. Physical Exam Physical Exam: GENERAL APPEARANCE NAD, activity normal for age, well developed/ well nourished, no cyanosis, pallor, or diaphoresis. EYES lids/conjunctiva normal. EARS/NOSE/THROAT Mucous membranes moist, nares normal, lips/teeth normal uvula midline without oral pharyngeal erythema, exudate or swelling TMs normal bilaterally. No lymphangitis/lymphedema. HEAD/NECK normocephalic atraumatic, no facial trauma, neck is supple. RESPIRATORY respiratory effort normal, speaks in full sentences, no tripod position, no accessory muscle use. Lungs clear to auscultation without rhonchi, wheezes, rales CARDIAC Regular rate and rhythm, no edema. ABDOMINAL Soft, ND/NT. No evidence of fluid wave. No pulsatile masses on exam, rebound tenderness, Meadows sign or pain over Mcburney's point. MUSCLES/EXTREMITIES No abnormal range of motion, no swelling. SKIN Warm, pink and dry. No rashes, dermatoses, petechiae or lesions. NEUROLOGICAL Speech is clear and appropriate. Normal level of consciousness. Gait and coordination are normal. 5/5 strength in all extremities. PSYCH Normal mood and affect. Judgement/competence is appropriate Results & Data Results & Data Vital Signs (Past 12 Hours) Vital Signs Temp Pulse Pulse Resp BP BP Pulse Ox 11/28/24 07:57 36.4 C L 78 18 131/79 91 11/28/24 06:06 62 16 98 11/28/24 02:42 36.7 C 61 18 132/72 92 11/28/24 02:15 61 11/28/24 02:15 36.7 C 61 18 132/72 92 11/28/24 02:15 36.7 C 61 16 132/72 92 11/28/24 02:15 11/28/24 02:08 36.6 C 64 20 143/72 H 97 11/28/24 02:00 11/28/24 01:31 61 20 142/70 H 94 11/28/24 00:52 64 11/28/24 00:19 65 24 138/72 93 11/27/24 23:20 63 22 153/78 H 95 Pulse Ox O2 Del Method O2 Del Method O2 Flow Rate O2 Flow Rate 11/28/24 07:57 Nasal Cannula 2 11/28/24 06:06 Nasal Cannula 3 11/28/24 02:42 Nasal Cannula 3.0 11/28/24 02:15 11/28/24 02:15 Nasal Cannula 3 11/28/24 02:15 Nasal Cannula 3 11/28/24 02:15 92 Nasal Cannula 3 11/28/24 02:08 Nasal Cannula 3 11/28/24 02:00 Nasal Cannula 3 11/28/24 01:31 Nasal Cannula 3 11/28/24 00:52 11/28/24 00:19 Nasal Cannula 3 11/27/24 23:20 Nasal Cannula 3 PG Care Time/CCT Total # of Minutes Spent Total Time Spent with Patient: Total time spent is greater than 50% in coordination of care (as documented) at patient's floor/unit and/or counseling patient: Coding Level of Care Code 39924 SUB INP/OBS CARE 2/35MIN Diagnoses Multifocal pneumonia J18.9 COPD exacerbation J44.1 Generalized weakness R53.1 Acute respiratory failure with hypoxia J96.01
[2024-11-28] MEDS: DOXYCYCLINE HYCLATE 100 MG in DEXTROSE 5% MINI-B 100 ML IV SCH (12:30)
--- NOTE | 2024-11-28 13:03 | Electrocardiogram Report ---
Test Reason : Blood Pressure : */* mmHG Vent. Rate : 63 BPM Atrial Rate : 63 BPM P-R Int : 190 ms QRS Dur : 84 ms QT Int : 392 ms P-R-T Axes : 52 9 66 degrees QTcB Int : 401 ms Normal sinus rhythm Confirmed by Sebastian Leal ([id number]) on 11/28/2024 1:03:21 PM Referred By: REFERRED SELF Confirmed By: Sebastian Leal
[2024-11-28] MEDS: traZODone HCL 100 MG TAB PO SCH (20:13)
[2024-11-29 06:26] LABS: Basophils # (auto) 0.02 K/uL (0.00-0.20); Basophils % (auto) 0.2 %; Eosinophils # (auto) 0.01 K/uL (0.00-0.50); Eosinophils % (auto) 0.1 %; Hematocrit (blood only) 35.9 % (42.0-52.0); Hemoglobin 12.1 g/dl (14.0-18.0); Immature Granulocytes # (auto) 0.07 K/uL (0.01-0.20); Immature Granulocytes % (auto) 0.5 %; Lymphocytes # (auto) 0.89 K/uL (1.20-3.40); Lymphocytes % (auto) 6.9 %; Mean Corpuscular Hemoglobin 32.4 pg (25.0-34.0); Mean Corpuscular Hgb Conc 33.7 g/dL (32.0-36.0); Mean Platelet Volume 9.3 fL (9.4-12.4); Monocytes # (auto) 0.97 K/uL (0.11-0.59); Monocytes % (auto) 7.5 %; Neutrophils # (auto) 10.98 K/uL (1.40-6.50); Neutrophils % (auto) 84.8 %; Platelet Count 233 K/uL (130-400); RDW Coefficient of Variation 13.9 % (11.5-14.5); RDW Standard Deviation 49.3 fL (36.4-46.3); Red Blood Count 3.74 M/uL (4.70-6.10); White Blood Count 12.94 K/ul (4.8-10.8)
[2024-11-29 06:57] LABS: Albumin Globulin Ratio 1.6 (0.9-2); Albumin Level 2.9 gm/dl (3.4-5.0); BUN Creatinine Ratio 25.5 (10-20); Bilirubin,Total 0.6 mg/dl (0.2-1.0); Calcium 7.9 mg/dl (8.6-10.3); Creatinine Clr Calc Pharmacy 107.4 ml/min; Globulin 1.8 gm/dl (2.5-4.0); Magnesium 1.6 mg/dl (1.7-2.4); Potassium 3.2 mmol/L (3.5-5.1); Total Protein 4.7 gm/dl (6.0-8.3)
--- NOTE | 2024-11-29 09:35 | Hospitalist Progress Note ---
Date of Service November 29, 2024 Assessment & Plan (1) Multifocal pneumonia: Plan: Vancomycin IV Cefepime 2 g IV every 12 hours Doxycycline 100 mg IV every 12 hours DuoNebs every 2 hours as needed (2) COPD exacerbation: Plan: DuoNebs every 2 hours as needed (3) Generalized weakness: Plan: PT/OT (4) Acute respiratory failure with hypoxia: Plan: -2nd to multifocal PNA Plan The patient is a 69-year-old male with past medical history including COPD, osteoporosis, insomnia, constipation, recurring or tract infection, hypertension, BPH, GERD with esophagitis, anxiety with depression, seasonal allergies and asthma. The patient presents to the emergency department with complaint of worsening shortness of breath, dyspnea on exertion, productive cough over the past few days. Workup in the emergency department included chest x-ray showing significant multifocal pneumonia, in part associated with large left hiatal hernia, and bibasilar infiltrates. He was started on vancomycin, cefepime, doxycycline IV and was then referred for evaluation for admission. He was found to have pulse ox 88% on room air, which improved to 94% with 2 L nasal cannula. He did complain of feeling generally weak, and had decreased oral intake over the past few days as well. Admission and Anticipated Discharge Date Admission Date: November 28, 2024 Subjective No events overnight. Pt is complaining of some SOB this am. Review of Systems Review of Systems: CONST: Negative for fever, body aches and chills. HENT: Negative for neck pain/stiffness, headache, congestion, sore throat, swelling. EYES: Negative for discharge/pain or vision changes. RESP: Negative for cough/hemoptysis and shortness of breath. CV: Negative chest pain, difficulty breathing, palpitations. ABD: Negative pain, nausea, vomiting. : Negative increase frequency, dysuria, blood in urine or stool. MUSC: Negative for muscle aches, edema. SKIN: Negative rash, lesions/sores. NEURO: Negative headache, dizziness, weakness. Physical Exam Physical Exam: GENERAL APPEARANCE NAD, activity normal for age, well developed/ well nourished, no cyanosis, pallor, or diaphoresis. EYES lids/conjunctiva normal. EARS/NOSE/THROAT Mucous membranes moist, nares normal, lips/teeth normal uvula midline without oral pharyngeal erythema, exudate or swelling TMs normal bilaterally. No lymphangitis/lymphedema. HEAD/NECK normocephalic atraumatic, no facial trauma, neck is supple. RESPIRATORY respiratory effort normal, speaks in full sentences, no tripod position, no accessory muscle use. Lungs clear to auscultation without rhonchi, wheezes, rales CARDIAC Regular rate and rhythm, no edema. ABDOMINAL Soft, ND/NT. No evidence of fluid wave. No pulsatile masses on exam, rebound tenderness, Meadows sign or pain over Mcburney's point. MUSCLES/EXTREMITIES No abnormal range of motion, no swelling. SKIN Warm, pink and dry. No rashes, dermatoses, petechiae or lesions. NEUROLOGICAL Speech is clear and appropriate. Normal level of consciousness. Gait and coordination are normal. 5/5 strength in all extremities. PSYCH Normal mood and affect. Judgement/competence is appropriate Results & Data Results & Data Vital Signs (Past 12 Hours) Vital Signs Temp Pulse Pulse Resp BP Pulse Ox Pulse Ox 11/29/24 07:58 36.4 C L 63 18 147/73 H 91 11/29/24 07:51 64 11/29/24 03:10 36.4 C L 67 18 146/73 H 94 11/29/24 02:15 93 11/28/24 23:08 36.6 C 69 17 161/76 H 94 11/28/24 22:58 63 O2 Del Method O2 Del Method O2 Flow Rate O2 Flow Rate 11/29/24 07:58 Oxymask 3 11/29/24 07:51 11/29/24 03:10 Oxymask 2.0 11/29/24 02:15 Oxymask 2 11/28/24 23:08 Oxymask 2.0 11/28/24 22:58 PG Care Time/CCT Total # of Minutes Spent Total Time Spent with Patient: Total time spent is greater than 50% in coordination of care (as documented) at patient's floor/unit and/or counseling patient: Coding Level of Care Code 24868 SUB INP/OBS CARE 2/35MIN Diagnoses Multifocal pneumonia J18.9 COPD exacerbation J44.1 Generalized weakness R53.1 Acute respiratory failure with hypoxia J96.01
[2024-11-29] MEDS: ALBUT/IPRATROP 3MG/0.5MG NEB 3 ML VIAL NEB PRN (12:26)
--- NOTE | 2024-11-29 12:27 | Electrocardiogram Report ---
Test Reason : Blood Pressure : */* mmHG Vent. Rate : 67 BPM Atrial Rate : 67 BPM P-R Int : 176 ms QRS Dur : 80 ms QT Int : 410 ms P-R-T Axes : 22 2 96 degrees QTcB Int : 433 ms Normal sinus rhythm Low voltage QRS Anterior infarct (cited on or before 27-Nov-2024) Abnormal ECG Confirmed by Sebastian Leal ([id number]) on 11/29/2024 12:26:55 PM Referred By: REFERRED SELF Confirmed By: Sebastian Leal
[2024-11-29] MEDS: NICOTINE 14 MG/24 HR PATCH TD SCH (16:47)
[2024-11-30 07:02] LABS: Basophils # (auto) 0.02 K/uL (0.00-0.20); Basophils % (auto) 0.2 %; Eosinophils # (auto) 0.04 K/uL (0.00-0.50); Eosinophils % (auto) 0.4 %; Hemoglobin 11.2 g/dl (14.0-18.0); Immature Granulocytes # (auto) 0.06 K/uL (0.01-0.20); Immature Granulocytes % (auto) 0.6 %; Lymphocytes # (auto) 0.68 K/uL (1.20-3.40); Lymphocytes % (auto) 6.9 %; Mean Corpuscular Hemoglobin 31.9 pg (25.0-34.0); Mean Corpuscular Hgb Conc 32.9 g/dL (32.0-36.0); Mean Corpuscular Volume 96.9 fL (80.0-100.0); Mean Platelet Volume 9.7 fL (9.4-12.4); Monocytes # (auto) 0.71 K/uL (0.11-0.59); Monocytes % (auto) 7.2 %; Neutrophils # (auto) 8.29 K/uL (1.40-6.50); Neutrophils % (auto) 84.7 %; Platelet Count 206 K/uL (130-400); RDW Coefficient of Variation 13.8 % (11.5-14.5); RDW Standard Deviation 49.2 fL (36.4-46.3); Red Blood Count 3.51 M/uL (4.70-6.10)
[2024-11-30 07:24] LABS: Albumin Globulin Ratio 1.6 (0.9-2); Albumin Level 2.8 gm/dl (3.4-5.0); BUN Creatinine Ratio 26.3 (10-20); Bilirubin,Total 0.5 mg/dl (0.2-1.0); Calcium 7.8 mg/dl (8.6-10.3); Creatinine Clr Calc Pharmacy 132.3 ml/min; Globulin 1.7 gm/dl (2.5-4.0); Magnesium 1.6 mg/dl (1.7-2.4); Potassium 3.1 mmol/L (3.5-5.1); Total Protein 4.5 gm/dl (6.0-8.3)
--- NOTE | 2024-11-30 09:10 | Hospitalist Progress Note ---
Date of Service November 30, 2024 Assessment & Plan (1) Multifocal pneumonia: Plan: Vancomycin IV Cefepime 2 g IV every 12 hours Doxycycline 100 mg IV every 12 hours DuoNebs every 2 hours as needed (2) COPD exacerbation: Plan: DuoNebs every 2 hours as needed (3) Generalized weakness: Plan: PT/OT (4) Acute respiratory failure with hypoxia: Plan: -2nd to multifocal PNA Plan The patient is a 69-year-old male with past medical history including COPD, osteoporosis, insomnia, constipation, recurring or tract infection, hypertension, BPH, GERD with esophagitis, anxiety with depression, seasonal allergies and asthma. The patient presents to the emergency department with complaint of worsening shortness of breath, dyspnea on exertion, productive cough over the past few days. Workup in the emergency department included chest x-ray showing significant multifocal pneumonia, in part associated with large left hiatal hernia, and bibasilar infiltrates. He was started on vancomycin, cefepime, doxycycline IV and was then referred for evaluation for admission. He was found to have pulse ox 88% on room air, which improved to 94% with 2 L nasal cannula. He did complain of feeling generally weak, and had decreased oral intake over the past few days as well. Anticipate D/C home in next 24-48hrs Admission and Anticipated Discharge Date Admission Date: November 28, 2024 Subjective No events overnight. Pt is complaining of some SOB this am. Review of Systems Review of Systems: CONST: Negative for fever, body aches and chills. HENT: Negative for neck pain/stiffness, headache, congestion, sore throat, swelling. EYES: Negative for discharge/pain or vision changes. RESP: Negative for cough/hemoptysis and shortness of breath. CV: Negative chest pain, difficulty breathing, palpitations. ABD: Negative pain, nausea, vomiting. : Negative increase frequency, dysuria, blood in urine or stool. MUSC: Negative for muscle aches, edema. SKIN: Negative rash, lesions/sores. NEURO: Negative headache, dizziness, weakness. Physical Exam Physical Exam: GENERAL APPEARANCE NAD, activity normal for age, well developed/ well nourished, no cyanosis, pallor, or diaphoresis. EYES lids/conjunctiva normal. EARS/NOSE/THROAT Mucous membranes moist, nares normal, lips/teeth normal uvula midline without oral pharyngeal erythema, exudate or swelling TMs normal bilaterally. No lymphangitis/lymphedema. HEAD/NECK normocephalic atraumatic, no facial trauma, neck is supple. RESPIRATORY respiratory effort normal, speaks in full sentences, no tripod position, no accessory muscle use. Lungs clear to auscultation without rhonchi, wheezes, rales CARDIAC Regular rate and rhythm, no edema. ABDOMINAL Soft, ND/NT. No evidence of fluid wave. No pulsatile masses on exam, rebound tenderness, Meadows sign or pain over Mcburney's point. MUSCLES/EXTREMITIES No abnormal range of motion, no swelling. SKIN Warm, pink and dry. No rashes, dermatoses, petechiae or lesions. NEUROLOGICAL Speech is clear and appropriate. Normal level of consciousness. Gait and coordination are normal. 5/5 strength in all extremities. PSYCH Normal mood and affect. Judgement/competence is appropriate Results & Data Results & Data Vital Signs (Past 12 Hours) Vital Signs Temp Pulse Pulse Resp BP Pulse Ox O2 Del Method 11/30/24 07:49 36.6 C 68 22 118/65 95 Nasal Cannula 11/30/24 03:31 36.7 C 61 18 98/54 L 99 Nasal Cannula 11/30/24 00:34 63 11/30/24 00:14 Oxymask 11/29/24 23:26 96/54 L 11/29/24 22:37 36.9 C 64 20 87/45 L 93 Oxymask O2 Flow Rate 11/30/24 07:49 3 11/30/24 03:31 3 11/30/24 00:34 11/30/24 00:14 3 11/29/24 23:26 11/29/24 22:37 PG Care Time/CCT Total # of Minutes Spent Total Time Spent with Patient: Total time spent is greater than 50% in coordination of care (as documented) at patient's floor/unit and/or counseling patient: Coding Level of Care Code 94249 SUB INP/OBS CARE 2/35MIN Diagnoses Multifocal pneumonia J18.9 COPD exacerbation J44.1 Generalized weakness R53.1 Acute respiratory failure with hypoxia J96.01
[2024-11-30] MEDS: LOPERAMIDE HCL 2 MG CAP PO PRN (16:35)
[2024-11-30] MEDS: MELATONIN 3 MG TAB PO PRN (20:57)
[2024-12-01 07:54] LABS: Creatinine Clr Calc Pharmacy 123.1 ml/min; Magnesium 1.5 mg/dl (1.7-2.4)
--- NOTE | 2024-12-01 08:30 | XRay Report ---
XR chest 1V portable CLINICAL HISTORY: Pneumonia. COMPARISON STUDY: Chest radiograph and chest CT November 27, 2024. FINDINGS: Extensive left lung consolidation has slightly progressed. Right lower lung airspace opacit y has also mildly progressed. There is left lung volume loss, slightly increased. Small left pleural effusion is present. There is no pneumothorax. There is no evidence for pulmonary edema. There is und erlying emphysema. IMPRESSION: 1. Progression of extensive left lung pneumonia. Increase in right basilar airspace opacity which is also infectious. 2. Mild increase in left lung volume loss. 3. Small left pleural effusion. 4. Emphysema. ACT 112: Negative or not required by law. Electronically signed by: Johnie Jacobo M.D. 12/01/2024 8:29 AM
[2024-12-01] MEDS: PANTOprazole 40 MG TAB PO SCH (08:41)
[2024-12-01] MEDS: POTASSIUM CHLORIDE / WTR 10 MEQ/100 ML PLCT IV SCH (08:45)
--- NOTE | 2024-12-01 10:52 | Hospitalist Progress Note ---
Date of Service December 01, 2024 Assessment & Plan (1) Multifocal pneumonia: Plan: Vancomycin IV Cefepime 2 g IV every 12 hours Doxycycline 100 mg IV every 12 hours DuoNebs every 2 hours as needed CXR 12/01 shows worsening PNA Con't abx, nebs Requiring supplemental 02 (2) COPD exacerbation: Plan: DuoNebs every 2 hours as needed (3) Generalized weakness: Plan: PT/OT (4) Acute respiratory failure with hypoxia: Plan: -2nd to multifocal PNA Plan The patient is a 69-year-old male with past medical history including COPD, osteoporosis, insomnia, constipation, recurring or tract infection, hypertension, BPH, GERD with esophagitis, anxiety with depression, seasonal allergies and asthma. The patient presents to the emergency department with complaint of worsening shortness of breath, dyspnea on exertion, productive cough over the past few days. Workup in the emergency department included chest x-ray showing significant multifocal pneumonia, in part associated with large left hiatal hernia, and bibasilar infiltrates. He was started on vancomycin, cefepime, doxycycline IV and was then referred for evaluation for admission. He was found to have pulse ox 88% on room air, which improved to 94% with 2 L nasal cannula. He did complain of feeling generally weak, and had decreased oral intake over the past few days as well. Anticipate D/C home in next 24-48hrs Admission and Anticipated Discharge Date Admission Date: November 28, 2024 Subjective No events overnight. Review of Systems Review of Systems: CONST: Negative for fever, body aches and chills. HENT: Negative for neck pain/stiffness, headache, congestion, sore throat, swelling. EYES: Negative for discharge/pain or vision changes. RESP: Negative for cough/hemoptysis and shortness of breath. CV: Negative chest pain, difficulty breathing, palpitations. ABD: Negative pain, nausea, vomiting. : Negative increase frequency, dysuria, blood in urine or stool. MUSC: Negative for muscle aches, edema. SKIN: Negative rash, lesions/sores. NEURO: Negative headache, dizziness, weakness. Physical Exam Physical Exam: GENERAL APPEARANCE NAD, activity normal for age, well developed/ well nourished, no cyanosis, pallor, or diaphoresis. EYES lids/conjunctiva normal. EARS/NOSE/THROAT Mucous membranes moist, nares normal, lips/teeth normal uvula midline without oral pharyngeal erythema, exudate or swelling TMs normal bilaterally. No lymphangitis/lymphedema. HEAD/NECK normocephalic atraumatic, no facial trauma, neck is supple. RESPIRATORY respiratory effort normal, speaks in full sentences, no tripod position, no accessory muscle use. Lungs clear to auscultation without rhonchi, wheezes, rales CARDIAC Regular rate and rhythm, no edema. ABDOMINAL Soft, ND/NT. No evidence of fluid wave. No pulsatile masses on exam, rebound tenderness, Meadows sign or pain over Mcburney's point. MUSCLES/EXTREMITIES No abnormal range of motion, no swelling. SKIN Warm, pink and dry. No rashes, dermatoses, petechiae or lesions. NEUROLOGICAL Speech is clear and appropriate. Normal level of consciousness. Gait and coordination are normal. 5/5 strength in all extremities. PSYCH Normal mood and affect. Judgement/competence is appropriate Results & Data Results & Data Vital Signs (Past 12 Hours) Vital Signs Temp Pulse Pulse Resp BP Pulse Ox O2 Del Method 12/01/24 08:00 Nasal Cannula 12/01/24 07:57 36.7 C 63 20 117/78 96 Nasal Cannula 12/01/24 07:00 59 L 12/01/24 03:29 36.8 C 60 18 106/58 L 95 Oxymask 11/30/24 23:02 36.5 C 63 18 100/61 96 Oxymask O2 Flow Rate 12/01/24 08:00 4 12/01/24 07:57 6 12/01/24 07:00 12/01/24 03:29 6 11/30/24 23:02 3 PG Care Time/CCT Total # of Minutes Spent Total Time Spent with Patient: Total time spent is greater than 50% in coordination of care (as documented) at patient's floor/unit and/or counseling patient: Coding Level of Care Code 27078 SUB INP/OBS CARE 2/35MIN Diagnoses Multifocal pneumonia J18.9 COPD exacerbation J44.1 Generalized weakness R53.1 Acute respiratory failure with hypoxia J96.01
[2024-12-02 10:27] LABS: BUN Creatinine Ratio 18.2 (10-20); Calcium 7.8 mg/dl (8.6-10.3); Creatinine Clr Calc Pharmacy 114.2 ml/min; Potassium 2.8 mmol/L (3.5-5.1)
--- NOTE | 2024-12-02 11:27 | Hospitalist Progress Note ---
Date of Service December 02, 2024 Assessment & Plan (1) Multifocal pneumonia: Plan: Vancomycin IV Cefepime 2 g IV every 12 hours Doxycycline 100 mg IV every 12 hours DuoNebs every 2 hours as needed CXR 12/01 shows worsening PNA Con't abx, nebs Requiring supplemental 02 (2) COPD exacerbation: Plan: DuoNebs every 2 hours as needed (3) Generalized weakness: Plan: PT/OT (4) Acute respiratory failure with hypoxia: Plan: -2nd to multifocal PNA Plan The patient is a 69-year-old male with past medical history including COPD, osteoporosis, insomnia, constipation, recurring or tract infection, hypertension, BPH, GERD with esophagitis, anxiety with depression, seasonal allergies and asthma. The patient presents to the emergency department with complaint of worsening shortness of breath, dyspnea on exertion, productive cough over the past few days. Workup in the emergency department included chest x-ray showing significant multifocal pneumonia, in part associated with large left hiatal hernia, and bibasilar infiltrates. He was started on vancomycin, cefepime, doxycycline IV and was then referred for evaluation for admission. He was found to have pulse ox 88% on room air, which improved to 94% with 2 L nasal cannula. He did complain of feeling generally weak, and had decreased oral intake over the past few days as well. Anticipate D/C home in next 24-48hrs Admission and Anticipated Discharge Date Admission Date: November 28, 2024 Subjective No events overnight. Pt resting in bed, still on 02. Review of Systems Review of Systems: CONST: Negative for fever, body aches and chills. HENT: Negative for neck pain/stiffness, headache, congestion, sore throat, swelling. EYES: Negative for discharge/pain or vision changes. RESP: Negative for cough/hemoptysis and shortness of breath. CV: Negative chest pain, difficulty breathing, palpitations. ABD: Negative pain, nausea, vomiting. : Negative increase frequency, dysuria, blood in urine or stool. MUSC: Negative for muscle aches, edema. SKIN: Negative rash, lesions/sores. NEURO: Negative headache, dizziness, weakness. Physical Exam Physical Exam: GENERAL APPEARANCE NAD, activity normal for age, well developed/ well nourished, no cyanosis, pallor, or diaphoresis. EYES lids/conjunctiva normal. EARS/NOSE/THROAT Mucous membranes moist, nares normal, lips/teeth normal uvula midline without oral pharyngeal erythema, exudate or swelling TMs normal bilaterally. No lymphangitis/lymphedema. HEAD/NECK normocephalic atraumatic, no facial trauma, neck is supple. RESPIRATORY respiratory effort normal, speaks in full sentences, no tripod position, no accessory muscle use. Lungs clear to auscultation without rhonchi, wheezes, rales CARDIAC Regular rate and rhythm, no edema. ABDOMINAL Soft, ND/NT. No evidence of fluid wave. No pulsatile masses on exam, rebound tenderness, Meadows sign or pain over Mcburney's point. MUSCLES/EXTREMITIES No abnormal range of motion, no swelling. SKIN Warm, pink and dry. No rashes, dermatoses, petechiae or lesions. NEUROLOGICAL Speech is clear and appropriate. Normal level of consciousness. Gait and coordination are normal. 5/5 strength in all extremities. PSYCH Normal mood and affect. Judgement/competence is appropriate Results & Data Results & Data Vital Signs (Past 12 Hours) Vital Signs Temp Pulse Resp BP Pulse Ox O2 Del Method O2 Flow Rate 12/02/24 07:49 36.8 C 61 20 111/59 L 100 Nasal Cannula 4 12/02/24 03:00 36.6 C 62 17 105/51 L 96 Nasal Cannula 4 PG Care Time/CCT Total # of Minutes Spent Total Time Spent with Patient: Total time spent is greater than 50% in coordination of care (as documented) at patient's floor/unit and/or counseling patient: Coding Level of Care Code 05944 SUB INP/OBS CARE 2/35MIN Diagnoses Multifocal pneumonia J18.9 COPD exacerbation J44.1 Generalized weakness R53.1 Acute respiratory failure with hypoxia J96.01
[2024-12-02] MEDS: POTASSIUM CHLORIDE / WTR 10 MEQ/100 ML PLCT IV SCH (11:57)
[2024-12-02] MEDS: DOXYCYCLINE HYCLATE 100 MG CAP PO SCH (20:03)
[2024-12-03 06:22] LABS: Hematocrit (blood only) 33.5 % (42.0-52.0); Hemoglobin 11.3 g/dl (14.0-18.0); Mean Corpuscular Hemoglobin 32.4 pg (25.0-34.0); Mean Corpuscular Hgb Conc 33.7 g/dL (32.0-36.0); Mean Platelet Volume 9.6 fL (9.4-12.4); Platelet Count 210 K/uL (130-400); RDW Coefficient of Variation 13.2 % (11.5-14.5); RDW Standard Deviation 46.8 fL (36.4-46.3); Red Blood Count 3.49 M/uL (4.70-6.10); White Blood Count 8.93 K/ul (4.8-10.8)
[2024-12-03 06:34] LABS: BUN Creatinine Ratio 16.3 (10-20); Calcium 7.8 mg/dl (8.6-10.3); Creatinine Clr Calc Pharmacy 116.5 ml/min
[2024-12-03] MEDS: MAGNESIUM SULFATE / D5W 1 GM/100 ML BAG IV SCH (07:24)
[2024-12-03] MEDS: POTASSIUM CHLORIDE / WTR 10 MEQ/100 ML PLCT IV SCH (07:24)
[2024-12-03] MEDS ORDERED: POTASSIUM CHLORIDE / WTR 10 MEQ/100 ML PLCT IV SCH (07:45)
[2024-12-03] MEDS: POTASSIUM CHLORIDE PWD 20 MEQ PACK PO SCH (08:54)
--- NOTE | 2024-12-03 10:02 | Hospitalist Progress Note ---
Date of Service December 03, 2024 Assessment & Plan (1) Multifocal pneumonia: Plan: Vancomycin IV Cefepime 2 g IV every 12 hours Doxycycline 100 mg IV every 12 hours DuoNebs every 2 hours as needed CXR 12/01 shows worsening PNA Con't abx, nebs Requiring supplemental 02 Con't to titrate 02 (2) COPD exacerbation: Plan: DuoNebs every 2 hours as needed (3) Generalized weakness: Plan: PT/OT (4) Acute respiratory failure with hypoxia: Plan: -2nd to multifocal PNA Plan The patient is a 69-year-old male with past medical history including COPD, osteoporosis, insomnia, constipation, recurring or tract infection, hy pertension, BPH, GERD with esophagitis, anxiety with depression, seasonal allergies and asthma. The patient presents to the emergency department with complaint of worsening shortness of breath, dyspnea on exertion, productive cough over the past few days. Workup in the emergency department included chest x-ray showing significant multifocal pneumonia, in part associated with large left hiatal hernia, and bibasilar infiltrates. He was started on vancomycin, cefepime, doxycycline IV and was then referred for evaluation for admission. He was found to have pulse ox 88% on room air, which improved to 94% with 2 L nasal cannula. He did complain of feeling generally weak, and had decreased oral intake over the past few days as well. Anticipate D/C home Tuesday 12/05 Admission and Anticipated Discharge Date Admission Date: November 28, 2024 Subjective No events overnight. Pt having episodes of diarrhea, with h/o of chronic diarrhea. Is now on 2LNC. Review of Systems Review of Systems: CONST: Negative for fever, body aches and chills. HENT: Negative for neck pain/stiffness, headache, congestion, sore throat, swelling. EYES: Negative for discharge/pain or vision changes. RESP: Negative for cough/hemoptysis and shortness of breath. CV: Negative chest pain, difficulty breathing, palpitations. ABD: Negative pain, nausea, vomiting. : Negative increase frequency, dysuria, blood in urine or stool. MUSC: Negative for muscle aches, edema. SKIN: Negative rash, lesions/sores. NEURO: Negative headache, dizziness, weakness. Physical Exam Physical Exam: GENERAL APPEARANCE NAD, activity normal for age, well developed/ well nourished, no cyanosis, pallor, or diaphoresis. EYES lids/conjunctiva normal. EARS/NOSE/THROAT Mucous membranes moist, nares normal, lips/teeth normal uvula midline without oral pharyngeal erythema, exudate or swelling TMs normal bilaterally. No lymphangitis/lymphedema. HEAD/NECK normocephalic atraumatic, no facial trauma, neck is supple. RESPIRATORY respiratory effort normal, speaks in full sentences, no tripod position, no accessory muscle use. Lungs clear to auscultation without rhonchi, wheezes, rales CARDIAC Regular rate and rhythm, no edema. ABDOMINAL Soft, ND/NT. No evidence of fluid wave. No pulsatile masses on exam, rebound tenderness, Meadows sign or pain over Mcburney's point. MUSCLES/EXTREMITIES No abnormal range of motion, no swelling. SKIN Warm, pink and dry. No rashes, dermatoses, petechiae or lesions. NEUROLOGICAL Speech is clear and appropriate. Normal level of consciousness. Gait and coordination are normal. 5/5 strength in all extremities. PSYCH Normal mood and affect. Judgement/competence is appropriate Results & Data Results & Data Vital Signs (Past 12 Hours) Vital Signs Temp Pulse Resp BP Pulse Ox O2 Del Method O2 Flow Rate 12/03/24 09:02 61 18 117/63 99 Nasal Cannula 1 12/03/24 03:33 37.1 C 65 18 126/69 95 Nasal Cannula 3.5 12/03/24 00:38 Nasal Cannula 2 12/02/24 23:16 36.6 C 70 22 143/72 H 95 Nasal Cannula 3.5 PG Care Time/CCT Total # of Minutes Spent Total Time Spent with Patient: Total time spent is greater than 50% in coordination of care (as documented) at patient's floor/unit and/or counseling patient: Coding Level of Care Code 93687 SUB INP/OBS CARE 2/35MIN Diagnoses Multifocal pneumonia J18.9 COPD exacerbation J44.1 Generalized weakness R53.1 Acute respiratory failure with hypoxia J96.01
[2024-12-04 06:23] LABS: Hematocrit (blood only) 33.6 % (42.0-52.0); Hemoglobin 11.3 g/dl (14.0-18.0); Mean Corpuscular Hemoglobin 32.6 pg (25.0-34.0); Mean Corpuscular Hgb Conc 33.6 g/dL (32.0-36.0); Mean Corpuscular Volume 96.8 fL (80.0-100.0); Mean Platelet Volume 9.6 fL (9.4-12.4); Platelet Count 218 K/uL (130-400); RDW Coefficient of Variation 13.4 % (11.5-14.5); RDW Standard Deviation 48.2 fL (36.4-46.3); Red Blood Count 3.47 M/uL (4.70-6.10); White Blood Count 9.71 K/ul (4.8-10.8)
[2024-12-04 06:47] LABS: Calcium 7.8 mg/dl (8.6-10.3); Creatinine Clr Calc Pharmacy 159.8 ml/min; Magnesium 1.9 mg/dl (1.7-2.4); Potassium 3.5 mmol/L (3.5-5.1)
--- NOTE | 2024-12-04 10:42 | Hospitalist Progress Note ---
Date of Service December 04, 2024 Assessment & Plan (1) Multifocal pneumonia: Plan: Cefepime 2 g IV every 12 hours day #7 Doxycycline 100 mg po every 12 hours day #7 DuoNebs every 2 hours as needed CXR 12/01 shows worsening PNA Con't abx, nebs Requiring supplemental 02 Con't to titrate 02 Ordered 2 step, Pt will be ready for d/c home 12/05/24 with or without 02 (2) COPD exacerbation: Plan: DuoNebs every 2 hours as needed (3) Generalized weakness: Plan: PT/OT- recommending d/c home (4) Acute respiratory failure with hypoxia: Plan: -2nd to multifocal PNA Plan The patient is a 69-year-old male with past medical history including COPD, osteoporosis, insomnia, constipation, recurring or tract infection, hypertension, BPH, GERD with esophagitis, anxiety with depression, seasonal allergies and asthma. The patient presents to the emergency department with complaint of worsening shortness of breath, dyspnea on exertion, productive co ugh over the past few days. Workup in the emergency department included chest x-ray showing significant multifocal pneumonia, in part associated with large left hiatal hernia, and bibasilar infiltrates. He was started on vancomycin, cefepime, doxycycline IV and was then referred for evaluation for admission. He was found to have pulse ox 88% on room air, which improved to 94% with 2 L nasal cannula. He did complain of feeling generally weak, and had decreased oral intake over the past few days as well. Anticipate D/C home Tuesday 12/05, on 5 more days of doxycycline and home 02 based on 2-step. Admission and Anticipated Discharge Date Admission Date: November 28, 2024 Subjective No events overnight. Pt having episodes of diarrhea, with h/o of chronic diarrhea. Is now on 2LNC. Review of Systems Review of Systems: CONST: Negative for fever, body aches and chills. HENT: Negative for neck pain/stiffness, headache, congestion, sore throat, swelling. EYES: Negative for discharge/pain or vision changes. RESP: Negative for cough/hemoptysis and shortness of breath. CV: Negative chest pain, difficulty breathing, palpitations. ABD: Negative pain, nausea, vomiting. : Negative increase frequency, dysuria, blood in urine or stool. MUSC: Negative for muscle aches, edema. SKIN: Negative rash, lesions/sores. NEURO: Negative headache, dizziness, weakness. Physical Exam Physical Exam: GENERAL APPEARANCE NAD, activity normal for age, well developed/ well nourished, no cyanosis, pallor, or diaphoresis. EYES lids/conjunctiva normal. EARS/NOSE/THROAT Mucous membranes moist, nares normal, lips/teeth normal uvula midline without oral pharyngeal erythema, exudat e or swelling TMs normal bilaterally. No lymphangitis/lymphedema. HEAD/NECK normocephalic atraumatic, no facial trauma, neck is supple. RESPIRATORY respiratory effort normal, speaks in full sentences, no tripod position, no accessory muscle use. Lungs clear to auscultation without rhonchi, wheezes, rales CARDIAC Regular rate and rhythm, no edema. ABDOMINAL Soft, ND/NT. No evidence of fluid wave. No pulsatile masses on exam, rebound tenderness, Meadows sign or pain over Mcburney's point. MUSCLES/EXTREMITIES No abnormal range of motion, no swelling. SKIN Warm, pink and dry. No rashes, dermatoses, petechiae or lesions. NEUROLOGICAL Speech is clear and appropriate. Normal level of consciousness. Gait and coordination are normal. 5/5 strength in all extremities. PSYCH Normal mood and affect. Judgement/competence is appropriate Results & Data Results & Data Vital Signs (Past 12 Hours) Vital Signs Temp Pulse Pulse Pulse Pulse Pulse Resp 12/04/24 10:35 12/04/24 10:02 78 74 68 64 12/04/24 07:59 36.6 C 64 20 12/04/24 04:29 36.9 C 64 20 Resp Resp Resp Resp BP Pulse Ox Pulse Ox 12/04/24 10:35 12/04/24 10:02 22 20 20 20 86 L 12/04/24 07:59 120/63 94 12/04/24 04:29 117/68 95 Pulse Ox Pulse Ox Pulse Ox O2 Del Method O2 Flow Rate O2 Flow Rate O2 Flow Rate 12/04/24 10:35 Nasal Cannula 2 12/04/24 10:02 90 96 87 L 2 3 12/04/24 07:59 Nasal Cannula 2.0 12/04/24 04:29 Nasal Cannula 2.0 O2 Flow Rate 12/04/24 10:35 12/04/24 10:02 2 12/04/24 07:59 02/23/25 04:29 PG Care Time/CCT Total # of Minutes Spent Total Time Spent with Patient: Total time spent is greater than 50% in coordination of care (as documented) at patient's floor/unit and/or counseling patient: Coding Level of Care Code 08530 SUB INP/OBS CARE 2/35MIN Diagnoses Multifocal pneumonia J18.9 COPD exacerbation J44.1 Generalized weakness R53.1 Acute respiratory failure with hypoxia J96.01
[2024-12-05] MEDS: LIDOCAINE 5% 1 PATCH TD STA (00:01)
[2024-12-05 06:10] LABS: Hematocrit (blood only) 33.3 % (42.0-52.0); Mean Corpuscular Hemoglobin 32.3 pg (25.0-34.0); Mean Corpuscular Volume 97.7 fL (80.0-100.0); Mean Platelet Volume 9.5 fL (9.4-12.4); Platelet Count 221 K/uL (130-400); RDW Coefficient of Variation 13.3 % (11.5-14.5); RDW Standard Deviation 47.4 fL (36.4-46.3); Red Blood Count 3.41 M/uL (4.70-6.10); White Blood Count 7.36 K/ul (4.8-10.8)
[2024-12-05 06:31] LABS: BUN Creatinine Ratio 18.6 (10-20); Calcium 7.7 mg/dl (8.6-10.3); Creatinine Clr Calc Pharmacy 119.9 ml/min; Magnesium 1.8 mg/dl (1.7-2.4); Potassium 3.8 mmol/L (3.5-5.1)
[2024-12-05] MEDS: DOXYCYCLINE HYCLATE 100 MG CAP PO SCH (08:07)
--- NOTE | 2024-12-05 09:51 | XRay Report ---
XR chest 2V PA/lateral CLINICAL HISTORY: f/u pneumonia,hypoxia COMPARISON STUDY: 04/30/[address] of 11/27/2024 FINDINGS: There is elevation of the left hemidiaphragm. There is increased dense consolidation at the left mid and lower lung. There is mild stranding at the right lung base. No pneumothorax. IMPRESSION: Increased pneumonia at the left lower lung. Follow-up to resolution recommended. ACT 112: Negative or not required by law. Electronically signed by: Jeremy Pepe M.D. 12/05/2024 9:49 AM
[2024-12-05] MEDS: KETOROLAC TROMETHAMINE 15 MG/ML VIAL IV PRN (11:53)
--- NOTE | 2024-12-05 13:31 | Hospitalist Progress Note ---
Date of Service December 05, 2024 Assessment & Plan (1) Multifocal pneumonia: (2) Acute respiratory failure with hypoxia: (3) Generalized weakness: Plan The patient is a 69-year-old male with past medical history including intellectual delay, COPD, osteoporosis, insomnia, chronic diarrhea, HTN, BPH, GERD with esophagitis and large hiatal hernia, anxiety/depression, seasonal allergies who p/w worsening SOB, JULIEN, and productive cough for a few days. CXR w/ significant multifocal pneumonia, in part associated with large left hiatal hernia, and bibasilar infiltrates. He was started on vancomycin, cefepime, doxycycline IV and was then referred for evaluation for admission. He was found to have pulse ox 88% on room air, which improved to 94% with 2 L nasal cannula. He did complain of feeling generally weak, and had decreased oral intake as well. #Multifocal PNA/Acute respiratory failure with hypoxia/COPD-CXR with large HH and CTA Chest neg for PE but again with multifocal PNA mostly on left. CXR repeated 12/05 shows worsening left sided opacities. Remains on 2LNC O2 at rest and needs 3LNC with exertion. Has received 7 days of IV Cefepime and 7 days of doxycycline with not much improvement and in fact CXR appears worse. Leukocytosis of 23k on admission is now normal and he is afebrile. Procal normal, BNP elevated, blood cxs negative Resp Biofire neg, MRSA nasal swab neg Speech therapy assessed swallow at bedside and does not note overt aspiration- recommends soft bite sized diet -With pleuritic left sided chest pain now resolved with toradol-continue prn toradol -check sputum cx -continue po doxy for now -consult PULM and see if recommends change in antibiotics -continue supplemental O2 -add hypertonic saline nebs along with scheduled Duonebs bid -consider adding on steroids but no wheezing auscultated -check ECHO -continue maintenance inhalers #GERD/Large Hiatal hernia-continue PPI, reflux precautions #HTN #Anx/Depression-stable -continue propranolol, seroquel, fluoxetine, trazodone, and scheduled lorazepam #Chronic diarrheawith large volume stools and on antibiotics -check C. diff -hold Imodium for now #BPH-no acute issues, not on meds DVT proph-SQ heparin Dispo-continued stay PCU discussed care with sister at bedside on 12/05 Admission and Anticipated Discharge Date Admission Date: November 28, 2024 Subjective Pt continues to cough and sometimes brings up sputum. ALways has a gurgly sounding voice as per sister at bedside. Having significant left sided chest pain in axillary region today much improved with IV toradol. He has large amounts of thick stool but sister reports this is chronic for him-he always takes Imodium daily at home and still has several large stools daily. Tele with SB, NSR rates 60s Physical Exam Constitutional: + thin and + behavioral limitations Respiratory: normal respiratory effort and + cough Auscultation: + crackles (right base); no rhonchi and no wheezes Cardiovascular: Rate/Rhythm: regular rate and regular rhythm Heart Sounds: + murmur (2/6 holosystolic murmur at left lower sternum) Gastrointestinal (Abdomen): normal bowel sounds, soft, nontender, no hepatosplenomegaly Psychiatric: A+Ox3, euthymic affect Results & Data Results & Data Vital Signs (Past 12 Hours) Vital Signs Temp Pulse Pulse Resp BP BP Pulse Ox 12/05/24 12:02 36.7 C 58 L 21 96/48 L 96 12/05/24 11:31 12/05/24 07:58 36.6 C 63 18 112/61 94 12/05/24 06:38 58 L 12/05/24 03:38 36.8 C 58 L 16 109/61 91 O2 Del Method O2 Flow Rate 12/05/24 12:02 Nasal Cannula 3.0 12/05/24 11:31 Nasal Cannula 3 12/05/24 07:58 Nasal Cannula 2 12/05/24 06:38 12/05/24 03:38 Nasal Cannula 2 Laboratory Results CBC, BMP, magnesium, troponin, procal reviewed Diagnostic Findings CXR reviewed PG Care Time/CCT Total # of Minutes Spent Total Time Spent with Patient: Total time spent is greater than 50% in coordination of care (as documented) at patient's floor/unit and/or counseling patient: Coding Level of Care Code 12300 SUB INP/OBS CARE 3/50MIN Diagnoses Multifocal pneumonia J18.9 Acute respiratory failure with hypoxia J96.01 Generalized weakness R53.1
--- NOTE | 2024-12-05 15:17 | Pulmonary Consultation ---
Date of Consultation December 05, 2024 Assessment & Plan (1) Acute respiratory failure with hypoxia: (2) Multifocal pneumonia: (3) COPD (chronic obstructive pulmonary disease): (4) Elevated diaphragm: Plan CT chest 11/27/2024 personally reviewed: Multifocal opacities appreciated in the left lung Atelectasis of the left lower lobe Elevated left hemidiaphragm No significant mediastinal lymphadenopathy --Acute hypoxic respiratory failure Secondary to multifocal pneumonia Procalcitonin 0.03 Respiratory BioFire negative for everything on 11/27/2024, nasal MRSA negative --Elevated left hemidiaphragm Chronic Etiology is not clear --COPD [id number] smoking history quit around the age of 45 On Trelegy 200 at home seem to be in acute exacerbation -- Mentally challenged --History of complication post colonoscopy, patient requiring intubation for almost 2 weeks Plan: Continue with pulmonary toileting Will benefit from a swallow eval Change inhalers and nebulizers while hospitalized Recommend patient to be sleeping/lying on the right side rather than left No plan for bronchoscopy right now Case was discussed with patient's sister who was at bedside Please note the above document was generated using voice recognition software. It may contain grammatical, syntax or spelling errors.Any formal questions or concerns about the content, text or information contained within the body of this dictation should be directly addressed to the provider for clarification. History of Present Illness Attending Physician: Laquita Patten MD History of Present Illness 69-year-old male was admitted to the hospital because of shortness of breath Past medical history: Mentally challenged, anxiety/depression, GERD Pulmonary consulted for multilobar pneumonia At the time of examination patient was saturating 97-98% on 3 L nasal cannula, I went down to 2 L Patient sister was in the room to help with history as well as interrogation He stated he is feeling better compared to when he came to the hospital He still complains of chest congestion and occasional difficulty bringing up the phlegm Denies any hemoptysis He does complain of difficulty swallowing on and off more pronounced when he is having liquids. Denies any unusual headache or blurry vision No diarrhea or dysuria prior to coming to the hospital Social history: Approximately [id number]-axdn smoking history, quit around the age of 45 Pets: Dog, no birds or poultry nearby Allergies Allergy/AdvReac Type Severity Reaction Status Date / Time diazepam AdvReac Intermediate OPPOSITE Verified 11/16/24 13:28 EFFECT Home Medications Medication Instructions Recorded Confirmed Type acetaminophen 325 mg tablet 650 mg PO QID PRN Pain 06/02/22 11/27/24 History (Tylenol) ferrous sulfate 325 mg (65 mg 325 mg PO DAILY 06/02/22 11/27/24 History iron) tablet (FeroSul) mecobalamin (vitamin B12) 5,000 5,000 mcg PO DAILY 06/02/22 11/27/24 History mcg disintegrating tablet multivitamin 1 tab PO DAILY 06/02/22 11/27/24 History vitamin B complex 1 cap PO DAILY 06/02/22 11/27/24 History nebulizer accessories #1 ea 10/30/23 11/27/24 Rx nebulizer and compressor #1 ea 10/30/23 11/27/24 Rx cholecalciferol (vitamin D3) 50 50 mcg PO DAILY 04/07/24 11/27/24 History mcg (2,000 unit) capsule (Vitamin D3) omeprazole 40 mg capsule,delayed 40 mg PO DAILY #90 caps 05/17/24 11/27/24 Rx release fluoxetine 20 mg capsule 20 mg PO DAILY #90 caps 06/16/24 11/27/24 Rx fluoxetine 40 mg capsule 40 mg PO DAILY #90 caps 06/16/24 11/27/24 Rx quetiapine 50 mg tablet 50 mg PO BID #180 tabs 06/16/24 11/27/24 Rx trazodone 100 mg tablet 100 mg PO HS #90 tabs 07/13/24 11/27/24 Rx fluticasone fur. 200 mcg-umeclid 1 inh inhalation Q24H #60 ea 09/15/24 11/27/24 Rx 62.5 mcg-vilant 25 mcg inhalat.powder (Trelegy Ellipta) propranolol 40 mg tablet 40 mg PO BID 90 days #180 tabs 10/06/24 11/27/24 Rx lorazepam 0.5 mg tablet 0.5 mg PO TID anxiety #90 tabs 10/17/24 11/27/24 Rx loperamide 2 mg capsule (Imodium 2 mg PO DAILY PRN loose stool #120 10/18/24 11/27/24 Rx A-D) caps BD GINO 2 GEN PEN NDL 32G 4MM #360 ea 11/24/24 11/27/24 Rx teriparatide 20 mcg/dose (600 20 mcg (0.08 mL) subcut DAILY #2.4 11/24/24 11/27/24 Rx mcg/2.4 mL) subcutaneous pen mL injector melatonin 3 mg tablet 6 mg PO HS PRN Pain 11/27/24 11/27/24 History Patient History Medical History (Updated 12/06/24 @ 08:12 by Cira Randall MD, [facility]) Hx of compression fracture of spine L1 and L2 Fracture Risk Assessment Score (FRAX) indicating greater than 3% risk for hip fracture Fracture Risk Assessment Score (FRAX) indicating greater than 20% risk for major osteoporosis-related fracture Rib pain on left side Weight loss Acute UTI Chronic diarrhea Fecal incontinence Agitation Intellectual disability Otomycosis Sensorineural hearing loss (SNHL) of both ears Chronic rhinitis Chronic sinusitis Excessive cerumen in both ear canals Recurrent falls Surgical History History of sinus surgery History of tooth extraction History of cataract extraction with lens replacement History of clubfoot correction History of hernia repair Family History (Updated 08/11/24 @ 14:49 by FELIPE Cochran) Mother Hearing loss Father Hypertension Cancer Prostate cancer Rheumatoid arthritis Aunt Stroke Grandfather (Maternal) Stomach cancer Other No family history of adverse response to anesthesia No family history of bleeding disorder Denies family history of Ovarian cancer Diabetes Myocardial infarction Breast cancer Lung cancer Colorectal cancer Social History (Updated 10/18/24 @ 14:17 by SHANNAN Blackburn) Smoking Status: Current every day smoker Tobacco Type: Smokeless Tobacco (Dip or Chew) Age Started Using Tobacco: 18; Age Quit Using Tobacco: 28; packs per day: 0; Second Hand Exposure: No; Do You Dip or Chew Tobacco: Yes; Hx Alcohol Use: No Hx Substance Use: No Preferred Language: Nicaraguan Communication Ability: Effective Visual Impairment: Limited Hearing Ability: Use of Hearing Aid Beliefs That Will Affect Care: None marital status: Single Current Living Situation: Alone current occupational status: disabled Feels Safe at Home: Yes Childhood Exposure to Second-Hand Smoke: No caffeine: Yes Dental Care, Regularly: No Physical Activity Frequency: Does not Exercise Seatbelt Use: always Sunscreen Use: Yes Assistive Devices: Cane and Nebulizer Review of Systems 2 Review of Systems: All systems reviewed & are unremarkable except as noted in HPI & below Physical Exam 2 Physical Exam: Constitutional: No acute distress HEENT: EOMI, PERRLA Respiratory system: Decreased air entry on the left side, no wheeze, no rhonchi, positive crackles bilaterally more on the left side CVS: S1-S2 positive, positive 3 out of 6 systolic murmur appreciated best in the left parasternal region Abdomen: Soft, nontender, nondistended, positive bowel sounds x4 Extremities: +2 pulses bilaterally radialis/ dorsalis pedis, no cyanosis, minimal dependent edema bilateral lower extremity Neuro: Awake alert oriented x3 Psych: Normal mood and affect G/U: No Armando Skin: no rashes, warm and dry Lymphatic: no cervical or axillary lymphadenopathy Results & Data Results & Data Vital Signs (Past 12 Hours) Vital Signs Temp Pulse Pulse Resp BP BP Pulse Ox 12/05/24 12:02 36.7 C 58 L 21 96/48 L 96 12/05/24 11:31 12/05/24 07:58 36.6 C 63 18 112/61 94 12/05/24 06:38 58 L 12/05/24 03:38 36.8 C 58 L 16 109/61 91 O2 Del Method O2 Flow Rate 12/05/24 12:02 Nasal Cannula 3.0 12/05/24 11:31 Nasal Cannula 3 12/05/24 07:58 Nasal Cannula 2 12/05/24 06:38 12/05/24 03:38 Nasal Cannula 2 Laboratory Results 12/05/24 05:44 12/05/24 05:44 PG Care Time/CCT Total # of Minutes Spent Total Time Spent with Patient: Total time spent is greater than 50% in coordination of care (as documented) at patient's floor/unit and/or counseling patient: Coding Level of Care Code 44709 INT INP/OBS CARE 3/75MIN Diagnoses Acute respiratory failure with hypoxia J96.01 Multifocal pneumonia J18.9 COPD (chronic obstructive pulmonary disease) J44.9 Elevated diaphragm J98.6
[2024-12-05] MEDS: ALBUT/IPRATROP 3MG/0.5MG NEB 3 ML VIAL NEB SCH (15:24)
[2024-12-05] MEDS: SODIUM CHLOR 7% 4 ML NEB NEB SCH (15:25)
--- NOTE | 2024-12-05 15:43 | Electrocardiogram Report ---
Test Reason : Blood Pressure : */* mmHG Vent. Rate : 58 BPM Atrial Rate : 58 BPM P-R Int : 176 ms QRS Dur : 84 ms QT Int : 406 ms P-R-T Axes : -1 34 79 degrees QTcB Int : 398 ms Sinus bradycardia Low voltage QRS Cannot rule out Anterior infarct (cited on or before 27-Nov-2024) Abnormal ECG When compared with ECG of 28-Nov-2024 07:33, No significant change was found Confirmed by Shan Guillen ([id number]) on 12/05/2024 3:43:12 PM Referred By: REFERRED SELF Confirmed By: Shan Guillen
--- NOTE | 2024-12-05 16:07 | XCELERA ---
[id number]
[2024-12-06 07:02] LABS: Hematocrit (blood only) 34.2 % (42.0-52.0); Hemoglobin 11.4 g/dl (14.0-18.0); Mean Corpuscular Hemoglobin 32.4 pg (25.0-34.0); Mean Corpuscular Hgb Conc 33.3 g/dL (32.0-36.0); Mean Corpuscular Volume 97.2 fL (80.0-100.0); Mean Platelet Volume 9.6 fL (9.4-12.4); Platelet Count 271 K/uL (130-400); RDW Coefficient of Variation 13.2 % (11.5-14.5); RDW Standard Deviation 47.7 fL (36.4-46.3); Red Blood Count 3.52 M/uL (4.70-6.10); White Blood Count 8.19 K/ul (4.8-10.8)
[2024-12-06 07:17] LABS: BUN Creatinine Ratio 20.9 (10-20); Calcium 7.4 mg/dl (8.6-10.3); Creatinine Clr Calc Pharmacy 119.5 ml/min; Magnesium 1.7 mg/dl (1.7-2.4); Potassium 3.6 mmol/L (3.5-5.1)
--- NOTE | 2024-12-06 09:12 | Pulmonology Progress Note ---
Date of Service December 06, 2024 Assessment & Plan (1) Acute respiratory failure with hypoxia: (2) Multifocal pneumonia: (3) COPD (chronic obstructive pulmonary disease): (4) Elevated diaphragm: Plan CT chest 11/27/2024 personally reviewed: Multifocal opacities appreciated in the left lung Atelectasis of the left lower lobe Elevated left hemidiaphragm No significant mediastinal lymphadenopathy --Acute hypoxic respiratory failure Secondary to multifocal pneumonia Procalcitonin 0.03 Respiratory BioFire negative for everything on 11/27/2024, nasal MRSA negative --Elevated left hemidiaphragm Chronic Etiology is not clear --COPD [id number]-axdt smoking history quit around the age of 45 On Trelegy 200 at home seem to be in acute exacerbation -- Mentally challenged --History of complication post colonoscopy, patient requiring intubation for almost 2 weeks Admission and Anticipated Discharge Date Admission Date: November 28, 2024 Supervising Physician Co-Signing Physician Notes I saw and evaluated the patient with Farhad Echeverria PA-C, and agree with findings and plan as documented in the note. Patient seen and examined at bedside. No acute distress, no adverse events overnight He was saturating 95 to 96% on 2 L nasal cannula at rest. He says he is bringing up phlegm. Still having some chest congestion. Denies any nausea or vomiting Did have swallow eval today. Denies any headache Constitutional: No acute distress HEENT: EOMI, PERRLA Respiratory system: Decreased air entry on the left side, no wheeze, no rhonchi, positive crackles bilaterally more on the left side CVS: S1-S2 positive, positive 3 out of 6 systolic murmur appreciated best in the left parasternal region Abdomen: Soft, nontender, nondistended, positive bowel sounds x4 Extremities: +2 pulses bilaterally radialis/ dorsalis pedis, no cyanosis, minimal dependent edema bilateral lower extremity Neuro: Awake alert oriented x3 Psych: Normal mood and affect G/U: No Armando Plan: Swallow eval does show Zenker's diverticulum with trace aspiration, patient is most of the time laying on the left side, the probability of patient having silent aspiration is very high Continue with pulmonary toileting Mucomyst to be added today to the regimen Change inhalers and nebulizers while hospitalized Recommend patient to be sleeping/lying on the right side rather than left. Patient says that he is not able to lay on the right side because of osteoarthritic pain. Case was discussed with primary team. No plan for bronchoscopy right now. Please note the above document was generated using voice recognition software. It may contain grammatical, syntax or spelling errors.Any formal questions or concerns about the content, text or information contained within the body of this dictation should be directly addressed to the provider for clarification. Subjective Patient seen and evaluated bedside. Reports feeling nasally congested. Persistent cough. No other complaints. Review of Systems 2 Review of Systems: As per HPI. Physical Exam 2 Physical Exam: Constitutional: No acute distress HEENT: EOMI, PERRLA Respiratory system: Decreased air entry on the left side, no wheeze, no rhonchi, positive crackles bilaterally more on the left side CVS: S1-S2 positive, positive 3 out of 6 systolic murmur appreciated best in the left parasternal region Abdomen: Soft, nontender, nondistended, positive bowel sounds x4 Extremities: +2 pulses bilaterally radialis/ dorsalis pedis, no cyanosis, minimal dependent edema bilateral lower extremity Neuro: Awake alert oriented x3 Psych: Normal mood and affect G/U: No Armando Skin: no rashes, warm and dry Lymphatic: no cervical or axillary lymphadenopathy Results & Data Results & Data Vital Signs (Past 12 Hours) Vital Signs Temp Pulse Pulse Resp BP Pulse Ox O2 Del Method 12/06/24 08:18 Nasal Cannula 12/06/24 07:55 36.7 C 58 L 20 122/65 93 Nasal Cannula 12/06/24 07:09 61 18 97 Nasal Cannula 12/06/24 05:40 115/75 12/06/24 02:57 36.7 C 60 18 102/55 L 95 Nasal Cannula 12/05/24 22:37 Nasal Cannula 12/05/24 22:15 36.5 C 65 18 147/84 H 95 Nasal Cannula 12/05/24 21:58 63 O2 Flow Rate 12/06/24 08:18 2 12/06/24 07:55 3.0 12/06/24 07:09 2 12/06/24 05:40 12/06/24 02:57 12/05/24 22:37 2 12/05/24 22:15 2 12/05/24 21:58 Laboratory Results 12/06/24 06:20 12/06/24 06:20 PG Care Time/CCT Total # of Minutes Spent Total Time Spent with Patient: Total time spent is greater than 50% in coordination of care (as documented) at patient's floor/unit and/or counseling patient: Coding Level of Care Code 43681 SUB INP/OBS CARE 3/50MIN Diagnoses Acute respiratory failure with hypoxia J96.01 Multifocal pneumonia J18.9 COPD (chronic obstructive pulmonary disease) J44.9 Elevated diaphragm J98.6
[2024-12-06] MEDS: ACETYLCYSTEINE 20% INHAL SOLN 4ML ***DISPENSED BY RESP. INH SCH (09:59)
--- NOTE | 2024-12-06 10:59 | Fluoroscopy Report ---
FL video swallow CLINICAL HISTORY: Aspiration. TECHNIQUE: Video fluoroscopic evaluation of swallowing was performed in the AP and lateral projection s by the speech pathology staff. The patient is fed nectar-thick and thin liquid barium, a barium coa familia wafer, and barium pudding. FLUOROSCOPY TIME: 2 minutes. COMPARISON: None FINDINGS: There is a small Zenker's diverticulum. There is trace aspiration, likely from overflow fro m the Zenker's diverticulum. IMPRESSION: Trace aspiration. ACT 112: Negative or not required by law. Electronically signed by: Jeremy Pepe M.D. 12/06/2024 10:58 AM
[2024-12-06] MEDS: AMOXICILLIN/CLAVULANATE 875 MG TAB PO SCH (14:25)
--- NOTE | 2024-12-06 17:34 | Hospitalist Progress Note ---
Date of Service December 06, 2024 Assessment & Plan (1) Multifocal pneumonia: (2) Acute respiratory failure with hypoxia: (3) Generalized weakness: (4) Zenker diverticulum: Plan The patient is a 69-year-old male with past medical history including intellectual delay, COPD, osteoporosis, insomnia, chronic diarrhea, HTN, BPH, GERD with esophagitis and large hiatal hernia, anxiety/depression, seasonal allergies who p/w worsening SOB, JULIEN, and productive cough for a few days. CXR w/ significant multifocal pneumonia, in part associated with large left hiatal hernia, and bibasilar infiltrates. He was started on vancomycin, cefepime, doxycycline IV and was then referred for evaluation for admission. He was found to have pulse ox 88% on room air, which improved to 94% with 2 L nasal cannula. He did complain of feeling generally weak, and had decreased oral intake as well. #Multifocal PNA/Acute respiratory failure with hypoxia/COPD-CXR with large HH and CTA Chest neg for PE but again with multifocal PNA mostly on left. CXR repeated 12/05 shows worsening left sided opacities. Remains on 2LNC O2 at rest and needs 3LNC with exertion base don 2 step walk test. He received 7 days of IV Cefepime and 8 days of doxycycline with not much improvement and in fact CXR appears worse. Leukocytosis of 23k on admission is now normal and he is afebrile. Procal normal, BNP elevated, blood cxs negative. Resp Biofire neg, MRSA nasal swab neg Speech therapy assessed swallow at bedside and does not note overt aspiration- recommends soft bite sized diet, however then seen by PULM who suspected aspiration---> had video swallow study today which confirmed Zenker's diverticulum and silent aspiration being refluxed from that. Sputum cx pin point growth ECHO normal -PULM recommends lying on right side as much as possible when sleeping to avoid silent reflux aspiration -With pleuritic left sided chest pain now resolved with toradol-continue prn toradol -follow sputum cx -dc doxy and start Augmentin as per PULM recommendation for 7 more days -consult PULM and see if recommends change in antibiotics -continue supplemental O2 -continue hypertonic saline nebs along with scheduled Duonebs bid and PULM added Mucomyst nebs -continue maintenance inhalers #GERD/Large Hiatal hernia/Zenker's diverticulum-continue PPI, reflux precautions, lay on right side #Anx/Depression-stable -continue propranolol, seroquel, fluoxetine, trazodone, and scheduled lorazepam #Chronic diarrhea-with large volume stools and on antibiotics -check C. diff if continues -hold Imodium for now #BPH-no acute issues, not on meds DVT proph-SQ heparin Dispo-continued stay PCU, likely dc to home tomorrow, improving discussed care with sister at bedside on 12/05 and will call on 12/06 Admission and Anticipated Discharge Date Admission Date: November 28, 2024 Subjective Pt feels better. Anxious to go home. Had video swallow today which showed large Zenker's. I discussed his care with Speech therapy and with PULM Tele with SB and NSR rates 50s-60s Physical Exam Constitutional: + thin Respiratory: normal respiratory effort Auscultation: + diminished lung sounds (left base) and + crackles (right base); no rhonchi and no wheezes Cardiovascular: Rate/Rhythm: regular rate and regular rhythm Heart Sounds: + murmur (2/6 holosystolic murmur at left lower sternum) Gastrointestinal (Abdomen): normal bowel sounds, soft, nontender, no hepatosplenomegaly Psychiatric: A+Ox3, euthymic affect Results & Data Results & Data Vital Signs (Past 12 Hours) Vital Signs Temp Pulse Resp BP Pulse Ox O2 Del Method O2 Flow Rate 12/06/24 16:06 36.6 C 66 19 136/78 Room Air 2.0 12/06/24 12:00 36.7 C 64 19 119/67 94 Nasal Cannula 2.0 12/06/24 08:18 Nasal Cannula 2 12/06/24 07:55 36.7 C 58 L 20 122/65 93 Nasal Cannula 3.0 12/06/24 07:09 61 18 97 Nasal Cannula 2 12/06/24 05:40 115/75 Laboratory Results CBC, BMP, magnesium, procal reviewed Sputum cx reviewed PG Care Time/CCT Total # of Minutes Spent Total Time Spent with Patient: Total time spent is greater than 50% in coordination of care (as documented) at patient's floor/unit and/or counseling patient: Coding Level of Care Code 11294 SUB INP/OBS CARE 2/35MIN Diagnoses Multifocal pneumonia J18.9 Acute respiratory failure with hypoxia J96.01 Generalized weakness R53.1 Zenker diverticulum K22.5
[2024-12-06] MEDS: FORMOTEROL 20 MCG/2 ML VIAL NEB SCH (19:06)
[2024-12-06] MEDS: BUDESONIDE 0.25 MG/2 ML VIAL (PULMICORT) NEB SCH (19:06)
--- NOTE | 2024-12-07 08:17 | Pulmonology Progress Note ---
Date of Service December 07, 2024 Assessment & Plan (1) Acute respiratory failure with hypoxia: (2) Multifocal pneumonia: (3) COPD (chronic obstructive pulmonary disease): (4) Elevated diaphragm: Plan CT chest 11/27/2024 personally reviewed: Multifocal opacities appreciated in the left lung Atelectasis of the left lower lobe Elevated left hemidiaphragm No significant mediastinal lymphadenopathy --Acute hypoxic respiratory failure Secondary to multifocal pneumonia Procalcitonin 0.03 Respiratory BioFire negative for everything on 11/27/2024, nasal MRSA negative --Elevated left hemidiaphragm Chronic Etiology is not clear --COPD 00-[id number]-lqtm smoking history quit around the age of 45 On Trelegy 200 at home seem to be in acute exacerbation -- Mentally challenged --History of complication post colonoscopy, patient requiring intubation for almost 2 weeks Admission and Anticipated Discharge Date Admission Date: November 28, 2024 Supervising Physician Co-Signing Physician Notes I saw and evaluated the patient with Farhad Echeverria PA-C, and agree with findings and plan as documented in the note. Patient seen and examined at bedside. No acute distress, no adverse events overnight He was lying on the left side saturating 94 % on 2 L nasal cannula He stated he is feeling much better when it comes to his breathing he was asking when he can go home. Able to bring up phlegm which is mostly clear. Denies any headache Fair appetite Constitutional: No acute distress HEENT: EOMI, PERRLA Respiratory system: Decreased air entry on the left side, no wheeze, no rhonchi, positive crackles bilaterally more on the left side CVS: S1-S2 positive, positive 3 out of 6 systolic murmur appreciated best in the left parasternal region Abdomen: Soft, nontender, nondistended, positive bowel sounds x4 Extremities: +2 pulses bilaterally radialis/ dorsalis pedis, no cyanosis, minimal dependent edema bilateral lower extremity Neuro: Awake alert oriented x3 Psych: Normal mood and affect G/U: No Armando Plan: Swallow eval does show Zenker's diverticulum with trace aspiration, patient is most of the time laying on the left side, the probability of patient having silent aspiration is very high. Continue with pulmonary toileting. Continue with Mucomyst. Continue with nebulizers while hospitalized. Recommend chest x-ray to be done in approximately 2 weeks as an outpatient Case was discussed with primary team. Please note the above document was generated using voice recognition software. It may contain grammatical, syntax or spelling errors.Any formal questions or concerns about the content, text or information contained within the body of this dictation should be directly addressed to the provider for clarification. Subjective Patient was seen and evaluated at bedside. Patient was out of bed to chair this morning having breakfast. He reports that his breathing well. He is still with a cough. He is still requiring supplemental oxygen. He is hoping to ambulate around the room today. He is anxious for discharge soon. Review of Systems 2 Review of Systems: All systems reviewed & are unremarkable except as noted in Subjective Physical Exam 2 Physical Exam: Constitutional: No acute distress HEENT: EOMI, PERRLA Respiratory system: Decreased air entry on the left side, no wheeze, no rhonchi, positive crackles bilaterally more on the left side CVS: S1-S2 positive, positive 3 out of 6 systolic murmur appreciated best in the left parasternal region Abdomen: Soft, nontender, nondistended, positive bowel sounds x4 Extremities: +2 pulses bilaterally radialis/ dorsalis pedis, no cyanosis, minimal dependent edema bilateral lower extremity Neuro: Awake alert oriented x3 Psych: Normal mood and affect G/U: No Armando Skin: no rashes, warm and dry Lymphatic: no cervical or axillary lymphadenopathy Results & Data Results & Data Vital Signs (Past 12 Hours) Vital Signs Temp Pulse Pulse Resp BP BP Pulse Ox 12/07/24 07:44 61 19 135/72 91 12/07/24 04:15 61 20 93 12/06/24 22:38 36.6 C 65 18 132/72 95 12/06/24 21:41 64 O2 Del Method O2 Flow Rate 12/07/24 07:44 Nasal Cannula 2 12/07/24 04:15 Nasal Cannula 2 12/06/24 22:38 Nasal Cannula 12/06/24 21:41 Laboratory Results 12/06/24 06:20 12/06/24 06:20 PG Care Time/CCT Total # of Minutes Spent Total Time Spent with Patient: Total time spent is greater than 50% in coordination of care (as documented) at patient's floor/unit and/or counseling patient: Coding Level of Care Code 66569 SUB INP/OBS CARE 2/35MIN Diagnoses Acute respiratory failure with hypoxia J96.01 Multifocal pneumonia J18.9 COPD (chronic obstructive pulmonary disease) J44.9 Elevated diaphragm J98.6
[2024-12-07 10:44] VITALS: RESP 17; TEMP 98.4; O2SAT 92
[2024-12-07 11:28] VITALS: BP 114/72; PULSE 58
--- NOTE | 2024-12-07 12:41 | Discharge Summary ---
Discharge Summary Date of Service December 07, 2024 Principal Dx & Hospital Course #1 = Principal Diagnosis (1) Multifocal pneumonia: (2) Acute respiratory failure with hypoxia: (3) Generalized weakness: (4) Zenker diverticulum: Plan The patient is a 69-year-old male with past medical history including intellectual delay, COPD, osteoporosis, insomnia, chronic diarrhea, HTN, BPH, GERD with esophagitis and large hiatal hernia, anxiety/depression, seasonal allergies who p/w worsening SOB, JULIEN, and productive cough for a few days. CXR w/ significant multifocal pneumonia, in part associated with large left hiatal hernia, and bibasilar infiltrates. He was started on vancomycin, cefepime, doxycycline IV and was then referred for evaluation for admission. He was found to have pulse ox 88% on room air, which improved to 94% with 2 L nasal cannula. He did complain of feeling generally weak, and had decreased oral intake as well. #Multifocal PNA/Acute respiratory failure with hypoxia/COPD-CXR with large HH and CTA Chest neg for PE but again with multifocal PNA mostly on left. CXR repeated 12/05 shows worsening left sided opacities. He received 7 days of IV Cefepime and 8 days of doxycycline with not much improvement and in fact CXR appeared worse. Leukocytosis of 23k on admission is now normal and he is afebrile. Procal normal, BNP elevated, blood cxs negative. Resp Biofire neg, MRSA nasal swab neg. Sputum culture with Serina albicans-likely a colonizer and not pathogenic Speech therapy assessed swallow at bedside and does not note overt aspiration- recommends soft bite sized diet, however then seen by PULM who suspected aspiration---> had video swallow study which confirmed Zenker's diverticulum and silent aspiration being refluxed from that. He was switched to Augmentin and was given Mucomyst nebs and hypertonic saline with scheduled DuoNebs twice daily. He had great improvement. He used IV Toradol for several doses for left-sided pleuritic pain which was improved on the day of discharge -PULM recommends lying on right side as much as possible when sleeping to avoid silent reflux aspiration -Encourage other aspiration precautions and good oral hygiene to prevent future aspiration pneumonia -Continue Augmentin for 6 more days after discharge -Recommend chest x-ray in 4 weeks and follow-up with pulmonology in 2 to 3 weeks -continue supplemental O2 at 2L NC continuously -continue maintenance inhalers after discharge -Two-step walk test on the day of discharge shows that he needs 2 L of O2 via nasal cannula continuously. #Heart murmur-echo normal #GERD/Large Hiatal hernia/Zenker's diverticulum-continue PPI, reflux precautions, lay on right side #Anx/Depression-stable -continue propranolol, seroquel, fluoxetine, trazodone, and scheduled lorazepam #Chronic diarrhea-with large volume stools and on antibiotics-improved -Continue as needed Imodium at home #BPH-no acute issues, not on meds DVT proph-SQ heparin Dispo-stable for discharge to home discussed care with sister on the phone on the day of discharge Notes For Next Care Provider Follow-up chest x-ray in 4 weeks Follow-up with pulmonology in 2 to 3 weeks Medication Changes From Visit Added Augmentin 875/125 mg p.o. twice daily x 6 more days Admission HPI Per Admitting Provider The patient is a 69-year-old male with past medical history including COPD, osteoporosis, insomnia, constipation, recurring or tract infection, hypertension, BPH, GERD with esophagitis, anxiety with depression, seasonal allergies and asthma. The patient presents to the emergency department with complaint of worsening shortness of breath, dyspnea on exertion, productive co ugh over the past few days. Workup in the emergency department included chest x-ray showing significant multifocal pneumonia, in part associated with large left hiatal hernia, and bibasilar infiltrates. He was started on vancomycin, cefepime, doxycycline IV and was then referred for evaluation for admission. He was found to have pulse ox 88% on room air, which improved to 94% with 2 L nasal cannula. Discharge Exam Constitutional + thin; not ill appearing Respiratory normal respiratory effort; no cough Auscultation: + diminished lung sounds (left base); no crackles, no rhonchi and no wheezes Cardiovascular Rate/Rhythm: regular rate and regular rhythm Heart Sounds: + murmur (2/6 holosystolic murmur at left lower sternum) Gastrointestinal (Abdomen) normal bowel sounds, soft, nontender, no hepatosplenomegaly Psychiatric A+Ox3, euthymic affect Discharge Plan Discharge Items Patient Disposition: Home - Self-Care Reason For Visit: MALTIFOCAL PNEUMONIA, ACUTE RESP FAILURE W/ HYPOXI Discharge Diagnosis: Multifocal PNA, aspiration pneumonia Acute respiratory failure with hypoxemia Condition on Discharge: Fair Activity: As commented below Lifting: Gradually increase as tolerated Bathing: No limitations Exercise/Sports: Gradually increase as tolerated Non-emergency contact: Primary Care Provider Call non-emergency contact if: you have any medication questions Follow-up/Referrals: Cira Randall MD, FCCP [Physician] - (Please follow up within 2-3 weeks) Syed Capone DO [Primary Care Provider] - (Follow-up within 1 to 2 weeks) Diet: Regular Diet Texture: Easy to Chew Addtl Attending Provider Instructions: You were admitted with aspiration pneumonia and treated with antibiotics and nebulizer treatments. Please finish out 6 more days of the oral antibiotic called Augmentin, twice daily. You will need to stay on 2 liters of oxygen at all times. Please have a chest x-ray in 4 weeks to ensure resolution of your pneumonia. You should follow-up with pulmonology within 2 weeks. You were found on a video swallow study to have a Zenker's diverticulum in your esophagus. This is causing you to have reflux and aspiration of food and drinks into your lungs. It is important that you try to always lay on your right side when sleeping because of your large hiatal hernia. You should not lay down within 1 hour after eating. It is important to have good oral hygiene in order to keep bacteria from going down into your lungs when you aspirate. Pending Studies at Discharge: Yes (Sputum culture) Stand-Alone Forms: My [facility], Smoking Cessation Medications and DC Order Prescriptions: New amoxicillin-pot clavulanate 875-125 mg Tablet 1 tab PO BIDM Qty: 12 0RF Continued omeprazole 40 mg capsule,delayed release(DR/EC) 40 mg PO DAILY Qty: 90 3RF quetiapine 50 mg tablet 50 mg PO BID Qty: 180 3RF Rx Instructions: TAKE 1 TABLET BY MOUTH TWICE A DAY fluoxetine 20 mg capsule 20 mg PO DAILY Qty: 90 3RF Rx Instructions: TOTAL DOSE 60 MG--TAKES WITH 40 MG CAP fluoxetine 40 mg capsule 40 mg PO DAILY Qty: 90 3RF Rx Instructions: TOTAL DOSE 60 MG--20 MG CAP. Trelegy Ellipta 200-62.5-25 mcg blister with device 1 inh inhalation Q24H Qty: 60 3RF propranolol 40 mg tablet 40 mg PO BID 90 Days Qty: 180 1RF lorazepam 0.5 mg tablet 0.5 mg PO TID Qty: 90 2RF (DME) BD GINO 2 GEN PEN NDL 32G 4MM See Rx Instructions .Route .MEDSUPPLY Qty: 360 1RF Rx Instructions: As directed NEEDLES TO BE USES WITH TYMLOS INJECTIONS DAILY teriparatide 20 mcg/dose (600mcg/2.4mL) pen injector 20 mcg subcut DAILY Qty: 2.4 3RF (DME) nebulizer accessories Kit See Rx Instructions .ROUTE .MEDSUPPLY Qty: 1 0RF Rx Instructions: As directed (DME) nebulizer and compressor Device See Rx Instructions .ROUTE .MEDSUPPLY Qty: 1 0RF Rx Instructions: As directed mecobalamin (vitamin B12) 5,000 mcg tablet,disintegrating 5,000 mcg PO DAILY vitamin B complex Capsule 1 cap PO DAILY ferrous sulfate [FeroSul] 325 mg (65 mg iron) tablet 325 mg PO DAILY multivitamin Tablet 1 tab PO DAILY acetaminophen [Tylenol] 325 mg tablet 650 mg PO QID PRN (Reason: Pain) cholecalciferol (vitamin D3) [Vitamin D3] 50 mcg (2,000 unit) capsule 50 mcg PO DAILY loperamide [Imodium A-D] 2 mg capsule 2 mg PO DAILY PRN (Reason: loose stool) Qty: 120 2RF trazodone 100 mg tablet 100 mg PO HS Qty: 90 3RF melatonin 3 mg Tablet 6 mg PO HS PRN (Reason: Pain) Discontinued sulfamethoxazole-trimethoprim [Bactrim] 400-80 mg tablet 0.5 tab PO DAILY 90 Days Qty: 45 3RF Rx Instructions: take one half a tablet once a day Discharge Orders: Discharge Order (Routine); Ordered 12/07/24 Ordered By: Laquita Patten Admission Data Admit Date/Time: 11/28/24 00:36 Attending Provider: Laquita Patten Admit Provider: Ayaz Ledesma Primary Care Provider: Syed Capone Other Providers: Ayaz Ledesma; Cira Randall Hospital Stay Data Consultations 11/27/24 23:18 ED Decision to Admit Stat 12/05/24 13:04 Consult Pulmonology Routine Diagnostic Imagining Performed 11/27/24 21:57 CT angio chest PE protocol Stat 12/06/24 08:09 [place] video swallow Routine Echocardiogram Pending Results Patient Have Any Pending Studies at Discharge: Yes (Sputum culture) Discharge Instructions Given to Patient (Per Discharging Provider) You were admitted with aspiration pneumonia and treated with antibiotics and nebulizer treatments. Please finish out 6 more days of the oral antibiotic called Augmentin, twice daily. You will need to stay on 2 liters of oxygen at all times. Please have a chest x-ray in 4 weeks to ensure resolution of your pneumonia. You should follow-up with pulmonology within 2 weeks. You were found on a video swallow study to have a Zenker's diverticulum in your esophagus. This is causing you to have reflux and aspiration of food and drinks into your lungs. It is important that you try to always lay on your right side when sleeping because of your large hiatal hernia. You should not lay down within 1 hour after eating. It is important to have good oral hygiene in order to keep bacteria from going down into your lungs when you aspirate. Total Time Total Time Spent Total Time Spent (In Minutes): 35 minutes Total Time Includes: Examination of the Patient, Discharge Planning and Medication Reconciliation Coding Level of Care Code 14514 INP/OBS DISCH >30 MIN Diagnoses Multifocal pneumonia J18.9 Acute respiratory failure with hypoxia J96.01 Generalized weakness R53.1 Zenker diverticulum K22.5
== END 2024-12-07 15:11 | disposition home or self-care (01) | DRG 193 ==
LOC: ED 20:46 → SUATTDRO 11-28 00:36 → 2E 11-28 00:36

== ENCOUNTER 2025-02-06 16:18 | Inpatient (IN) ==
[2025-02-06 17:18] LABS: INR 1.1 (0.9-1.1); Partial Thromboplastin Ratio 1.2; Partial Thromboplastin Time 32 Seconds (21-31); Prothrombin Time 11.5 Seconds (9.0-12.0)
[2025-02-06 17:20] LABS: Albumin Level 3.6 gm/dl (3.4-5.0); BUN Creatinine Ratio 44.8 (10-20); Bilirubin,Total 0.4 mg/dl (0.2-1.0); Calcium 8.3 mg/dl (8.6-10.3); Globulin 1.8 gm/dl (2.5-4.0); Potassium 5.2 mmol/L (3.5-5.1); Total Protein 5.4 gm/dl (6.0-8.3)
--- NOTE | 2025-02-06 17:20 | XRay Report ---
Clinical History: Chest pain Technique: A frontal view of the chest was obtained Comparison is made to the prior examination dated 01/08/2025 Findings: There is apparent emphysema. There are slightly worsened bilateral lower lobe and left upper lobe infiltrates, concerning for pneumonia. The heart size is within normal limits. No pleural effusion or pneumothorax is seen. There is unchanged elevation of the left hemidiaphragm No fracture is noted. No foreign body is seen Impression: 1. Apparent bilateral pneumonia 2. Emphysema 3. Elevation of the left hemidiaphragm ACT 112: Positive. There are findings on this exam that require communication between the performing entity and the patient following Patient Test Result Information Act ([place] ACT 112) guidelines. Electronically signed by Kai Unger 02-06-2025 5:19 PM
--- NOTE | 2025-02-06 17:55 | Emergency Department Note ---
Impression & Plan Hypoxia Admission ED Provider Note HPI: History obtained from patient. The patient is a 69-year-old gentleman who presents the emergency department with a chief complaint of cough. Patient presents with his sister at the bedside. She states that the patient has had a cough for the past several days, he states that he is having difficulty "clearing my chest cavity". Patient has not actually complained of any pain at home according to his sister. Patient is a somewhat poor historian. On arrival here to the ED the patient is hemodynamically stable, on my initial assessment he is saturating well on room air without any increased work of breathing in the ED room. ROS: - Per HPI Differential Diagnosis: Pneumonia, viral upper respiratory with cough/acute bronchitis, ACS, pulmonary edema, COPD exacerbation, amongst other potential pathologies. *Outpatient medications and allergy history reviewed. PE: General: Alert, frail-appearing and cachectic, no acute distress HEENT: Normocephalic, trachea midline Eyes: Extraocular eye movement is intact, no scleral erythema Pulmonary: Clear to auscultation bilaterally, no wheezing Cardio: Regular rate and rhythm GI: Abdomen is soft to palpation : No suprapubic tenderness MSK: No evidence of trauma or malformation of the extremities, no edema Skin: No evidence of rash Neuro: Alert, no focal deficits Psychiatric: Cooperative INDEPENDENT INTERPRETATIONS: monitor worker: (As interpreted by myself): - An order was placed for continuous cardiac monitoring - Patient was noted to be in sinus rhythm with a rate of 70 EKG: (As interpreted by myself): Rate: 69 Rhythm: Normal sinus rhythm Intervals: Within normal limits ST changes: No ST elevation Time: 1628 Chest x-ray: (As interpreted by myself): Bilateral pneumonia Interventions provided in ED: - IV ceftriaxone, IV azithromycin, IV fluid bolus Medical Decision Making: IV was established and lab work obtained, patient was placed on electronic device monitor. Lab work shows a mild leukocytosis of 12.08, hemoglobin is stable at 12.9, platelet count is slightly elevated at 407, VBG shows a venous pH of 7.31, pCO2 is normal. CMP shows a mildly elevated potassium at 5.2, no evidence of acute kidney injury, procalcitonin is low. Chest x-ray does show evidence of bilateral pneumonia, blood cultures were drawn and the patient was treated with IV ceftriaxone as well as IV azithromycin. Viral panel testing is positive for enterovirus/rhinovirus. Given the patient did have multiple episodes of hypoxia to 88% on room air here in the ED, he will require admission. Patient and his family member at the bedside were in agreement. Case was discussed with the on-call hospitalist, Dr. Davis, and the patient was placed for admission in stable condition. Consultants/Discussions held with other healthcare providers: - Hospitalist, Dr. Davis Disposition discussion held by myself with: - Patient and patient's sister at the bedside * CRITICAL CARE TIME: ( 35 ) minutes - Stabilization of patient with hypoxia with oxygen saturations at 88% on room air requiring supplemental oxygen for correction, time spent at the bedside, interpretation of diagnostic studies, discussion with other physicians and arrangement of admission. Diagnosis: 1. Hypoxia, acute 2. Bilateral pneumonia, acute 3. Leukocytosis, acute 4. Cough, acute 5. Enterovirus/rhinovirus positive PCR testing, acute Disposition: Admission Chente Forrest DO Emergency Medicine Past Med/Surg History Problem List (Updated 02/06/25 @ 22:44 by Chente Forrest DO) Hypoxia (Acute) Rhinovirus Pneumonia Serina infection of genital region Ex-smoker Compression fracture of L2 (Chronic) Compression fracture of L1 lumbar vertebra (Chronic) Compression fracture of T6 vertebra (Chronic) Chronic lumbar pain Zenker diverticulum Elevated diaphragm Ambulatory dysfunction Multifocal pneumonia (Acute) Onychomycosis Hypogonadism in male Insomnia Osteoporosis COPD (chronic obstructive pulmonary disease) Constipation Low back pain Recurrent UTI HTN (hypertension) (~07/13/24) Anemia BPH (benign prostatic hyperplasia) Chewing tobacco nicotine dependence GERD with esophagitis Anxiety Depression Seasonal allergies Asthma Medical History Acute respiratory failure with hypoxia Generalized weakness COPD exacerbation Hx of compression fracture of spine L1 and L2 Fracture Risk Assessment Score (FRAX) indicating greater than 3% risk for hip fracture Fracture Risk Assessment Score (FRAX) indicating greater than 20% risk for major osteoporosis-related fracture Rib pain on left side Weight loss Acute UTI Chronic diarrhea Fecal incontinence Agitation Intellectual disability Otomycosis Sensorineural hearing loss (SNHL) of both ears Chronic rhinitis Chronic sinusitis Excessive cerumen in both ear canals Recurrent falls Surgical History History of sinus surgery History of tooth extraction History of cataract extraction with lens replacement History of clubfoot correction History of hernia repair Family History Mother Hearing loss Father Hypertension Cancer Prostate cancer Rheumatoid arthritis Aunt Stroke Grandfather (Maternal) Stomach cancer Other No family history of adverse response to anesthesia No family history of bleeding disorder Denies family history of Ovarian cancer Diabetes Myocardial infarction Breast cancer Lung cancer Colorectal cancer Social History Smoking Status: Former smoker Tobacco Type: Cigarettes and Smokeless Tobacco (Dip or Chew) Age Started Using Tobacco: 18; Age Quit Using Tobacco: 28; packs per day: 0; Smoking End Date: 2004; Second Hand Exposure: No; Do You Dip or Chew Tobacco: No; Tobacco Cessation Education Requested by Patient: No Hx Alcohol Use: No Hx Substance Use: No Preferred Language: Israeli Communication Ability: Effective Visual Impairment: Limited Hearing Ability: Use of Hearing Aid Radio Machinist Required: No Beliefs That Will Affect Care: None marital status: Single Current Living Situation: Alone current occupational status: disabled Other Information That Helps Us Care for You: No Feels Safe at Home: Yes Safety Concerns: Feels Safe At This Time Childhood Exposure to Second-Hand Smoke: No caffeine: Yes Dental Care, Regularly: No Physical Activity Frequency: Does not Exercise Seatbelt Use: always Sunscreen Use: Yes Assistive Devices: Cane Allergies Allergies Allergy/AdvReac Type Severity Reaction Status Date / Time diazepam AdvReac Intermediate OPPOSITE Verified 02/06/25 18:37 EFFECT Home Meds Home Medications Medication Instructions Recorded Confirmed ferrous sulfate 325 mg (65 mg 325 mg PO DAILY 06/02/22 02/06/25 iron) tablet (FeroSul) mecobalamin (vitamin B12) 5,000 5,000 mcg PO DAILY 06/02/22 02/06/25 mcg disintegrating tablet multivitamin 1 tab PO DAILY 06/02/22 02/06/25 vitamin B complex 1 cap PO DAILY 06/02/22 02/06/25 cholecalciferol (vitamin D3) 50 50 mcg PO DAILY 04/07/24 02/06/25 mcg (2,000 unit) capsule (Vitamin D3) melatonin 3 mg tablet 3 - 6 mg PO HS 11/27/24 02/06/25 acetaminophen 650 mg 650 mg PO DIRECTED PRN Pain 01/08/25 02/06/25 tablet,extended release (Tylenol Arthritis Pain) albuterol sulfate 2.5 mg/3 mL 2.5 mg inhalation QID PRN 01/08/25 02/06/25 (0.083 %) solution for nebulization Shortness Of Breath ascorbic acid (vitamin C) 500 mg 500 mg PO DAILY 01/08/25 02/06/25 tablet (Vitamin C) ibuprofen 200 mg tablet 400 mg PO BID 01/08/25 02/06/25 sulfamethoxazole 400 0.5 tab PO HS 01/08/25 02/06/25 mg-trimethoprim 80 mg tablet (Bactrim) loperamide 2 mg capsule (Imodium 2 mg PO QPM loose stool 02/06/25 02/06/25 A-D) Previous Rx's Medication Instructions Recorded nebulizer accessories #1 ea 10/30/23 nebulizer and compressor #1 ea 10/30/23 omeprazole 40 mg capsule,delayed 40 mg PO DAILY #90 caps 05/17/24 release fluoxetine 20 mg capsule 20 mg PO DAILY #90 caps 06/16/24 fluoxetine 40 mg capsule 40 mg PO DAILY #90 caps 06/16/24 quetiapine 50 mg tablet 50 mg PO BID #180 tabs 06/16/24 trazodone 100 mg tablet 100 mg PO HS #90 tabs 07/13/24 propranolol 40 mg tablet 40 mg PO BID 90 days #180 tabs 10/06/24 BD GINO 2 GEN PEN NDL 32G 4MM #360 ea 11/24/24 teriparatide 20 mcg/dose (560 20 mcg (0.08 mL) subcut DAILY #2.4 11/24/24 mcg/2.24 mL) subcutaneous pen mL injector lorazepam 0.5 mg tablet 0.5 mg PO TID anxiety #90 tabs 01/02/25 budesonide 160 mcg-glycopyr 9 2 inh inhalation BID #10.7 grams 01/03/25 mcg-formot 4.8 mcg/actuation HFA inhaler (Breztri Aerosphere) ketoconazole 2 % topical cream 1 applic topical BID #60 grams 01/19/25 celecoxib 100 mg capsule (Celebrex) 100 mg PO BID #60 caps 01/23/25 Results & Data (ED) Vital Signs Vital Signs - 24 hr 02/06/25 16:21 02/06/25 16:26 02/06/25 17:48 Temperature 36.4 C L Temperature Source Temporal Artery Scan Pulse Rate 70 Pulse Rate [Left Finger] 67 Pulse Rhythm [Left Finger] Pulse Strength [Left Finger] Respiratory Rate 18 20 Respiratory Effort / Characteristics Non-Labored Spontaneous Respiratory Depth Normal Respiratory Pattern Regular Blood Pressure 127/76 Blood Pressure [Left Arm] 126/72 Blood Pressure Mean 93 Blood Pressure Mean [Left Arm] 90 Pulse Oximetry 88 L 94 94 Oxygen Delivery Method Room Air Nasal Cannula Room Air Oxygen Flow Rate 2 Sepsis Recent Fever Within 48 Hours No Sepsis New/Unexplained Change in Mental Status No Sepsis Action Taken by Nursing No Action Required 02/06/25 18:51 02/06/25 19:00 02/06/25 19:00 Temperature Temperature Source Pulse Rate 71 Pulse Rate [Left Finger] Pulse Rhythm [Left Finger] Pulse Strength [Left Finger] Respiratory Rate Respiratory Effort / Characteristics Respiratory Depth Normal Respiratory Pattern Blood Pressure Blood Pressure [Left Arm] Blood Pressure Mean Blood Pressure Mean [Left Arm] Pulse Oximetry 88 L Oxygen Delivery Method Room Air Room Air Oxygen Flow Rate Sepsis Recent Fever Within 48 Hours Sepsis New/Unexplained Change in Mental Status Sepsis Action Taken by Nursing 02/06/25 19:00 02/06/25 19:00 02/06/25 19:30 Temperature Temperature Source Pulse Rate 71 Pulse Rate [Left Finger] 71 Pulse Rhythm [Left Finger] Regular Pulse Strength [Left Finger] Normal Respiratory Rate 20 20 Respiratory Effort / Characteristics Respiratory Depth Respiratory Pattern Blood Pressure Blood Pressure [Left Arm] 121/74 Blood Pressure Mean Blood Pressure Mean [Left Arm] 89 Pulse Oximetry 88 L 88 L 98 Oxygen Delivery Method Room Air Room Air Nasal Cannula Oxygen Flow Rate 2 Sepsis Recent Fever Within 48 Hours Sepsis New/Unexplained Change in Mental Status Sepsis Action Taken by Nursing Laboratory Data 02/06/25 16:34 02/06/25 16:34 Lab Results 02/06/25 02/06/25 02/06/25 Range/Units 16:34 18:03 19:23 WBC 12.08 H (4.8-10.8) K/ul RBC 4.03 L (4.70-6.10) M/uL Hgb 12.9 L (14.0-18.0) g/dl Hct 39.4 L (42.0-52.0) % MCV 97.8 (80.0-100.0) fL MCH 32.0 (25.0-34.0) pg MCHC 32.7 (32.0-36.0) g/dL RDW Std Deviation 47.7 H (36.4-46.3) fL RDW Coeff of Fabio 13.2 (11.5-14.5) % Plt Count 407 H (130-400) K/uL MPV 9.6 (9.4-12.4) fL Immature Gran % (Auto) 0.4 % Neut % (Auto) 84.6 % Lymph % (Auto) 7.4 % [place] % (Auto) 7.0 % Eos % (Auto) 0.4 % Baso % (Auto) 0.2 % Neut # (Auto) 10.21 H (1.40-6.50) K/uL Lymph # (Auto) 0.89 L (1.20-3.40) K/uL [place] # (Auto) 0.85 H (0.11-0.59) K/uL Eos # (Auto) 0.05 (0.00-0.50) K/uL Baso # (Auto) 0.03 (0.00-0.20) K/uL Immature Gran # (Auto) 0.05 (0.01-0.20) K/uL PT 11.5 (9.0-12.0) Seconds INR 1.1 (0.9-1.1) APTT 32 H (21-31) Seconds PTT Ratio 1.2 VBG pH 7.31 L (7.36-7.41) VBG pCO2 47 (38-50) mmHg VBG pO2 < 20 mmHg VBG HCO3 24 mmol/L VBG O2 Saturation < 60.0 % VBG Base Excess -2.9 mEq/L Sodium 137 (136-145) mmol/L Potassium 5.2 H (3.5-5.1) mmol/L Chloride 107 (98-107) mmol/L Carbon Dioxide 26 (21-32) mmol/L Anion Gap 4 (3-11) BUN 26 H (6-23) mg/dl Creatinine 0.58 L (0.6-1.4) mg/dl Est Cr Clr Drug Dosing 77.0 ml/min eGFR 105.57 BUN/Creatinine Ratio 44.8 H (10-20) Glucose 87 (70-99(Fasting)) mg/dl Calcium 8.3 L (8.6-10.3) mg/dl Total Bilirubin 0.4 (0.2-1.0) mg/dl AST 34 (13-39) U/L ALT 52 (7-52) U/L Alkaline Phosphatase 129 H (34-104) U/L Troponin I High Sens 13.0 (0-20) pg/ml Total Protein 5.4 L (6.0-8.3) gm/dl Albumin 3.6 (3.4-5.0) gm/dl Globulin 1.8 L (2.5-4.0) gm/dl Albumin/Globulin Ratio 2.0 (0.9-2) Procalcitonin 0.03 (0-0.5) ng/ml Adenovirus (PCR) Not Detected (NotDetected) B. pertussis DNA (PCR) Not Detected (NotDetected) B.parapertussis DNA PCR Not Detected (NotDetected) C. pneumoniae DNA (PCR) Not Detected (NotDetected) Coronavirus OC43 (PCR) Not Detected (NotDetected) Coronavirus HKU1 (PCR) Not Detected (NotDetected) Coronavirus 229E (PCR) Not Detected (NotDetected) SARS-CoV-2 (PCR) Not Detected (NotDetected) Coronavirus NL63 (PCR) Not Detected (NotDetected) Human Metapneumovir PCR Not Detected (NotDetected) Influenza Type A (PCR) Not Detected (NotDetected) Influenza Type B (PCR) Not Detected (NotDetected) M. pneumoniae (PCR) Not Detected (NotDetected) Parainfluenza 1 (PCR) Not Detected (NotDetected) Parainfluenza 2 (PCR) Not Detected (NotDetected) Parainfluenza 3 (PCR) Not Detected (NotDetected) Parainfluenza 4 (PCR) Not Detected (NotDetected) RSV (PCR) Not Detected (NotDetected) Entero/Rhino (PCR) DETECTED A (NotDetected) Administered Medications Celecoxib (Celecoxib 100 Mg Cap) 100 mg PO BID DOTTY Stop: 03/08/25 21:53 Last Admin: 02/06/25 22:52 Dose: 100 mg Documented By: VK Enoxaparin Sodium (Enoxaparin Inj 40 Mg/0.4 Ml Syr) 40 mg SQ Q24H DOTTY Stop: 03/08/25 21:53 Last Admin: 02/06/25 22:51 Dose: 40 mg Documented By: VK Ketoconazole (Ketoconazole 2% Cr 15 Gm Tube) 1 appln EXT BID DOTTY Stop: 02/16/25 21:53 Last Admin: 02/06/25 22:53 Dose: 1 appln Documented By: VK Loperamide HCl (Loperamide Hcl 2 Mg Cap) 2 mg PO QPM DOTTY Stop: 03/08/25 21:53 Last Admin: 02/06/25 23:17 Dose: 2 mg Documented By: VK Lorazepam (Lorazepam 0.5 Mg Tab) 0.5 mg PO TID DOTTY Stop: 03/08/25 21:53 Last Admin: 02/06/25 22:48 Dose: 0.5 mg Documented By: VK Propranolol HCl (Propranolol Hcl 20 Mg Tab) 40 mg PO BID DOTTY Stop: 03/08/25 21:53 Last Admin: 02/06/25 22:46 Dose: 40 mg Documented By: VK Quetiapine Fumarate (Quetiapine Fumarate 25 Mg Tablet) 50 mg PO BID DOTTY Stop: 03/08/25 21:53 Last Admin: 02/06/25 22:46 Dose: 50 mg Documented By: VK Sodium Chloride (Sodium Chlor 7% 4 Ml Neb) 4 ml NEB BIDR DOTTY Stop: 03/08/25 20:59 Last Admin: 02/06/25 23:20 Dose: Not Given Documented By: LGB Trazodone HCl (Trazodone Hcl 100 Mg Tab) 100 mg PO HS DOTTY Stop: 03/08/25 21:53 Last Admin: 02/06/25 23:18 Dose: 100 mg Documented By: VK Discontinued Medications Celecoxib (Celecoxib 100 Mg Cap) 100 mg PO NOW STA Stop: 02/06/25 20:19 Last Admin: 02/06/25 22:55 Dose: Not Given Documented By: VK Sodium Chloride (Nss) 1,000 mls @ 999 mls/hr IV .Q1H1M ONE Stop: 02/06/25 18:52 Last Infusion: 02/06/25 19:31 Dose: Infused Documented By: Admin: 02/06/25 18:01 Dose: 999 mls/hr Documented By: JESSICA Ceftriaxone Sodium (Rocephin) 2,000 mg in 50 mls @ 100 mls/hr IV NOW STA Stop: 02/06/25 19:36 Last Infusion: 02/06/25 21:35 Dose: Infused Documented By: Admin: 02/06/25 20:25 Dose: 100 mls/hr Documented By: CHICHI Azithromycin (Zithromax) 500 mg in 255 mls @ 127.5 mls/hr IV NOW ONE Stop: 02/06/25 21:06 Last Admin: 02/06/25 21:40 Dose: 127.5 mls/hr Documented By: EMILY Piperacillin Sod/Tazobactam Sod (Zosyn) 4.5 gm in 100 mls @ 200 mls/hr IV ONE ONE; Protocol Stop: 02/06/25 22:59 Last Admin: 02/06/25 23:18 Dose: 200 mls/hr Documented By: EMILY Imaging Data Radiologist's Impression: Chest X-Ray 02/06/25 16:25 Clinical History: Chest pain Technique: A frontal view of the chest was obtained Comparison is made to the prior examination dated 01/08/2025 Findings: There is apparent emphysema. There are slightly worsened bilateral lower lobe and left upper lobe infiltrates, concerning for pneumonia. The heart size is within normal limits. No pleural effusion or pneumothorax is seen. There is unchanged elevation of the left hemidiaphragm No fracture is noted. No foreign body is seen Impression: 1. Apparent bilateral pneumonia 2. Emphysema 3. Elevation of the left hemidiaphragm ACT 112: Positive. There are findings on this exam that require communication between the performing entity and the patient following Patient Test Result Information Act ([place] ACT 112) guidelines. Electronically signed by Kai Unger 02-06-2025 5:19 PM Discharge Plan Visit Data Chief Complaint: Chest Pain Stated Complaint: CHEST PAINS ED Provider: Chente Forrest Discharge Problem: Hypoxia Patient Disposition: Admitted As Inpatient Discharge Instructions Interventions: ED Discharge Assessment Last Done: 02/06/25 21:02
[2025-02-06] MEDS: SODIUM CHLORIDE 0.9% 1,000 ML IV ONE (18:01)
[2025-02-06 18:20] LABS: Basophils # (auto) 0.03 K/uL (0.00-0.20); Basophils % (auto) 0.2 %; Eosinophils # (auto) 0.05 K/uL (0.00-0.50); Eosinophils % (auto) 0.4 %; Hematocrit (blood only) 39.4 % (42.0-52.0); Hemoglobin 12.9 g/dl (14.0-18.0); Immature Granulocytes # (auto) 0.05 K/uL (0.01-0.20); Immature Granulocytes % (auto) 0.4 %; Lymphocytes # (auto) 0.89 K/uL (1.20-3.40); Lymphocytes % (auto) 7.4 %; Mean Corpuscular Hgb Conc 32.7 g/dL (32.0-36.0); Mean Corpuscular Volume 97.8 fL (80.0-100.0); Mean Platelet Volume 9.6 fL (9.4-12.4); Monocytes # (auto) 0.85 K/uL (0.11-0.59); Neutrophils # (auto) 10.21 K/uL (1.40-6.50); Neutrophils % (auto) 84.6 %; Platelet Count 407 K/uL (130-400); RDW Coefficient of Variation 13.2 % (11.5-14.5); RDW Standard Deviation 47.7 fL (36.4-46.3); Red Blood Count 4.03 M/uL (4.70-6.10); White Blood Count 12.08 K/ul (4.8-10.8)
[2025-02-06 19:14] LABS: Adenovirus PCR Not Detected (NotDetected); Bordetella parapertussis PCR Not Detected (NotDetected); Bordetella pertussis PCR Not Detected (NotDetected); Chlamydia pneumoniae PCR Not Detected (NotDetected); Coronavirus 229E PCR Not Detected (NotDetected); Coronavirus CoV-2 (COVID19)PCR Not Detected (NotDetected); Coronavirus HKU1 PCR Not Detected (NotDetected); Coronavirus NL63 PCR Not Detected (NotDetected); Coronavirus OC43PCR Not Detected (NotDetected); Human Metapneumovirus PCR Not Detected (NotDetected); Influenza A PCR Not Detected (NotDetected); Influenza B PCR Not Detected (NotDetected); Mycoplasma pneumoniae PCR Not Detected (NotDetected); Parainfluenza Virus 1 PCR Not Detected (NotDetected); Parainfluenza Virus 2 PCR Not Detected (NotDetected); Parainfluenza Virus 3 PCR Not Detected (NotDetected); Parainfluenza Virus 4 PCR Not Detected (NotDetected); Respiratory Syncytial VirusPCR Not Detected (NotDetected); Rhinovirus/Enterovirus PCR DETECTED (NotDetected)
--- NOTE | 2025-02-06 19:32 | History & Physical Report ---
Date of Service February 06, 2025 Assessment & Plan (1) Pneumonia: (2) Rhinovirus: Plan 69-year-old male PMHx COPD, OP, insomnia, constipation, HTN, BPH, GERD with esophagitis, anxiety with depression, seasonal allergies, and asthma who presents for chest pain starting the morning of arrival. ED evaluation reveals leukocytosis 12.08, H&H 12.9/39.4; PT/INR WNL, APTT 32; CMP potassium 5.2, creatinine 0.58, BUN 28, ratio 44.8, calcium 8.3, alk phos 129, protein 5.4, globulin 1.8; pending procalcitonin; pending BioFire; CXR reveals bilateral pneumonia with emphysema and elevation of the L hemidiaphragm; EKG NSR at 69 bpm.; Provided with 1L NSS, ceftriaxone 2 g IV, and azithromycin 500 mg IV in ED. #PNA/Rhinovirus Sx of chest pain starting morning of arrival with associated productive cough.; Requiring hospitalization for multifocal pneumonia in November 2024. Curb 65 score 2 (BUN, age) but high risk aspiration PNA, admission appropriate. Of note, L elevated hemidiaphragm chronic finding. Follows with pulmonology most recent visit being 12/22/2024. History of COPD, approximately 35 pack/year smoking history. Did have episode of hypoxia during ED course, 88% requiring supplemental O2. No O2 at baseline. Suspect component of aspiration + rhin ovirus. - CBC with leukocytosis 12.08; procalcitonin 0.03; VBGs pH 7.31; BioFire positive for rhinovirus; blood cx pending - CBC am - CXR reveals bilateral PNA with emphysema and elevation of L hemidiaphragm - Troponin 13; EKG NSR 69 bpm - no current CP - Aspiration precautions, fall precautions, droplet precautions - O2 prn; Previously had required O2 2L NC at all times per baseline, but per m ost recent pulmonary visit no additional oxygen - FV + IC - Tylenol prn fever - DuoNeb antelmo, hypertonic saline nebs - Previously on vancomycin, cefepime, and doxy for past PNA but without improvement and worsening CXR, so was switched to Augmentin and had improvement with such - Zosyn IV -- adjust antibiotics as appropriate - Speech therapy consulted - appreciate input + recs - Consider pulm consult as appropriate - no consult at time of admission #Asthma/COPD- Follows with pulm, no O2 at baseline; antelmo inhalers - continue #GERD/hiatal hernia/Zenker's diverticulum- Omeprazole - continue #Anxiety/depression- Propranolol, Seroquel, fluoxetine, trazodone, scheduled lorazepam - continue #Chronic diarrhea- Imodium as needed -- Patient often gets diarrhea with abx - INCREASE DOSE/FREQUENCY IF DIARRHEA STARTS #BPH/Recurrent UTI- Prophylactic bactrim #Chronic back pain/OP- Follows with pain management; On teriparatide for OP; Continue home pain regimen, will adjust as appropriate Dispo: Admit, med/tele VTE Prophylaxis: Lovenox This document was dictated utilizing [employer]. Please excuse any grammatical errors that may be secondary to use of this software. Admission and Anticipated Discharge Date Admission Date: 02/06/2025 History of Present Illness Chief Complaint: Chest pain Primary Care Provider: Syed Capone, 69-year-old male PMHx COPD, OP, insomnia, constipation, HTN, BPH, GERD with esophagitis, anxiety with depression, seasonal allergies, and asthma who presents for chest pain starting the morning of arrival. Did have a history of pneumonia in November and with recent hospitalization from 11/28/2024 until 12/07/2024 for such. States that he was having difficulties "clearing chest" because of the congestion in his chest. He has had a productive cough with yellow sputum. No fever or chills. States that the chest pain is more so from the coughing. Does have difficulties with swallowing at times and with history of Zenker's diverticulum which did require surgery in the past but complications resulting in intubation. States that symptoms are easy feels like he wheezes afterwards. No palpitations, abdominal pain, N/V/D/C, numbness/tingling, URI symptoms, LUTS, weakness, or syncope. 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 Patient's sister is present in visit and helps provide history. Patient's sister states that during his prior hospitalization, the patient did not respond well to the initial antibiotics that he was placed on and she is concerned that he is going to be placed on the incorrect antibiotics. Patient relays that he is concerned about being put on the correct antibiotics. No O2 at baseline. ED evaluation reveals leukocytosis 12.08, H&H 12.9/39.4; PT/INR WNL, APTT 32; CMP potassium 5.2, creatinine 0.58, BUN 28, ratio 44.8, calcium 8.3, alk phos 129, protein 5.4, globulin 1.8; pending procalcitonin; pending BioFire; CXR reveals bilateral pneumonia with emphysema and elevation of the L hemidiaphragm; EKG NSR at 69 bpm.; Provided with 1L NSS, ceftriaxone 2 g IV, and azithromycin 500 mg IV in ED. Please see Dr. Davis's attestation for adjustments/additions to treatment plan. Allergies Allergy/AdvReac Type Severity Reaction Status Date / Time diazepam AdvReac Intermediate OPPOSITE Verified 02/06/25 18:37 EFFECT Home Medications Medication Instructions Recorded Confirmed Type ferrous sulfate 325 mg (65 mg 325 mg PO DAILY 06/02/22 02/06/25 History iron) tablet (FeroSul) mecobalamin (vitamin B12) 5,000 5,000 mcg PO DAILY 06/02/22 02/06/25 History mcg disintegrating tablet multivitamin 1 tab PO DAILY 06/02/22 02/06/25 History vitamin B complex 1 cap PO DAILY 06/02/22 02/06/25 History nebulizer accessories #1 ea 10/30/23 01/23/25 Rx nebulizer and compressor #1 ea 10/30/23 01/23/25 Rx cholecalciferol (vitamin D3) 50 50 mcg PO DAILY 04/07/24 02/06/25 History mcg (2,000 unit) capsule (Vitamin D3) omeprazole 40 mg capsule,delayed 40 mg PO DAILY #90 caps 05/17/24 02/06/25 Rx release fluoxetine 20 mg capsule 20 mg PO DAILY #90 caps 06/16/24 02/06/25 Rx fluoxetine 40 mg capsule 40 mg PO DAILY #90 caps 06/16/24 02/06/25 Rx quetiapine 50 mg tablet 50 mg PO BID #180 tabs 06/16/24 02/06/25 Rx trazodone 100 mg tablet 100 mg PO HS #90 tabs 07/13/24 02/06/25 Rx propranolol 40 mg tablet 40 mg PO BID 90 days #180 tabs 10/06/24 02/06/25 Rx BD GINO 2 GEN PEN NDL 32G 4MM #360 ea 11/24/24 01/23/25 Rx teriparatide 20 mcg/dose (560 20 mcg (0.08 mL) subcut DAILY #2.4 11/24/24 02/06/25 Rx mcg/2.24 mL) subcutaneous pen mL injector melatonin 3 mg tablet 3 - 6 mg PO HS 11/27/24 02/06/25 History lorazepam 0.5 mg tablet 0.5 mg PO TID anxiety #90 tabs 01/02/25 02/06/25 Rx budesonide 160 mcg-glycopyr 9 2 inh inhalation BID #10.7 grams 01/03/25 02/06/25 Rx mcg-formot 4.8 mcg/actuation HFA inhaler (Breztri Aerosphere) acetaminophen 650 mg 650 mg PO DIRECTED PRN Pain 01/08/25 02/06/25 History tablet,extended release (Tylenol Arthritis Pain) albuterol sulfate 2.5 mg/3 mL 2.5 mg inhalation QID PRN 01/08/25 02/06/25 History (0.083 %) solution for nebulization Shortness Of Breath ascorbic acid (vitamin C) 500 mg 500 mg PO DAILY 01/08/25 02/06/25 History tablet (Vitamin C) ibuprofen 200 mg tablet 400 mg PO BID 01/08/25 02/06/25 History sulfamethoxazole 400 0.5 tab PO HS 01/08/25 02/06/25 History mg-trimethoprim 80 mg tablet (Bactrim) ketoconazole 2 % topical cream 1 applic topical BID #60 grams 01/19/25 02/06/25 Rx celecoxib 100 mg capsule (Celebrex) 100 mg PO BID #60 caps 01/23/25 02/06/25 Rx loperamide 2 mg capsule (Imodium 2 mg PO QPM loose stool 02/06/25 02/06/25 History A-D) Past Med/Surg History Problem List Hypoxia (Acute) Rhinovirus Pneumonia Serina infection of genital region Ex-smoker Compression fracture of L2 (Chronic) Compression fracture of L1 lumbar vertebra (Chronic) Compression fracture of T6 vertebra (Chronic) Chronic lumbar pain Zenker diverticulum Elevated diaphragm Ambulatory dysfunction Multifocal pneumonia (Acute) Onychomycosis Hypogonadism in male Insomnia Osteoporosis COPD (chronic obstructive pulmonary disease) Constipation Low back pain Recurrent UTI HTN (hypertension) (~07/13/24) Anemia BPH (benign prostatic hyperplasia) Chewing tobacco nicotine dependence GERD with esophagitis Anxiety Depression Seasonal allergies Asthma Medical History Acute respiratory failure with hypoxia Generalized weakness COPD exacerbation Hx of compression fracture of spine L1 and L2 Fracture Risk Assessment Score (FRAX) indicating greater than 3% risk for hip fracture Fracture Risk Assessment Score (FRAX) indicating greater than 20% risk for major osteoporosis-related fracture Rib pain on left side Weight loss Acute UTI Chronic diarrhea Fecal incontinence Agitation Intellectual disability Otomycosis Sensorineural hearing loss (SNHL) of both ears Chronic rhinitis Chronic sinusitis Excessive cerumen in both ear canals Recurrent falls Surgical History History of sinus surgery History of tooth extraction History of cataract extraction with lens replacement History of clubfoot correction History of hernia repair Family History Mother Hearing loss Father Hypertension Cancer Prostate cancer Rheumatoid arthritis Aunt Stroke Grandfather (Maternal) Stomach cancer Other No family history of adverse response to anesthesia No family history of bleeding disorder Denies family history of Ovarian cancer Diabetes Myocardial infarction Breast cancer Lung cancer Colorectal cancer Social History Smoking Status: Former smoker Tobacco Type: Cigarettes and Smokeless Tobacco (Dip or Chew) Age Started Using Tobacco: 18; Age Quit Using Tobacco: 28; packs per day: 0; Smoking End Date: 2004; Second Hand Exposure: No; Do You Dip or Chew Tobacco: No; Tobacco Cessation Education Requested by Patient: No Hx Alcohol Use: No Hx Substance Use: No Preferred Language: Romanian Communication Ability: Effective Visual Impairment: Limited Hearing Ability: Use of Hearing Aid Tobacco Sizer Required: No Beliefs That Will Affect Care: None marital status: Single Current Living Situation: Alone current occupational status: disabled Other Information That Helps Us Care for You: No Feels Safe at Home: Yes Safety Concerns: Feels Safe At This Time Childhood Exposure to Second-Hand Smoke: No caffeine: Yes Dental Care, Regularly: No Physical Activity Frequency: Does not Exercise Seatbelt Use: always Sunscreen Use: Yes Assistive Devices: Cane Review of Systems Review of Systems: All systems reviewed & are unremarkable except as noted in Subjective Physical Exam Physical Exam: General: No acute distress, thin Skin: Warm and dry Head: Normocephalic, atraumatic Eyes: PERRL, conjunctivae clear, sclera non-icteric; wearing glasses ENT: External ear and ear canal without swelling; nose atraumatic; good dentition, tongue normal appearance, pharynx normal Neck: Supple, no LAD Cardio: RRR, no M/G/R, S1 and S2 normal Resp: Faint expiratory wheezing, congestion/coughing during exam Abdomen: Soft, symmetric, nontender; No masses or hepatosplenomegaly; Bowel sounds normoactive MSK: No deformities; pulses palpable and equal; no edema. Neuro: Awake, alert; Sensation intact bilaterally; CN grossly intact Psych: Poor historian. Appropriate mood and affect. Sister present in room at time of visit. Results & Data Results & Data Vital Signs (Past 12 Hours) Vital Signs Temp Pulse Pulse Resp BP BP Pulse Ox 02/06/25 17:48 67 20 126/72 94 02/06/25 16:26 94 02/06/25 16:21 36.4 C L 70 18 127/76 88 L O2 Del Method O2 Flow Rate 02/06/25 17:48 Room Air 02/06/25 16:26 Nasal Cannula 2 02/06/25 16:21 Room Air Laboratory Results 02/06/25 19:23 Aerobic Blood Culture - Pending Blood Anaerobic Blood Culture - Pending 02/06/25 19:23 Aerobic Blood Culture - Pending Blood Anaerobic Blood Culture - Pending 02/06/25 02/06/25 18:03 16:34 WBC 12.08 H RBC 4.03 L Hgb 12.9 L Hct 39.4 L MCV 97.8 MCH 32.0 MCHC 32.7 RDW Std Deviation 47.7 H RDW Coeff of Fabio 13.2 Plt Count 407 H MPV 9.6 Immature Gran % (Auto) 0.4 Neut % (Auto) 84.6 Lymph % (Auto) 7.4 [place] % (Auto) 7.0 Eos % (Auto) 0.4 Baso % (Auto) 0.2 Neut # (Auto) 10.21 H Lymph # (Auto) 0.89 L [place] # (Auto) 0.85 H Eos # (Auto) 0.05 Baso # (Auto) 0.03 Immature Gran # (Auto) 0.05 PT 11.5 INR 1.1 APTT 32 H PTT Ratio 1.2 Sodium 137 Potassium 5.2 H Chloride 107 Carbon Dioxide 26 Anion Gap 4 BUN 26 H Creatinine 0.58 L Est Cr Clr Drug Dosing 77.0 eGFR 105.57 BUN/Creatinine Ratio 44.8 H Glucose 87 Calcium 8.3 L Total Bilirubin 0.4 AST 34 ALT 52 Alkaline Phosphatase 129 H Troponin I High Sens 13.0 Total Protein 5.4 L Albumin 3.6 Globulin 1.8 L Albumin/Globulin Ratio 2.0 Adenovirus (PCR) Not Detected B. pertussis DNA (PCR) Not Detected B.parapertussis DNA PCR Not Detected C. pneumoniae DNA (PCR) Not Detected Coronavirus OC43 (PCR) Not Detected Coronavirus HKU1 (PCR) Not Detected Coronavirus 229E (PCR) Not Detected SARS-CoV-2 (PCR) Not Detected Coronavirus NL63 (PCR) Not Detected Human Metapneumovir PCR Not Detected Influenza Type A (PCR) Not Detected Influenza Type B (PCR) Not Detected M. pneumoniae (PCR) Not Detected Parainfluenza 1 (PCR) Not Detected Parainfluenza 2 (PCR) Not Detected Parainfluenza 3 (PCR) Not Detected Parainfluenza 4 (PCR) Not Detected RSV (PCR) Not Detected Entero/Rhino (PCR) DETECTED A Diagnostic Findings Chest X-Ray 02/06/25 16:25 Clinical History: Chest pain Technique: A frontal view of the chest was obtained Comparison is made to the prior examination dated 01/08/2025 Findings: There is apparent emphysema. There are slightly worsened bilateral lower lobe and left upper lobe infiltrates, concerning for pneumonia. The heart size is within normal limits. No pleural effusion or pneumothorax is seen. There is unchanged elevation of the left hemidiaphragm No fracture is noted. No foreign body is seen Impression: 1. Apparent bilateral pneumonia 2. Emphysema 3. Elevation of the left hemidiaphragm ACT 112: Positive. There are findings on this exam that require communication between the performing entity and the patient following Patient Test Result Information Act ([place] ACT 112) guidelines. Electronically signed by Kai Unger 02-06-2025 5:19 PM Medications Administered 1L NSS Ceftriaxone 2 g IV Azithromycin 500 mg IV ECG Additional Comments: NSR, LVH 69 bpm, DE 189, QRS 88, QT/QTc 362/387, PRT 65/59/79 Code Status & VTE Plan Code Status DNR/DNI Supervising Physician Co-Signing Physician Notes patient seen and examined, chart reviewed, case discussed with JANET Villa I agree with assessment plan as document above. In brief, patient is a 69-year-old male with history of COPD, hypertension, GERD presenting with chest pain On physical exam patient is frail, thin elderly male resting comfortably, no acute distress Nasal cannula in place + S1, S2, regular, no murmur/rub/gallops Lungs with coarse breath sounds in bilateral bases right greater than left, no wheeze Abdomen soft, nontender/nondistended Extremitieswarm, well-perfused Labs and images reviewed. Significant for leukocytosis with WBC = 12.08 with neutrophil predominance, elevated platelet count = 407 + entero-/rhinovirus Chest x-ray suggestive of bilateral pneumonia Assessment/plan #Pneumonia with rhinovirus Supportive care, Tylenol as needed Zosyn DuoNebs as needed, hypertonic saline Speech/swallow evaluation Remainder of plan as above PG Care Time/CCT Total # of Minutes Spent Total Time Spent with Patient: Total time spent is greater than 50% in coordination of care (as documented) at patient's floor/unit and/or counseling patient: Coding Level of Care Code 61315 INT INP/OBS CARE 3/75MIN Diagnoses Pneumonia J18.9 Rhinovirus B34.8
[2025-02-06 19:35] LABS: Base Excess VBG -2.9 mEq/L; HCO3 VBG 24 mmol/L; Oxygen Saturation VBG < 60.0 %; PCO2 VBG 47 mmHg (38-50); PO2 VBG < 20 mmHg; pH VBG 7.31 (7.36-7.41)
[2025-02-06] MEDS: cefTRIAXone SODIUM 2,000 MG/50 ML BAG IV STA (20:25)
[2025-02-06] MEDS: AZITHROMYCIN 500 MG/255 ML BAG IV ONE (21:40)
[2025-02-06] MEDS ORDERED: ONDANSETRON INJ 2 MG/ML 2 ML VIAL IV PRN (21:54)
[2025-02-06] MEDS ORDERED: POLYETHYLENE (MIRALAX) 17 GM PACK PO PRN (21:54)
[2025-02-06] MEDS ORDERED: NON-FORMULARY MEDICATION (Budesonide-Glycopyr-Formoterol [Breztri Aerosphere] 160-9-4.8 mc INH SCH (21:54)
[2025-02-06] MEDS ORDERED: IBUPROFEN 200 MG TAB PO SCH (21:54)
[2025-02-06] MEDS ORDERED: PIPERACILLIN/TAZOBACTAM 4.5 GM/100 ML BAG IV ONE (22:30)
[2025-02-06] MEDS: PROPRANOLOL HCL 20 MG TAB PO SCH (22:46)
[2025-02-06] MEDS: QUEtiapine FUMARATE 25 MG TABLET PO SCH (22:46)
[2025-02-06] MEDS: LORazepam 0.5 MG TAB PO SCH (22:48)
[2025-02-06] MEDS: ENOXAPARIN INJ 40 MG/0.4 ML SYR SQ SCH (22:51)
[2025-02-06] MEDS: CELECOXIB 100 MG CAP PO SCH (22:52)
[2025-02-06] MEDS: KETOCONAZOLE 2% CR 15 GM TUBE EXT SCH (22:53)
[2025-02-06] MEDS: CELECOXIB 100 MG CAP PO STA (22:55)
[2025-02-06] MEDS ORDERED: ALBUT/IPRATROP 3MG/0.5MG NEB 3 ML VIAL NEB SCH (23:00)
[2025-02-06] MEDS: LOPERAMIDE HCL 2 MG CAP PO SCH (23:17)
[2025-02-06] MEDS: traZODone HCL 100 MG TAB PO SCH (23:18)
[2025-02-06] MEDS: PIPERACILLIN/TAZOBACTAM 4.5 GM/100 ML BAG IV ONE (23:18)
[2025-02-06] MEDS: SODIUM CHLOR 7% 4 ML NEB NEB SCH (23:20)
[2025-02-07] MEDS: PIPERACILLIN/TAZOBACTAM 4.5 GM/100 ML BAG IV SCH (03:39)
[2025-02-07 06:12] LABS: Hematocrit (blood only) 31.8 % (42.0-52.0); Hemoglobin 10.9 g/dl (14.0-18.0); Mean Corpuscular Hemoglobin 32.8 pg (25.0-34.0); Mean Corpuscular Hgb Conc 34.3 g/dL (32.0-36.0); Mean Corpuscular Volume 95.8 fL (80.0-100.0); Mean Platelet Volume 9.5 fL (9.4-12.4); Platelet Count 236 K/uL (130-400); RDW Coefficient of Variation 12.9 % (11.5-14.5); RDW Standard Deviation 45.1 fL (36.4-46.3); Red Blood Count 3.32 M/uL (4.70-6.10); White Blood Count 7.62 K/ul (4.8-10.8)
[2025-02-07 06:37] LABS: BUN Creatinine Ratio 43.6 (10-20); Calcium 7.6 mg/dl (8.6-10.3); Creatinine Clr Calc Pharmacy 114.3 ml/min; Potassium 4.5 mmol/L (3.5-5.1)
[2025-02-07] MEDS: ALBUT/IPRATROP 3MG/0.5MG NEB 3 ML VIAL NEB SCH (06:49)
[2025-02-07] MEDS: For Breztri~FLUTICASONE FUROATE 200MCG 14 PUFFS/INHALER INH SCH (08:54)
[2025-02-07] MEDS: For Breztri~UMECLIDINIUM/VILANTEROL 62.5/25MCG 7 PUFFS/INHALER INH SCH (08:54)
[2025-02-07] MEDS: FERROUS SULFATE 325 MG TAB PO SCH (08:56)
[2025-02-07] MEDS: FLUoxetine HCL 20 MG CAP PO SCH (08:56)
[2025-02-07] MEDS: PANTOprazole 40 MG TAB PO SCH (08:56)
[2025-02-07] MEDS ORDERED: FLUoxetine HCL 20 MG CAP PO SCH (09:00)
--- NOTE | 2025-02-07 09:57 | Pulmonary Consultation ---
Date of Consultation February 07, 2025 Assessment & Plan (1) Rhinovirus: (2) Ex-smoker: (3) COPD (chronic obstructive pulmonary disease): (4) Wheezing: (5) Abnormal chest x-ray: (6) Intellectual disability: (7) Elevated hemidiaphragm: Plan Chest x-ray 02/06/2025 personally reviewed: Good inspiratory effort, bilateral costophrenic angles are clean, elevated left hemidiaphragm. Questionable atelectasis of the right middle lobe CT chest 11/27/2024 personally reviewed: Multifocal opacities appreciated in the left lung Atelectasis of the left lower lobe Elevated left hemidiaphragm No significant mediastinal lymphadenopathy -- Shortness of breath with low-grade fever Respiratory BioFire was positive only for entero/rhinovirus on 02/06/2025 Procalcitonin negative --COPD [id number] smoking history quit around the age of 45 On BrezTri at home Nebulized Brovana/Perforomist along with budesonide and Yupelri could also be thought of I do not think prednisone on a daily basis or even burst of prednisone on a regular basis will make any difference when it comes to his lung function. I would advise against using prednisone as a means for increasing the appetite. Continue with Mucinex on an as-needed basis along with flutter valve Please make note patient does have history of aspiration and I think he will get pneumonias in future as well Patient's sister is aware of this --Elevated left hemidiaphragm Chronic Etiology is not clear -- Mentally challenged --History of complication post colonoscopy, patient requiring intubation for almost 2 weeks Plan: Chest x-ray from today does not show any significant abnormality compared to before, patient does have chronic scarring both side of the lung, Chest x-ray actually looks better compared to 01/08/2025. Procalcitonin is negative, he does have the entero-rhinovirus positivity Would recommend Mucinex along with flutter valve. If that does not help and chest vest addition will help. Recommend looking for other sources of infection as well. UA has been ordered by me Case discussed with RN as well as primary team Please note the above document was generated using voice recognition software. It may contain grammatical, syntax or spelling errors.Any formal questions or concerns about the content, text or information contained within the body of this dictation should be directly addressed to the provider for clarification. History of Present Illness Attending Physician: Jeremy Riley DO History of Present Illness 69-year-old male was admitted to the hospital because of shortness of breath Past medical history: Mentally challenged, anxiety/depression, GERD, Zenker's diverticulum Pulmonary consult for the same At the time of examination patient was lying comfortably at his usual left recumbent position. He was not in any distress On waking him up he stated that he has been having issues with wheezing and coughing since last couple of days Subjective fever. He is not able to bring up the phlegm. Does complain of chest congestion. No dysuria or diarrhea. He is compliant with his inhalers at home No unusual headache or blurry vision Social history: Approximately [id number] smoking history, quit around the age of 45 Pets: Dog, no birds or poultry nearby Allergies Allergy/AdvReac Type Severity Reaction Status Date / Time diazepam AdvReac Intermediate OPPOSITE Verified 02/06/25 18:37 EFFECT Home Medications Medication Instructions Recorded Confirmed Type ferrous sulfate 325 mg (65 mg 325 mg PO DAILY 06/02/22 02/06/25 History iron) tablet (FeroSul) mecobalamin (vitamin B12) 5,000 5,000 mcg PO DAILY 06/02/22 02/06/25 History mcg disintegrating tablet multivitamin 1 tab PO DAILY 06/02/22 02/06/25 History vitamin B complex 1 cap PO DAILY 06/02/22 02/06/25 History nebulizer accessories #1 ea 10/30/23 01/23/25 Rx nebulizer and compressor #1 ea 10/30/23 01/23/25 Rx cholecalciferol (vitamin D3) 50 50 mcg PO DAILY 04/07/24 02/06/25 History mcg (2,000 unit) capsule (Vitamin D3) omeprazole 40 mg capsule,delayed 40 mg PO DAILY #90 caps 05/17/24 02/06/25 Rx release fluoxetine 20 mg capsule 20 mg PO DAILY #90 caps 06/16/24 02/06/25 Rx fluoxetine 40 mg capsule 40 mg PO DAILY #90 caps 06/16/24 02/06/25 Rx quetiapine 50 mg tablet 50 mg PO BID #180 tabs 06/16/24 02/06/25 Rx trazodone 100 mg tablet 100 mg PO HS #90 tabs 07/13/24 02/06/25 Rx propranolol 40 mg tablet 40 mg PO BID 90 days #180 tabs 10/06/24 02/06/25 Rx BD GINO 2 GEN PEN NDL 32G 4MM #360 ea 11/24/24 01/23/25 Rx teriparatide 20 mcg/dose (560 20 mcg (0.08 mL) subcut DAILY #2.4 11/24/24 02/06/25 Rx mcg/2.24 mL) subcutaneous pen mL injector melatonin 3 mg tablet 3 - 6 mg PO HS 11/27/24 02/06/25 History lorazepam 0.5 mg tablet 0.5 mg PO TID anxiety #90 tabs 01/02/25 02/06/25 Rx budesonide 160 mcg-glycopyr 9 2 inh inhalation BID #10.7 grams 01/03/25 02/06/25 Rx mcg-formot 4.8 mcg/actuation HFA inhaler (Breztri Aerosphere) acetaminophen 650 mg 650 mg PO DIRECTED PRN Pain 01/08/25 02/06/25 History tablet,extended release (Tylenol Arthritis Pain) albuterol sulfate 2.5 mg/3 mL 2.5 mg inhalation QID PRN 01/08/25 02/06/25 History (0.083 %) solution for nebulization Shortness Of Breath ascorbic acid (vitamin C) 500 mg 500 mg PO DAILY 01/08/25 02/06/25 History tablet (Vitamin C) ibuprofen 200 mg tablet 400 mg PO BID 01/08/25 02/06/25 History sulfamethoxazole 400 0.5 tab PO HS 01/08/25 02/06/25 History mg-trimethoprim 80 mg tablet (Bactrim) ketoconazole 2 % topical cream 1 applic topical BID #60 grams 01/19/25 02/06/25 Rx celecoxib 100 mg capsule (Celebrex) 100 mg PO BID #60 caps 01/23/25 02/06/25 Rx loperamide 2 mg capsule (Imodium 2 mg PO QPM loose stool 02/06/25 02/06/25 History A-D) Patient History Medical History Acute respiratory failure with hypoxia Generalized weakness COPD exacerbation Hx of compression fracture of spine L1 and L2 Fracture Risk Assessment Score (FRAX) indicating greater than 3% risk for hip fracture Fracture Risk Assessment Score (FRAX) indicating greater than 20% risk for major osteoporosis-related fracture Rib pain on left side Weight loss Acute UTI Chronic diarrhea Fecal incontinence Agitation Intellectual disability Otomycosis Sensorineural hearing loss (SNHL) of both ears Chronic rhinitis Chronic sinusitis Excessive cerumen in both ear canals Recurrent falls Surgical History History of sinus surgery History of tooth extraction History of cataract extraction with lens replacement History of clubfoot correction History of hernia repair Family History Mother Hearing loss Father Hypertension Cancer Prostate cancer Rheumatoid arthritis Aunt Stroke Grandfather (Maternal) Stomach cancer Other No family history of adverse response to anesthesia No family history of bleeding disorder Denies family history of Ovarian cancer Diabetes Myocardial infarction Breast cancer Lung cancer Colorectal cancer Social History Smoking Status: Former smoker Tobacco Type: Cigarettes and Smokeless Tobacco (Dip or Chew) Age Started Using Tobacco: 18; Age Quit Using Tobacco: 28; packs per day: 0; Smoking End Date: 2004; Second Hand Exposure: No; Do You Dip or Chew Tobacco: No; Tobacco Cessation Education Requested by Patient: No Hx Alcohol Use: No Hx Substance Use: No Preferred Language: Tajik Communication Ability: Effective Visual Impairment: Limited Hearing Ability: Use of Hearing Aid [employer] Analyst Required: No Beliefs That Will Affect Care: None marital status: Single Current Living Situation: Alone current occupational status: disabled Other Information That Helps Us Care for You: No Feels Safe at Home: Yes Safety Concerns: Feels Safe At This Time Childhood Exposure to Second-Hand Smoke: No caffeine: Yes Dental Care, Regularly: No Physical Activity Frequency: Does not Exercise Seatbelt Use: always Sunscreen Use: Yes Assistive Devices: Cane Review of Systems 2 Review of Systems: All systems reviewed & are unremarkable except as noted in HPI & below Physical Exam 2 Physical Exam: Constitutional: No acute distress HEENT: EOMI, PERRLA Respiratory system: Decreased air entry bilaterally, no wheeze, positive rhonchi bilaterally, positive crackles bilateral lower lobes CVS: S1-S2 positive, no murmurs or gallops Abdomen: Soft, nontender, nondistended, positive bowel sounds x4 Extremities: +2 pulses bilaterally radialis/ dorsalis pedis, no cyanosis, no edema Neuro: Awake alert oriented x3 Psych: Normal mood and affect G/U: No Armando Skin: no rashes, warm and dry Lymphatic: no cervical or axillary lymphadenopathy Results & Data Results & Data Vital Signs (Past 12 Hours) Vital Signs Temp Pulse Pulse Resp BP Pulse Ox O2 Del Method 02/07/25 08:53 92 Room Air 02/07/25 08:31 65 02/07/25 08:28 36.9 C 64 20 109/63 93 Nasal Cannula 02/07/25 06:51 69 18 93 Nasal Cannula 02/07/25 04:40 36.8 C 67 18 124/78 96 Nasal Cannula 02/06/25 22:00 36.8 C 65 18 129/68 96 Nasal Cannula 02/06/25 22:00 74 02/06/25 22:00 Nasal Cannula O2 Flow Rate 02/07/25 08:53 02/07/25 08:31 02/07/25 08:28 2 02/07/25 06:51 2 02/07/25 04:40 02/06/25 22:00 2 02/06/25 22:00 02/06/25 22:00 2 Laboratory Results 02/07/25 05:36 02/07/25 05:36 PG Care Time/CCT Total # of Minutes Spent Total Time Spent with Patient: Total time spent is greater than 50% in coordination of care (as documented) at patient's floor/unit and/or counseling patient: Coding Level of Care Code 61078 INT INP/OBS CARE 3/75MIN Diagnoses Rhinovirus B34.8 Ex-smoker Z87.891 COPD (chronic obstructive pulmonary disease) J44.9 Wheezing R06.2 Abnormal chest x-ray R93.89 Intellectual disability F79 Elevated hemidiaphragm J98.6
[2025-02-07 12:45] LABS: Appearance Urine Clear (Clear); Bacteria Urine Automated None Seen (None Seen); Bilirubin Urine Negative (Negative); Blood Urine Negative (Negative); Cast Urine Automated 0-2 /lpf (0-2); Color Urine Yellow; Epithelial Cell Urine Auto 0-2 /hpf (0-2); Glucose Urine UA Negative (Negative); Ketones Urine Negative (Negative); Leukocyte Esterase Urine Trace (Negative); Nitrite Urine Negative (Negative); Protein Urine Negative (Negative); RBC Urine Automated 0-2 /hpf (0-2); Specific Gravity Urine 1.015 (1.000-1.030); Urobilinogen Urine Negative (Negative); WBC Urine Automated 0-5 /hpf (0-5)
--- NOTE | 2025-02-07 12:45 | Hospitalist Progress Note ---
Date of Service February 07, 2025 Assessment & Plan (1) Pneumonia: (2) Rhinovirus: Plan 69-year-old male PMHx COPD, OP, insomnia, constipation, HTN, BPH, GERD with esophagitis, anxiety with depression, seasonal allergies, and asthma who presents for chest pain starting the morning of arrival. ED evaluation reveals leukocytosis 12.08, H&H 12.9/39.4; PT/INR WNL, APTT 32; CMP potassium 5.2, creatinine 0.58, BUN 28, ratio 44.8, calcium 8.3, alk phos 129, protein 5.4, globulin 1.8; pending procalcitonin; pending BioFire; CXR reveals bilateral pneumonia with emphysema and elevation of the L hemidiaphragm; EKG NSR at 69 bpm.; Provided with 1L NSS, ceftriaxone 2 g IV, and azithromycin 500 mg IV in ED. #PNA/Rhinovirus Sx of chest pain starting morning of arrival with associated productive cough.; Requiring hospitalization for multifocal pneumonia in November 2024. Curb 65 score 2 (BUN, age) but high risk aspiration PNA, admission appropriate. Of note, L elevated hemidiaphragm chronic finding. Follows with pulmonology most recent visit being 12/22/2024. History of COPD, approximately 35 pack/year smoking history. Did have episode of hypoxia during ED course, 88% requiring supplemental O2. No O2 at baseline. Suspect component of aspiration + rhinovirus. - CBC with leukocytosis 12.08; procalcitonin 0.03; VBGs pH 7.31; BioFire positive for rhinovirus; blood cx pending - CBC am - CXR reveals bilateral PNA with emphysema and elevation of L hemidiaphragm - Troponin 13; EKG NSR 69 bpm - no current CP - Aspiration precautions, fall precautions, droplet precautions - O2 prn; Previously had required O2 2L NC at all times per baseline, but per most recent pulmonary visit no additional oxygen - FV + IC - Tylenol prn fever - DuoNeb antelmo, hypertonic saline nebs - Previously on vancomycin, cefepime, and doxy for past PNA but without improv ement and worsening CXR, so was switched to Augmentin and had improvement with such - Zosyn IV -- adjust antibiotics as appropriate - Speech therapy consulted - appreciate input + recs - Pulmonology consult - appreciate recs #Asthma/COPD- Follows with pulm, no O2 at baseline; antelmo inhalers - continue #GERD/hiatal hernia/Zenker's diverticulum- Omeprazole - continue #Anxiety/depression- Propranolol, Seroquel, fluoxetine, trazodone, scheduled lorazepam - continue #Chronic diarrhea- Imodium as needed -- Patient often gets diarrhea with abx - INCREASE DOSE/FREQUENCY IF DIARRHEA STARTS #BPH/Recurrent UTI- Prophylactic bactrim #Chronic back pain/OP- Follows with pain management; On teriparatide for OP; Continue home pain regimen, will adjust as appropriate Dispo: Admit, med/tele VTE Prophylaxis: Lovenox This document was dictated utilizing [employer]. Please excuse any grammatical errors that may be secondary to use of this software. Admission and Anticipated Discharge Date Admission Date: February 06, 2025 Supervising Physician Co-Signing Physician Notes ATTESTATION I also saw the patient and confirmed steven portions of the history and exam. I agree with the impression and plan in the resident documentation, and as summarized below. Feels slight better this AM. Non productive cough. EXAM Hemodynamically stable, afebrile A/O. NAD Lungs with scattered rhonchi, decreased air movement B/L DATA Labs HgB 10.9 Potassium 5.2 to 4.5 Micro Entero/Rhino (+) Blood cultures pending IMPRESSION & PLAN Rhinovirus Severe protein calorie malnutrition, BMI 15.6 Appreciate pulmonary consultation De-escalate antibiotics if blood cultures negative at [address] consultation Additional per resident documentation Subjective Patient seen and evaluated at bedside this morning. No acute events overnight. Is still coughing but not really bringing up much phlegm. Review of Systems Review of Systems: reviewed, per HPI Physical Exam Physical Exam: Constitutional: ill-appearing, no acute distress HEENT: NCAT, no conjunctival injection CV: extremities well-perfused, no LE edema Resp: no increased work of breathing GI: nondistended MSK: no gross deformities appreciated Skin: warm, dry, no rash appreciated Neuro: alert, oriented, no focal neurologic deficit appreciated Results & Data Results & Data Vital Signs (Past 12 Hours) Vital Signs Temp Pulse Pulse Resp BP Pulse Ox O2 Del Method 02/07/25 11:46 36.9 C 64 22 96/58 L 100 Room Air 02/07/25 10:52 Room Air 02/07/25 10:41 69 18 93 Room Air 02/07/25 08:53 92 Room Air 02/07/25 08:31 65 02/07/25 08:28 36.9 C 64 20 109/63 93 Nasal Cannula 02/07/25 06:51 69 18 93 Nasal Cannula 02/07/25 04:40 36.8 C 67 18 124/78 96 Nasal Cannula O2 Flow Rate 02/07/25 11:46 02/07/25 10:52 02/07/25 10:41 02/07/25 08:53 02/07/25 08:31 02/07/25 08:28 2 02/07/25 06:51 2 02/07/25 04:40 Resident Activity Tracking Resident Involvement: Resident Care Provided Care Provided: Adult Hospital Medicine
[2025-02-07] MEDS: BUDESONIDE 0.5 MG/2 ML VIAL (PULMICORT) NEB SCH (20:33)
[2025-02-07] MEDS: FORMOTEROL 20 MCG/2 ML VIAL NEB SCH (20:34)
[2025-02-07] MEDS: guaiFENesin 600 MG TABCR PO SCH (20:54)
--- NOTE | 2025-02-08 07:55 | XRay Report ---
EXAM: XR chest 1V portable CLINICAL HISTORY: f/u. TECHNIQUE: An X-ray image of the chest is obtained in AP projection. COMPARISON: 02/06/2025 X-ray. FINDINGS: Pulmonary Parenchyma: The left hemidiaphragm is elevated with patchy left basal opacity, likely due to basal atelectasis The left upper zone and right lower zone have faint infiltrations. No evidence of pleural effusion or pleural thickening. Heart and Mediastinum: Heart size and shape are normal. No mediastinal widening or masses. No hilar or mediastinal lymphadenopathy. Bony Thorax: Bony thorax appears intact without fractures or deformities. Soft Tissues: Soft tissues overlying the chest wall are unremarkable. IMPRESSION: 1. No gross interval change in comparison with 02/06/2025. 2. The left hemidiaphragm is elevated with patchy left basal opacity, likely due to basal atelectasis and bilateral infiltrations. Electronically signed by Irineo Capone 02-08-2025 07:54 AM
--- NOTE | 2025-02-08 12:44 | Hospitalist Progress Note ---
Date of Service February 08, 2025 Assessment & Plan (1) Pneumonia: (2) Rhinovirus: Plan 69-year-old male PMHx COPD, OP, insomnia, constipation, HTN, BPH, GERD with esophagitis, anxiety with depression, seasonal allergies, and asthma who presents for chest pain starting the morning of arrival. ED evaluation reveals leukocytosis 12.08, H&H 12.9/39.4; PT/INR WNL, APTT 32; CMP potassium 5.2, creatinine 0.58, BUN 28, ratio 44.8, calcium 8.3, alk phos 129, protein 5.4, globulin 1.8; pending procalcitonin; pending BioFire; CXR reveals bilateral pneumonia with emphysema and elevation of the L hemidiaphragm; EKG NSR at 69 bpm.; Provided with 1L NSS, ceftriaxone 2 g IV, and azithromycin 500 mg IV in ED. #PNA/Rhinovirus Sx of chest pain starting morning of arrival with associated productive cough.; Requiring hospitalization for multifocal pneumonia in November 2024. Curb 65 score 2 (BUN, age) but high risk aspiration PNA, admission appropriate. Of note, L elevated hemidiaphragm chronic finding. Follows with pulmonology most recent visit being 12/22/2024. History of COPD, approximately 35 pack/year smoking history. Did have episode of hypoxia during ED course, 88% requiring supplemental O2. No O2 at baseline. Suspect component of aspiration + rhinovirus. - CBC with leukocytosis 12.08; procalcitonin 0.03; VBGs pH 7.31; BioFire positive for rhinovirus; blood cx pending - CBC am - CXR reveals bilateral PNA with emphysema and elevation of L hemidiaphragm - Troponin 13; EKG NSR 69 bpm - no current CP - Aspiration precautions, fall precautions, droplet precautions - O2 prn; Previously had required O2 2L NC at all times per baseline, but per most recent pulmonary visit no additional oxygen - FV + IC - Tylenol prn fever - DuoNeb antelmo, hypertonic saline nebs - Previously on vancomycin, cefepime, and doxy for past PNA but without improv ement and worsening CXR, so was switched to Augmentin and had improvement with such - Antibiotics switched to Augmentin - Speech therapy consulted - appreciate input + recs - Pulmonology consult - appreciate recs #Asthma/COPD- Follows with pulm, no O2 at baseline; antelmo inhalers - continue #GERD/hiatal hernia/Zenker's diverticulum- Omeprazole - continue #Anxiety/depression- Propranolol, Seroquel, fluoxetine, trazodone, scheduled lorazepam - continue #Chronic diarrhea- Imodium as needed -- Patient often gets diarrhea with abx - INCREASE DOSE/FREQUENCY IF DIARRHEA STARTS #BPH/Recurrent UTI- Prophylactic bactrim #Chronic back pain/OP- Follows with pain management; On teriparatide for OP; Continue home pain regimen, will adjust as appropriate Dispo: Admit, med/tele VTE Prophylaxis: Lovenox Admission and Anticipated Discharge Date Admission Date: February 06, 2025 Supervising Physician Co-Signing Physician Notes ATTESTATION I also saw the patient and confirmed steven portions of the history and exam. I agree with the impression and plan in the resident documentation, and as summarized below. While sleeping, I got to listen to his lungs and he had fairly good lung sounds, but SPO2 was in the high 80s. Upon awakening, he tells me he feels better and w ould like to go home. It is not clear if he has home oxygen - sounds like he does (or had), but not using currently. EXAM Hemodynamically stable, afebrile A/O. NAD Lungs sound improve today; improved air exchange. DATA Micro Entero/Rhino (+) Blood cultures negative at 24 hours IMPRESSION & PLAN Rhinovirus COPD Severe protein calorie malnutrition, BMI 15.6 Appreciate pulmonary consultation Change antibiotics to doxycycline [address] consultation Additional per resident documentation Subjective Patient seen and evaluated at bedside this morning. No acute events overnight. Reviewed pulm note. Plan to de-escalate antibiotics. Overall, no acute complaints today. Expresses desire to go home. O2 sats not optimal. Review of Systems Review of Systems: reviewed, per HPI Physical Exam Physical Exam: Constitutional: ill-appearing, no acute distress HEENT: NCAT, no conjunctival injection CV: extremities well-perfused, no LE edema Resp: no increased work of breathing GI: nondistended MSK: no gross deformities appreciated Skin: warm, dry, no rash appreciated Neuro: alert, oriented, no focal neurologic deficit appreciated Results & Data Results & Data Vital Signs (Past 12 Hours) Vital Signs Temp Pulse Resp BP Pulse Ox O2 Del Method O2 Flow Rate 02/08/25 11:54 59 L 18 89 L Room Air 02/08/25 10:37 36.4 C L 61 19 101/65 92 Room Air 02/08/25 07:27 36.8 C 65 19 109/67 95 Nasal Cannula 2.0 02/08/25 07:26 65 18 Room Air 02/08/25 03:00 36.5 C 67 18 118/74 95 Room Air Resident Activity Tracking Resident Involvement: Resident Care Provided Care Provided: Adult Hospital Medicine
--- NOTE | 2025-02-08 13:24 | Pulmonology Progress Note ---
Date of Service February 08, 2025 Assessment & Plan (1) Rhinovirus: (2) Ex-smoker: (3) COPD (chronic obstructive pulmonary disease): (4) Wheezing: (5) Abnormal chest x-ray: (6) Intellectual disability: (7) Elevated hemidiaphragm: Plan Chest x-ray 02/06/2025 personally reviewed: Good inspiratory effort, bilateral costophrenic angles are clean, elevated left hemidiaphragm. Questionable atelectasis of the right middle lobe CT chest 11/27/2024 personally reviewed: Multifocal opacities appreciated in the left lung Atelectasis of the left lower lobe Elevated left hemidiaphragm No significant mediastinal lymphadenopathy -- Shortness of breath with low-grade fever Respiratory BioFire was positive only for entero/rhinovirus on 02/06/2025 Procalcitonin negative --COPD [id number] smoking history quit around the age of 45 On BrezTri at home Nebulized Brovana/Perforomist along with budesonide and Yupelri could also be thought of I do not think prednisone on a daily basis or even burst of prednisone on a regular basis will make any difference when it comes to his lung function. I would advise against using prednisone as a means for increasing the appetite. Continue with Mucinex on an as-needed basis along with flutter valve Please make note patient does have history of aspiration and I think he will get pneumonias in future as well Patient's sister is aware of this --Elevated left hemidiaphragm Chronic Etiology is not clear -- Mentally challenged --History of complication post colonoscopy, patient requiring intubation for almost 2 weeks Plan: Chest x-ray personally reviewed from today, no significant change compared to yesterday Procalcitonin is negative, he does have the entero-rhinovirus positivity. Agree with de-escalating antibiotics, doxycycline would be safest as it would be less likelihood of diarrhea compared to Augmentin Would recommend Mucinex along with flutter valve. Case discussed with RN as well as primary team Please note the above document was generated using voice recognition software. It may contain grammatical, syntax or spelling errors.Any formal questions or concerns about the content, text or information contained within the body of this dictation should be directly addressed to the provider for clarification. Admission and Anticipated Discharge Date Admission Date: February 06, 2025 Subjective Patient seen and examined at bedside. No acute distress, no adverse events overnight He was saturating 87% on room air when I entered the room, I advised him to take deep breaths and he saturation did go up to 91% Breathing mackenzie he says he is doing better but he has been having bouts of diarrhea. He already had 3 liquid stools today. Denied any chest pain Is coughing and bringing up phlegm. No hemoptysis No nausea vomiting Review of Systems 2 Review of Systems: All systems reviewed & are unremarkable except as noted in Subjective Physical Exam 2 Physical Exam: Constitutional: No acute distress HEENT: EOMI, PERRLA Respiratory system: Decreased air entry bilaterally, more decreased on the left lower side, no wheeze, no rhonchi, positive mild crackles bilateral lower lobes CVS: S1-S2 positive, no murmurs or gallops Abdomen: Soft, nontender, nondistended, positive bowel sounds x4 Extremities: +2 pulses bilaterally radialis/ dorsalis pedis, no cyanosis, no edema Neuro: Awake alert oriented x3 Psych: Normal mood and affect G/U: No Armando Skin: no rashes, warm and dry Lymphatic: no cervical or axillary lymphadenopathy Results & Data Results & Data Vital Signs (Past 12 Hours) Vital Signs Temp Pulse Resp BP Pulse Ox O2 Del Method O2 Flow Rate 02/08/25 11:54 59 L 18 89 L Room Air 02/08/25 10:37 36.4 C L 61 19 101/65 92 Room Air 02/08/25 07:27 36.8 C 65 19 109/67 95 Nasal Cannula 2.0 02/08/25 07:26 65 18 Room Air 02/08/25 03:00 36.5 C 67 18 118/74 95 Room Air Laboratory Results 02/07/25 05:36 02/07/25 05:36 PG Care Time/CCT Total # of Minutes Spent Total Time Spent with Patient: Total time spent is greater than 50% in coordination of care (as documented) at patient's floor/unit and/or counseling patient: Coding Level of Care Code 74021 SUB INP/OBS CARE 2/35MIN Diagnoses Rhinovirus B34.8 Ex-smoker Z87.891 COPD (chronic obstructive pulmonary disease) J44.9 Wheezing R06.2 Abnormal chest x-ray R93.89 Intellectual disability F79 Elevated hemidiaphragm J98.6
[2025-02-08] MEDS: LOPERAMIDE HCL 2 MG CAP PO PRN (14:55)
[2025-02-08] MEDS ORDERED: AMOXICILLIN/CLAVULANATE 875 MG TAB PO SCH (17:00)
[2025-02-08] MEDS: DOXYCYCLINE HYCLATE 100 MG CAP PO SCH (18:02)
[2025-02-08] MEDS: MELATONIN 3 MG TAB PO PRN (20:22)
[2025-02-08] MEDS: ACETAMINOPHEN 325 MG TAB PO PRN (23:10)
--- NOTE | 2025-02-09 09:09 | Electrocardiogram Report ---
Test Reason : Blood Pressure : */* mmHG Vent. Rate : 69 BPM Atrial Rate : 69 BPM P-R Int : 186 ms QRS Dur : 88 ms QT Int : 362 ms P-R-T Axes : 65 59 79 degrees QTcB Int : 387 ms Normal sinus rhythm Minimal voltage criteria for LVH, may be normal variant ( Dae product ) Borderline ECG When compared with ECG of 08-Jan-2025 20:38, T wave amplitude has increased in Lateral leads Confirmed by Quentin Tejeda ([id number]) on 02/09/2025 9:09:18 AM Referred By: REFERRED SELF Confirmed By: Quentin Tejeda
--- NOTE | 2025-02-09 10:23 | Pulmonology Progress Note ---
Date of Service February 09, 2025 Assessment & Plan (1) Rhinovirus: (2) Ex-smoker: (3) COPD (chronic obstructive pulmonary disease): (4) Wheezing: (5) Abnormal chest x-ray: (6) Intellectual disability: (7) Elevated hemidiaphragm: Plan Chest x-ray 02/06/2025 personally reviewed: Good inspiratory effort, bilateral costophrenic angles are clean, elevated left hemidiaphragm. Questionable atelectasis of the right middle lobe CT chest 11/27/2024 personally reviewed: Multifocal opacities appreciated in the left lung Atelectasis of the left lower lobe Elevated left hemidiaphragm No significant mediastinal lymphadenopathy -- Shortness of breath with low-grade fever Respiratory BioFire was positive only for entero/rhinovirus on 02/06/2025 Procalcitonin negative --COPD [id number] smoking history quit around the age of 45 On BrezTri at home Nebulized Brovana/Perforomist along with budesonide and Yupelri could also be thought of I do not think prednisone on a daily basis or even burst of prednisone on a regular basis will make any difference when it comes to his lung function. I would advise against using prednisone as a means for increasing the appetite. Continue with Mucinex on an as-needed basis along with flutter valve Please make note patient does have history of aspiration and I think he will get pneumonias in future as well Patient's sister is aware of this --Elevated left hemidiaphragm Chronic Etiology is not clear -- Mentally challenged --History of complication post colonoscopy, patient requiring intubation for almost 2 weeks Plan: Chest x-ray from today personally reviewed, it is rotated to the left, does seem to have some consolidative process in the right lower/middle lobe. Chronic left lower lobe atelectasis Based on the oxygen qualification test I think he is going to need 2 L [id number] for the time being. I will reassess him in the clinic in the near future to see if he still needs oxygen. Complete the course of Doxy for 5-7 days total Would recommend Mucinex along with flutter valve even at home. Case discussed with RT as well as primary team No further recommendation from pulmonary perspective, will sign off Please call directly with any questions Please note the above document was generated using voice recognition software. It may contain grammatical, syntax or spelling errors.Any formal questions or concerns about the content, text or information contained within the body of this dictation should be directly addressed to the provider for clarification. Admission and Anticipated Discharge Date Admission Date: February 06, 2025 Subjective Patient seen and examined at bedside. No acute distress, no adverse events overnight He was having his oxygen qualification test. He was requiring 2 L. He was saturating 93-94% on 2 L while walking He says his breathing is at baseline. Still complaining of cough and having difficulty bringing up the phlegm No nausea vomiting Diarrhea still there but it has decreased in frequency Review of Systems 2 Review of Systems: All systems reviewed & are unremarkable except as noted in Subjective Physical Exam 2 Physical Exam: Constitutional: No acute distress HEENT: EOMI, PERRLA, hard to hear Respiratory system: Decreased air entry bilaterally, more decreased on the left lower side, no wheeze, no rhonchi, positive mild crackles bilateral lower lobes CVS: S1-S2 positive, no murmurs or gallops Abdomen: Soft, nontender, nondistended, positive bowel sounds x4 Extremities: +2 pulses bilaterally radialis/ dorsalis pedis, no cyanosis, no edema Neuro: Awake alert oriented x3 Psych: Normal mood and affect G/U: No Armando Skin: no rashes, warm and dry Lymphatic: no cervical or axillary lymphadenopathy Results & Data Results & Data Vital Signs (Past 12 Hours) Vital Signs Temp Pulse Pulse Resp BP Pulse Ox O2 Del Method 02/09/25 08:40 55 L 02/09/25 07:30 Nasal Cannula 02/09/25 07:21 60 18 94 Nasal Cannula 02/09/25 07:06 36.4 C L 62 17 102/63 95 Nasal Cannula 02/09/25 02:32 36.6 C 65 20 107/60 93 Nasal Cannula 02/09/25 02:10 68 16 93 Nasal Cannula 02/08/25 23:00 65 02/08/25 22:59 67 16 91 Nasal Cannula 02/08/25 22:38 36.4 C L 68 20 112/74 95 Nasal Cannula O2 Flow Rate 02/09/25 08:40 02/09/25 07:30 2 02/09/25 07:21 2 02/09/25 07:06 2 02/09/25 02:32 02/09/25 02:10 2 02/08/25 23:00 02/08/25 22:59 2 02/08/25 22:38 Laboratory Results 02/07/25 05:36 02/07/25 05:36 PG Care Time/CCT Total # of Minutes Spent Total Time Spent with Patient: Total time spent is greater than 50% in coordination of care (as documented) at patient's floor/unit and/or counseling patient: Coding Level of Care Code 81235 SUB INP/OBS CARE 2/35MIN Diagnoses Rhinovirus B34.8 Ex-smoker Z87.891 COPD (chronic obstructive pulmonary disease) J44.9 Wheezing R06.2 Abnormal chest x-ray R93.89 Intellectual disability F79 Elevated hemidiaphragm J98.6
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
--- NOTE | 2025-02-09 13:12 | XRay Report ---
XR chest 1V portable CLINICAL HISTORY: f/u bilateral infiltrates COMPARISON STUDY: 02/08/2025 FINDINGS: Compared with the prior study, the findings in the left lung are unchanged with chronic gerardo vation of left hemidiaphragm associated with chronic scarring and atelectasis of the left lower lobe and possibly the lingular segment of the left upper lobe. The opacity in the right cardiophrenic angle is increased with air bronchograms present. This is sugg estive of progressive infiltrate/atelectasis in the medial segment of the right middle lobe. There is discoid atelectasis present in the right lower lobe. Moderately distended gas-filled hepatic flexure is interposed between the liver and the diaphragm. IMPRESSION: Stable atelectatic findings in the left lung. Progressive atelectasis or infiltrate in t he right middle lobe compared with the prior study of one day ago. ACT 112: Negative or not required by law. Electronically signed by: Jessica Friedman M.D. 02/09/2025 1:09 PM
--- NOTE | 2025-02-10 07:03 | Pulmonology Progress Note ---
Date of Service February 10, 2025 Assessment & Plan (1) Rhinovirus: (2) Ex-smoker: (3) COPD (chronic obstructive pulmonary disease): (4) Wheezing: (5) Abnormal chest x-ray: (6) Intellectual disability: (7) Elevated hemidiaphragm: Plan Chest x-ray 02/06/2025 personally reviewed: Good inspiratory effort, bilateral costophrenic angles are clean, elevated left hemidiaphragm. Questionable atelectasis of the right middle lobe CT chest 11/27/2024 personally reviewed: Multifocal opacities appreciated in the left lung Atelectasis of the left lower lobe Elevated left hemidiaphragm No significant mediastinal lymphadenopathy -- Shortness of breath with low-grade fever Respiratory BioFire was positive only for entero/rhinovirus on 02/06/2025 Procalcitonin negative --COPD [id number] smoking history quit around the age of 45 On BrezTri at home Nebulized Brovana/Perforomist along with budesonide and Yupelri could also be thought of I do not think prednisone on a daily basis or even burst of prednisone on a regular basis will make any difference when it comes to his lung function. I would advise against using prednisone as a means for increasing the appetite. Continue with Mucinex on an as-needed basis along with flutter valve Please make note patient does have history of aspiration and I think he will get pneumonias in future as well Patient's sister is aware of this --Elevated left hemidiaphragm Chronic Etiology is not clear -- Mentally challenged --History of complication post colonoscopy, patient requiring intubation for almost 2 weeks Plan: Chest x-ray on personal review from today does not show any significant change compared to yesterday. Continue with oxygen to keep O2 saturation between 90-92% I will reassess him in the clinic in the near future to see if he still needs oxygen. Complete the course of Doxy for 5-7 days total Would recommend Mucinex along with flutter valve. Continue with incentive spirometry Case discussed with RN as well as primary team No further recommendation from pulmonary perspective, will sign off Please call directly with any questions Please note the above document was generated using voice recognition software. It may contain grammatical, syntax or spelling errors.Any formal questions or concerns about the content, text or information contained within the body of this dictation should be directly addressed to the provider for clarification. Admission and Anticipated Discharge Date Admission Date: February 06, 2025 Subjective Patient seen and examined at bedside. No acute distress, no adverse events overnight He was saturating 90 through-93% on 2 L nasal cannula at rest Coughing, bringing up clear phlegm. Still has difficulty bringing up the phlegm Denies any nausea vomiting Has been afebrile Asking if he could go home Diarrhea is better controlled. Review of Systems 2 Review of Systems: All systems reviewed & are unremarkable except as noted in Subjective Physical Exam 2 Physical Exam: Constitutional: No acute distress HEENT: EOMI, PERRLA, hard to hear Respiratory system: Decreased air entry bilaterally, more decreased on the left lower side, no wheeze, no rhonchi, positive mild crackles bilateral lower lobes CVS: S1-S2 positive, no murmurs or gallops Abdomen: Soft, nontender, nondistended, positive bowel sounds x4 Extremities: +2 pulses bilaterally radialis/ dorsalis pedis, no cyanosis, no edema Neuro: Awake alert oriented x3 Psych: Normal mood and affect G/U: No Armando Skin: no rashes, warm and dry Lymphatic: no cervical or axillary lymphadenopathy Results & Data Results & Data Vital Signs (Past 12 Hours) Vital Signs Pulse Resp Pulse Ox O2 Del Method O2 Flow Rate 02/09/25 20:05 Nasal Cannula 2 02/09/25 19:30 71 18 94 Nasal Cannula 2 Laboratory Results 02/07/25 05:36 02/07/25 05:36 Diagnostic Findings 02/10/25 08:03 02/10/25 08:03 PG Care Time/CCT Total # of Minutes Spent Total Time Spent with Patient: Total time spent is greater than 50% in coordination of care (as documented) at patient's floor/unit and/or counseling patient: Coding Level of Care Code 99077 SUB INP/OBS CARE 2/35MIN Diagnoses Rhinovirus B34.8 Ex-smoker Z87.891 COPD (chronic obstructive pulmonary disease) J44.9 Wheezing R06.2 Abnormal chest x-ray R93.89 Intellectual disability F79 Elevated hemidiaphragm J98.6
[2025-02-10 08:16] LABS: Hemoglobin 13.1 g/dl (14.0-18.0); Mean Corpuscular Hemoglobin 32.3 pg (25.0-34.0); Mean Corpuscular Hgb Conc 32.8 g/dL (32.0-36.0); Mean Corpuscular Volume 98.5 fL (80.0-100.0); Mean Platelet Volume 9.3 fL (9.4-12.4); Platelet Count 275 K/uL (130-400); RDW Coefficient of Variation 13.2 % (11.5-14.5); RDW Standard Deviation 47.3 fL (36.4-46.3); Red Blood Count 4.06 M/uL (4.70-6.10); White Blood Count 10.88 K/ul (4.8-10.8)
[2025-02-10 08:34] LABS: Calcium 8.1 mg/dl (8.6-10.3); Potassium 4.6 mmol/L (3.5-5.1)
[2025-02-10 08:40] LABS: BUN Creatinine Ratio 24.4 (10-20); Creatinine Clr Calc Pharmacy 98.8 ml/min
--- NOTE | 2025-02-10 09:03 | XRay Report ---
XR chest 1V portable CLINICAL HISTORY: f/u COMPARISON STUDY: Chest CT September 26, 2025. Chest radiograph February 09, 2025. FINDINGS: Elevation of the left hemidiaphragm is unchanged. There is no pneumothorax. Trace left pleu ral effusion is unchanged. Left basilar opacity persists. Right lower lung opacities are again noted. There is no evidence for pulmonary edema. Gaseous distention of visualized portions of the colon is unchanged. IMPRESSION: 1. Persistent bibasilar opacities, left greater than right, which may represent pneumonia or atelecta sis. Continued radiographic follow-up is recommended. 2. Stable elevation of the left hemidiaphragm. ACT 112: Negative or not required by law. Electronically signed by: Johnie Jacobo M.D. 02/10/2025 9:01 AM
[2025-02-10 09:47] VITALS: BP 125/71; TEMP 97.9
[2025-02-10] MEDS: ALBUT/IPRATROP 3MG/0.5MG NEB 3 ML VIAL NEB STA (10:07)
[2025-02-10 10:09] VITALS: PULSE 99; RESP 19; O2SAT 95
--- NOTE | 2025-02-10 10:18 | Gastrointestinal Consultation ---
Date of Consultation February 10, 2025 Assessment & Plan (1) Zenker diverticulum: 69 year old male with history of COPD, OP, insomnia, constipation, HTN, BPH, GERD with esophagitis, anxiety with depression, seasonal allergies, and asthma admitted w/ rhinovirus and PNA - GI was asked to evaluate for Zenker Div erticulum s/p surgery. Case discussed w/ sister at bedside who notes he is s/p a repair of his zenker's years ago which was complicated by bleeding post-procedurally w/ a prolonged admission requiring intubation. She is not interested in moving forward w/ endoscopic evaluation or any sort of treatment of zenker's. We discussed general recommendation to include smaller more frequent meals, remaining upright after mealtime, keeping HOB elevated, acid suppression w/ PPI therapy. I spent a total of 60 minutes on the date of service in review of patient's record, and previously obtained information in person and appropriate medical visit, discussion and education of plan, with patient and/or caregiver, placing orders for tests/referral/procedures as medically necessary and documentation of pertinent clinical information in patient's medical records for their visit today. Supervising Physician Co-Signing Physician Notes I saw and examined this patient with our nurse practitioner and agree with her assessment and plan. It is possible that the Zenker's diverticulum can be contributing to his aspiration risk. Family is reluctant to pursue any invasive procedure to address the Zenker's diverticulum. We recommend that he follows up with speech therapy for potential to start therapy to improve his swallowing technique and hopefully reduce the risk of aspiration. Main underlines average usually suggests some underlying esophageal motility which is probably also contributing. His sister is aware of our recommendations and will contact the speech therapist who performed the evaluation a few months ago. History of Present Illness Reason for Consultation: Zenker Diverticulum s/p surgery yrs ago Requesting Physician: Jeremy Riley DO Attending Physician: Jeremy Riley DO History of Present Illness 69 year old male with history of COPD, OP, insomnia, constipation, HTN, BPH, GERD with esophagitis, anxiety with depression, seasonal allergies, and asthma admitted w/ rhinovirus and PNA - GI was asked to evaluate for Zenker Diverticulum s/p surgery. Pt was seen and evaluated, chart reviewed. He tells me he has had known Zenker's for years. He suggests he had surgery for Zenker's years ago but was not sure what was done or which provider this was with. He denies painful or difficulty swallowing. No nausea/vomiting. Has noted on different occasions coughing w/ liquids. Video swallow 2024: There is a small Zenker's diverticulum. There is trace aspiration, likely from overflow from the Zenker's diverticulum. Allergies Allergy/AdvReac Type Severity Reaction Status Date / Time diazepam AdvReac Intermediate OPPOSITE Verified 02/06/25 18:37 EFFECT Home Medications Medication Instructions Recorded Confirmed Type ferrous sulfate 325 mg (65 mg 325 mg PO DAILY 06/02/22 02/06/25 History iron) tablet (FeroSul) mecobalamin (vitamin B12) 5,000 5,000 mcg PO DAILY 06/02/22 02/06/25 History mcg disintegrating tablet multivitamin 1 tab PO DAILY 06/02/22 02/06/25 History vitamin B complex 1 cap PO DAILY 06/02/22 02/06/25 History nebulizer accessories #1 ea 10/30/23 01/23/25 Rx nebulizer and compressor #1 ea 10/30/23 01/23/25 Rx cholecalciferol (vitamin D3) 50 50 mcg PO DAILY 04/07/24 02/06/25 History mcg (2,000 unit) capsule (Vitamin D3) omeprazole 40 mg capsule,delayed 40 mg PO DAILY #90 caps 05/17/24 02/06/25 Rx release fluoxetine 20 mg capsule 20 mg PO DAILY #90 caps 06/16/24 02/06/25 Rx fluoxetine 40 mg capsule 40 mg PO DAILY #90 caps 06/16/24 02/06/25 Rx quetiapine 50 mg tablet 50 mg PO BID #180 tabs 06/16/24 02/06/25 Rx trazodone 100 mg tablet 100 mg PO HS #90 tabs 07/13/24 02/06/25 Rx propranolol 40 mg tablet 40 mg PO BID 90 days #180 tabs 10/06/24 02/06/25 Rx BD GINO 2 GEN PEN NDL 32G 4MM #360 ea 11/24/24 01/23/25 Rx teriparatide 20 mcg/dose (560 20 mcg (0.08 mL) subcut DAILY #2.4 11/24/24 02/06/25 Rx mcg/2.24 mL) subcutaneous pen mL injector melatonin 3 mg tablet 3 - 6 mg PO HS 11/27/24 02/06/25 History lorazepam 0.5 mg tablet 0.5 mg PO TID anxiety #90 tabs 01/02/25 02/06/25 Rx budesonide 160 mcg-glycopyr 9 2 inh inhalation BID #10.7 grams 01/03/25 02/06/25 Rx mcg-formot 4.8 mcg/actuation HFA inhaler (Breztri Aerosphere) acetaminophen 650 mg 650 mg PO DIRECTED PRN Pain 01/08/25 02/06/25 History tablet,extended release (Tylenol Arthritis Pain) albuterol sulfate 2.5 mg/3 mL 2.5 mg inhalation QID PRN 01/08/25 02/06/25 History (0.083 %) solution for nebulization Shortness Of Breath ascorbic acid (vitamin C) 500 mg 500 mg PO DAILY 01/08/25 02/06/25 History tablet (Vitamin C) ibuprofen 200 mg tablet 400 mg PO BID 01/08/25 02/06/25 History sulfamethoxazole 400 0.5 tab PO HS 01/08/25 02/06/25 History mg-trimethoprim 80 mg tablet (Bactrim) ketoconazole 2 % topical cream 1 applic topical BID #60 grams 01/19/25 02/06/25 Rx celecoxib 100 mg capsule (Celebrex) 100 mg PO BID #60 caps 01/23/25 02/06/25 Rx loperamide 2 mg capsule (Imodium 2 mg PO QPM loose stool 02/06/25 02/06/25 History A-D) Spacer for Inhaler #1 ea 02/10/25 Rx albuterol sulfate 90 mcg/actuation 2 inh inhalation QID PRN shortness 02/10/25 Rx aerosol inhaler (Ventolin HFA) of breath or wheezing #8.5 grams doxycycline hyclate 100 mg capsule 100 mg PO BIDM 5 days #10 caps 02/10/25 Rx guaifenesin 600 mg tablet, 1,200 mg (2 x 600 mg) PO Q12 #0 02/10/25 Rx extended release 12 hr (Mucinex) tabs polyethylene glycol 3350 17 gram 17 g PO DAILY PRN #0 ea 02/10/25 Rx oral powder packet (Miralax) sodium chloride 7 % for 4 ml NEB BIDR 30 days #120 mL 02/10/25 Rx nebulization Patient History Medical History Acute respiratory failure with hypoxia Generalized weakness COPD exacerbation Hx of compression fracture of spine L1 and L2 Fracture Risk Assessment Score (FRAX) indicating greater than 3% risk for hip fracture Fracture Risk Assessment Score (FRAX) indicating greater than 20% risk for major osteoporosis-related fracture Rib pain on left side Weight loss Acute UTI Chronic diarrhea Fecal incontinence Agitation Intellectual disability Otomycosis Sensorineural hearing loss (SNHL) of both ears Chronic rhinitis Chronic sinusitis Excessive cerumen in both ear canals Recurrent falls Surgical History History of sinus surgery History of tooth extraction History of cataract extraction with lens replacement History of clubfoot correction History of hernia repair Family History Mother Hearing loss Father Hypertension Cancer Prostate cancer Rheumatoid arthritis Aunt Stroke Grandfather (Maternal) Stomach cancer Other No family history of adverse response to anesthesia No family history of bleeding disorder Denies family history of Ovarian cancer Diabetes Myocardial infarction Breast cancer Lung cancer Colorectal cancer Social History Smoking Status: Former smoker Tobacco Type: Cigarettes and Smokeless Tobacco (Dip or Chew) Age Started Using Tobacco: 18; Age Quit Using Tobacco: 28; packs per day: 0; Second Hand Exposure: No; Do You Dip or Chew Tobacco: No; Hx Alcohol Use: No Hx Substance Use: No Preferred Language: Azeri Communication Ability: Effective Visual Impairment: Limited Hearing Ability: Use of Hearing Aid Plugger Worker Required: No Beliefs That Will Affect Care: None marital status: Single Current Living Situation: Alone current occupational status: disabled Feels Safe at Home: Yes Childhood Exposure to Second-Hand Smoke: No caffeine: Yes Dental Care, Regularly: No Physical Activity Frequency: Does not Exercise Seatbelt Use: always Sunscreen Use: Yes Assistive Devices: Walker Review of Systems Review of Systems: All other findings negative except as noted in HPI. Physical Exam Constitutional: WD/WN, vitals as above Gastrointestinal (Abdomen): normal bowel sounds, soft, nontender, no hepatosplenomegaly Results & Data Vital Signs (Past 12 Hours) Vital Signs Temp Pulse Resp BP BP Pulse Ox O2 Del Method 02/10/25 10:08 99 H 19 95 Nasal Cannula 02/10/25 09:47 97.9 F 69 18 125/71 91 Nasal Cannula 02/10/25 08:10 97.7 F 67 16 137/81 92 Nasal Cannula 02/10/25 07:09 88 18 94 Nasal Cannula O2 Flow Rate 02/10/25 10:08 2 02/10/25 09:47 2 02/10/25 08:10 2 02/10/25 07:09 2 PG Care Time/CCT Total # of Minutes Spent Total Time Spent with Patient: Total time spent is greater than 50% in coordination of care (as documented) at patient's floor/unit and/or counseling patient: Coding Level of Care Code 10386 INT INP/OBS CARE MIN Diagnoses Zenker diverticulum K22.5
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
--- NOTE | 2025-02-14 07:53 | Coding Query ---
CODING QUERY To promote full compliance with coding requirements relating to patient care, provider participation is requested in all cases of medical billing coder uncertainty. Please assist us with the question(s) below: Coding Question(s): Pt admitted with COPD exacerbation & Pneumonia. Progress notes document COPD,smoker,hypoxia 88% in ED. Suspect a component of aspiratoin . DS= bacterial pneumonia. Please check below the phrase that describes the aspiration. Thanks for your help! Daniel Olvera [employer] COUNTER SAL[employer]ERSON [facility] Physician's Response(s): The patient was treated for Aspiration Pneumonia, present on admission ____X___ The patient did not have aspiration Pneumonia Other: Please document: Principal Diagnosis: "that condition established after study, to be chiefly responsible for occasioning the admission of the patient to the hospital for care." Co-Existing Principal Diagnosis: "when two or more diagnoses equally meet the criteria for principal diagnosis as determined by the circumstances of admission, diagnostic work up, and/or therapy provided, and the Alphabetic Index, Tabular List, or another coding guideline does not provide sequencing direction, any one of the diagnoses may be sequenced first." "When the physician has documented what appears to be a current diagnosis in the body of the record, but has not included the diagnosis in the final diagnostic statement, the physician should be asked whether the diagnosis should be added." (Source Coding Clinic 2 QTR90. p3-4) QUAN
== END 2025-02-10 14:30 | disposition home or self-care (01) | DRG 193 ==
LOC: ED 16:18 → 4W 20:18 → SUATTDRO 20:18 → 4W 21:02 → 3W 02-09 12:32